=== PATIENT | female | born 1995 | race Caucasian/White ===

== ENCOUNTER 2016-12-28 14:29 | Outpatient (CLI) | payer OTHER | END 2016-12-28 14:30 | disposition home or self-care (01) | DX: Z36 Encounter for antenatal screening of mother (principal) ==

== ENCOUNTER 2017-02-06 03:33 | Outpatient (CLI) | payer OTHER | END 2017-02-06 03:34 | disposition critical access hospital (66) | DX: N85.8 Other specified noninflammatory disorders of uterus (principal) | CPT/HCPCS: A0425; A0427 ==

== ENCOUNTER 2017-02-06 03:55 | Outpatient (CLI) | payer OTHER | END 2017-02-06 05:40 | disposition home or self-care (01) | DX: O99.89 Other specified diseases and conditions complicating pregnancy, childbirth and the puerperium (principal); R10.2 Pelvic and perineal pain; Z3A.35 35 weeks gestation of pregnancy ==

== ENCOUNTER 2017-04-04 09:39 | Inpatient (IN) | payer OTHER ==
[2017-04-04 10:33] LABS: BILIRUBIN,URINE NEGATIVE (NEGATIVE); PH,URINE 6.5 PH (5.0-7.5)
[2017-04-04 10:38] LABS: UA w/ MICROSCOPIC CHARGE YES
[2017-04-04 10:39] LABS: BASOPHILS # (AUTO) 0.1 10^3/uL (0.0-0.1); BASOPHILS % (AUTO) 0.5 %; EOSINOPHILS # (AUTO) 0.8 10^3/uL (0.0-0.7); EOSINOPHILS % (AUTO) 4.5 %; HCT - HEMATOCRIT 36.7 % (37.0-47.0); HGB - HEMOGLOBIN 12.5 g/dL (12.0-16.0); LYMPHOCYTES % (AUTO) 10.5 %; MEAN CORPUSCULAR HEMOGLOBIN 27.1 pg (27.0-31.0); MEAN CORPUSCULAR VOLUME 79.8 fL (81.0-99.0); MEAN PLATELET VOLUME 8.6 fL (7.9-10.8); MONOCYTES % (AUTO) 5.3 %; NEUTROPHILS # (AUTO) 14.7 10^3/uL (1.5-6.6); NEUTROPHILS % (AUTO) 79.2 %; RED CELL DISTRIBUTION WIDTH 12.7 % (12.0-15.0); UNCORRECTED WHITE BLOOD COUNT 18.6 x10^3/uL; WHITE BLOOD COUNT 18.6 x10^3/uL (4.8-10.8)
[2017-04-04 10:46] LABS: UR CULTURE IF IND INDICATED; WBC,URINE 0-3 /HPF (0-5)
[2017-04-04 10:59] LABS: ALBUMIN/GLOBULIN RATIO 0.9 (1.0-2.2); BILIRUBIN,TOTAL 1.4 mg/dL (0.2-1.0); CALCIUM 9.4 mg/dL (8.5-10.3); CREATININE 0.6 mg/dL (0.4-1.0); POTASSIUM 3.9 mmol/L (3.5-5.0); TOTAL PROTEIN 7.5 g/dL (6.7-8.2)
[2017-04-04 11:09] LABS: PLATELET MORPHOLOGY 1+ LARGE PLATELETS (NORMAL)
[2017-04-04 11:10] LABS: PLATELET ESTIMATE, MANUAL NORMAL (130-450,000) (NORMAL)
--- NOTE | 2017-04-04 12:10 | ED Physician Documentation ---
PD HPI ABD PAIN - Stated complaint Stated Complaint: ABD PAIN - Chief complaint Chief Complaint: Abd Pain - History obtained from History obtained from: Patient - History of Present Illness Timing - onset: Today Timing - duration: Hours (5) Timing - details: Gradual onset Pain level max: 9 Pain level now: 0 Quality: Aching, Pain Location: All over / everywhere Radiation: No: Chest, , Lower back, Left flank, Left shoulder, Right flank, Right shoulder, Upper back Improved by: Other (nothing) Worsened by: Other (nothing) Associated symptoms: Nausea. No: Fever, Vomiting, Hematemesis, Diarrhea, Constipation, Melena, Hematochezia, Dysuria, Hematuria, Chest pain, Dizzy, Near syncope / syncope, Loss of appetite, Weight loss, Vaginal bleeding, Vaginal dc Similar symptoms before: No diagnosis Recently seen: Not recently seen - Additional information Additional information: Patient is approximately 1 month . Normal spontaneous vaginal delivery. States has had this abdominal pain 5-6 times in the past month. No fevers. Review of Systems Ten Systems: 10 systems reviewed and negative Constitutional: denies: Fever, Chills Throat: denies: Sore throat Cardiac: denies: Chest pain / pressure Respiratory: denies: Cough GI: denies: Vomiting, Diarrhea, Hematemesis, Bloody / black stool : denies: Dysuria, Frequency, Hesitancy Skin: denies: Rash Musculoskeletal: denies: Neck pain, Back pain Neurologic: denies: Headache PD PAST MEDICAL HISTORY - Past Medical History Past Medical History: Yes Neuro: Seizure disorder - Past Surgical History Past Surgical History: No - Present Medications Home Medications: Ambulatory Orders Medication Instructions Recorded Confirmed Lacosamide [Vimpat] 150 mg PO BID 04/04/17 04/04/17 levETIRAcetam [Keppra] 1,500 mg PO DAILY@0900 04/04/17 04/04/17 levETIRAcetam [Keppra] 2,250 mg PO QPM 04/04/17 04/04/17 - Allergies Allergies/Adverse Reactions: Allergies Allergy/AdvReac Type Severity Reaction Status Date / Time latex Allergy Hives Verified 04/04/17 09:47 acetaminophen AdvReac Anaphylaxis Verified 04/04/17 09:47 diphenhydramine AdvReac Anaphylaxis Verified 04/04/17 09:47 oxycodone AdvReac Anaphylaxis Verified 04/04/17 09:47 tramadol AdvReac Anaphylaxis Verified 04/04/17 09:47 PD ED PE NORMAL - Vitals Vital signs reviewed: Yes - General General: Alert and oriented X 3, No acute distress, Well developed/nourished - HEENT HEENT: Moist mucous membranes - Neck Neck: Supple, no meningeal sign - Cardiac Cardiac: RRR, Strong equal pulses - Respiratory Respiratory: No respiratory distress, Clear bilaterally - Abdomen Abdomen: Soft, Non tender, Non distended - Derm Derm: Warm and dry - Extremities Extremities: No edema - Neuro Neuro: Alert and oriented X 3 - Psych Psych: Normal mood, Normal affect Results - Vitals Vitals: Vital Signs - 24 hr 04/04/17 04/04/17 04/04/17 09:45 11:42 13:50 Temperature 36.4 C L Heart Rate 85 77 89 Respiratory 19 18 12 Rate Blood Pressure 128/74 144/80 H 142/97 H O2 Saturation 98 98 100 04/04/17 16:55 Temperature Heart Rate 90 Respiratory 18 Rate Blood Pressure 134/85 H O2 Saturation 99 Oxygen O2 Source Room air - Labs Labs: Laboratory Tests 04/04/17 04/04/17 04/04/17 10:23 10:23 10:23 WBC 18.6 H RBC 4.60 Hgb 12.5 Hct 36.7 L MCV 79.8 L MCH 27.1 MCHC 34.0 RDW 12.7 Plt Count 302 MPV 8.6 Neut # 14.7 H Lymph # 2.0 [place] # 1.0 Eos # 0.8 H Baso # 0.1 Absolute Nucleated RBC 0.00 Nucleated RBCs 0.0 Manual Slide Review Indicated Platelet Estimate NORMAL (130-450,000) Platelet Morphology 1+ LARGE PLATELETS RBC Morph Micro Appear NORMAL APPEARANCE Sodium 143 Potassium 3.9 Chloride 106 Carbon Dioxide 27 Anion Gap 10.0 BUN 9 Creatinine 0.6 Estimated GFR (MDRD) 126 Glucose 102 H Calcium 9.4 Total Bilirubin 1.4 H Direct Bilirubin AST 295 H ALT 154 H Alkaline Phosphatase 297 H Lactate Dehydrogenase Total Protein 7.5 Albumin 3.6 Globulin 3.9 Albumin/Globulin Ratio 0.9 L Triglycerides Cholesterol LDL Cholesterol, Calc VLDL Cholesterol HDL Cholesterol LDL/HDL Ratio Cholesterol/HDL Ratio Amylase Lipase 910 H Urine Color YELLOW Urine Clarity CLEAR Urine pH 6.5 Ur Specific [place] <=1.005 Urine Protein NEGATIVE Urine Glucose (UA) NEGATIVE Urine Ketones NEGATIVE Urine Occult Blood NEGATIVE Urine Nitrite NEGATIVE Urine Bilirubin NEGATIVE Urine Urobilinogen 0.2 (NORMAL) Ur Leukocyte Esterase TRACE H Urine RBC None Seen Urine WBC 0-3 Ur Squamous Epith Cells NONE SEEN Urine Bacteria None Seen Ur Microscopic Review INDICATED Urine Culture Comments INDICATED 04/04/17 04/04/17 04/04/17 10:23 10:23 10:23 WBC RBC Hgb Hct MCV MCH MCHC RDW Plt Count MPV Neut # Lymph # [place] # Eos # Baso # Absolute Nucleated RBC Nucleated RBCs Manual Slide Review Platelet Estimate Platelet Morphology RBC Morph Micro Appear Sodium Potassium Chloride Carbon Dioxide Anion Gap BUN Creatinine Estimated GFR (MDRD) Glucose Calcium Total Bilirubin Direct Bilirubin 0.6 H AST ALT Alkaline Phosphatase Lactate Dehydrogenase 472 H Total Protein Albumin Globulin Albumin/Globulin Ratio Triglycerides 200 H Cholesterol 165 LDL Cholesterol, Calc 73 VLDL Cholesterol 40 HDL Cholesterol 52 L LDL/HDL Ratio 1.4 Cholesterol/HDL Ratio 3.2 Amylase Lipase Urine Color Urine Clarity Urine pH Ur Specific [place] Urine Protein Urine Glucose (UA) Urine Ketones Urine Occult Blood Urine Nitrite Urine Bilirubin Urine Urobilinogen Ur Leukocyte Esterase Urine RBC Urine WBC Ur Squamous Epith Cells Urine Bacteria Ur Microscopic Review Urine Culture Comments 04/04/17 10:23 WBC RBC Hgb Hct MCV MCH MCHC RDW Plt Count MPV Neut # Lymph # [place] # Eos # Baso # Absolute Nucleated RBC Nucleated RBCs Manual Slide Review Platelet Estimate Platelet Morphology RBC Morph Micro Appear Sodium Potassium Chloride Carbon Dioxide Anion Gap BUN Creatinine Estimated GFR (MDRD) Glucose Calcium Total Bilirubin Direct Bilirubin AST ALT Alkaline Phosphatase Lactate Dehydrogenase Total Protein Albumin Globulin Albumin/Globulin Ratio Triglycerides Cholesterol LDL Cholesterol, Calc VLDL Cholesterol HDL Cholesterol LDL/HDL Ratio Cholesterol/HDL Ratio Amylase 390 H Lipase Urine Color Urine Clarity Urine pH Ur Specific [place] Urine Protein Urine Glucose (UA) Urine Ketones Urine Occult Blood Urine Nitrite Urine Bilirubin Urine Urobilinogen Ur Leukocyte Esterase Urine RBC Urine WBC Ur Squamous Epith Cells Urine Bacteria Ur Microscopic Review Urine Culture Comments - Rads (name of study) RUQ US Radiology: Prelim report reviewed, EMP read contemporaneously, See rad report ( no cholecystitis. Multiple small gallstones.) MRCP Radiology: Prelim report reviewed, EMP read contemporaneously, See rad report ( Cholelithiasis without evidence of cholecystitis. Normal diameter common duct. No choledocholithiasis. . Minimal fatty infiltration of the liver. ) PD MEDICAL DECISION MAKING - ED course Complexity details: reviewed results, re-evaluated patient, considered differential, d/w patient, d/w family, d/w senior environmental consultant ED course: Patient is a 21-year-old female who presents to the emergency department with abdominal pain. This subsided just after arrival to the emergency department. Appears to have pancreatitis and mildly elevated LFTs. Concern for biliary colic, likely recently passed stone. Discussed the case with Dr. Rodas, surgery who recommends an MRCP. This is performed does not show any obstructing stone at this time. She does have significantly elevated white blood cell count. He recommends admission to the hospitalist for observation, IV hydration and to ensure that she improves as expected. Will likely need cholecystectomy as well, unclear if this will happen during this admission or as an outpatient.Discussed with Dr. Belcher, hospitalist who accepts. This document was made in part using voice recognition software. While efforts are made to proofread this document, sound alike and grammatical errors may occur. Departure - Departure Disposition: 66 [facility] DC/Xfer Clinical Impression: Elevated LFTs Pancreatitis Qualifiers: Chronicity: acute Pancreatitis type: biliary Acute pancreatitis complication: unspecified Qualified Code(s): K85.10 - Biliary acute pancreatitis without necrosis or infection Leukocytosis Qualifiers: Leukocytosis type: unspecified Qualified Code(s): D72.829 - Elevated white blood cell count, unspecified Condition: Good Discharge Date/Time: 04/04/17 17:58
--- NOTE | 2017-04-04 13:57 | Ultrasound Report ---
RIGHT UPPER QUADRANT ULTRASOUND: 04/04/2017 CLINICAL INDICATION: Pain, elevated LFTs. TECHNIQUE: Real-time scanning was performed with associate sales representative static images obtained. FINDINGS: The liver measures 18.1 cm. Hepatic echogenicity is increased, suggestive of fatty infiltr ation. No focal parenchymal lesion or intrahepatic biliary dilatation is present. The common bile jessica t measures 4 mm. The gallbladder demonstrates cholelithiasis. No wall thickening or pericholecystic f luid is present. The right kidney measures 12.9 cm, and demonstrates no hydronephrosis. No free fluid is present. IMPRESSION: CHOLELITHIASIS, WITHOUT EVIDENCE OF ACUTE CHOLECYSTITIS OR BILIARY OBSTRUCTION. LIKELY F ATTY INFILTRATION OF THE LIVER. JOB #: [id number] EXT JOB #:
[2017-04-04] MEDS ORDERED: SODIUM CHLORIDE 0.9% 1,000 ML IV ONE ×2 (14:52→16:37)
--- NOTE | 2017-04-04 15:15 | HISTORY & PHYSICAL EXAMINATION ---
Chief Complaint - Chief Complaint Chief Complaint: Abdominal Pain History of Present Illness - Admitted From Admitted From:: home - History Obtained From History obtained from: patient - History of Present Illness Severity: 01/25 to 08/27 Quality: Aching Timing: intermittent Duration: 1month Improved with: nothing Worsened by: nothing Associated Symptoms: episode of vomiting and some nausea HPI Comment/Other: General Surgery Consult: 21 yo female post normal vaginal delivery x 1 month female with hx of seizures presents to ED with 1 month history of right upper quadrant pain and epigastric pain which has been "tolerable" up until yesterday when she began having nausea and vomiting and severe epigastric right upper quadrant pain which resolved by the time she came to the ED. She denies having any previous episodes. She denies any fevers or other associated symptoms other than above. She states that she is currently breast feeding. Denies chills. Ransons criteria for pancreatitis on initial evaluation 3 (LDH 472, AlkP 297, WBC 18.) Review of Systems - Constitutional Constitutional: denies: Fever, Chills, Poor appetite, Diaphoresis, Night sweats - Eyes Eyes: reports: Pain - Ears, Nose & Throat Ears, Nose & Throat: reports: Ear pain - Cardiovascular Cariovascular: denies: Irregular heart rate, Chest pain, Lightheadedness - Respiratory Respiratory: denies: Cough, Wheezing - Gastrointestinal Gastrointestinal: reports: Abdominal pain, Nausea, Vomiting. denies: Constipation, Diarrhea, Coffee grounds emesis - Genitourinary Genitourinary: denies: Dysuria - Musculoskeletal Musculoskeletal: denies: Muscle pain, Muscle aches - Integumentary Integumentary: denies: Rash, Pruritis - Neurological Neurological: reports: General weakness. denies: Headache - Psychiatric Psychiatric: denies: Depression, Anxiety - Endocrine Endocrine: denies: Polyuria, Polydypsia - Hematologic/Lymphatic Hematologic/Lymphatic: denies: Anemia, Bruising - All Other Systems All Other Systems: reports: Reviewed and negative History - Past Medical History Cardiovascular: reports: None Respiratory: reports: None Neuro: reports: Seizure disorder GI: reports: None Meds/Allgy - Home Medications Home Medications: Ambulatory Orders Medication Instructions Recorded Confirmed Lacosamide [Vimpat] 150 mg PO BID 04/04/17 04/04/17 Levetiracetam [Keppra] 750 mg PO BID 04/04/17 04/04/17 - Allergies Allergies/Adverse Reactions: Allergies Allergy/AdvReac Type Severity Reaction Status Date / Time latex Allergy Hives Verified 04/04/17 09:47 acetaminophen AdvReac Anaphylaxis Verified 04/04/17 09:47 diphenhydramine AdvReac Anaphylaxis Verified 04/04/17 09:47 oxycodone AdvReac Anaphylaxis Verified 04/04/17 09:47 tramadol AdvReac Anaphylaxis Verified 04/04/17 09:47 Exam - Vital Signs Vital Signs: Vital Signs x48h Temp Pulse Resp BP Pulse Ox 04/04/17 13:50 89 12 142/97 H 100 04/04/17 11:42 77 18 144/80 H 98 04/04/17 09:45 36.4 C L 85 19 128/74 98 - Physical Exam General Appearance: positive: No acute distress, Alert Eyes Bilateral: positive: PERRL, EOMI, No scleral icterus ENT: positive: Dry mucous membranes Neck: positive: Nml inspection Respiratory: positive: Chest non-tender, Breath sounds nml Cardiovascular: positive: Regular rate & rhythm Peripheral Pulses: positive: 2+ Abdomen: positive: Nml bowel sounds (+BS, soft obese, Non distended, TTP RUQ, Epigastric, supra umbilical. Positive Sahni's no rebound or guarding) Back: negative: CVA tenderness (R), CVA tenderness (L) Skin: positive: Color nml, Warm, Dry Extremities: positive: Full ROM Neurologic/Psychiatric: positive: Oriented x3, CN's nml (2-12) Conclusion/Plan - Lab Results Lab results reviewed: Yes Fish Bones: 04/04/17 10:23 04/04/17 10:23 - Diagnostic Imaging Results Diagnostic Imaging Results: positive: Read contemporaneously (04/04/17US RUQ : Cholelithiasis, without evidence of acute cholecystitis or Biliary obstruction, likely fatty infiltration of Liver 04/04/17 MRCP: IMPRESSION: 1. Cholelithiasis without evidence of cholecystitis. 2. Normal diameter common duct. No choledocholithiasis. 3. Minimal fatty infiltration of the liver.) - Other Other Results/Comments: 21 year old post female with history of seizures, presents with Acute pancreatitis ([place]'s Criteria 3), etiology unknown. Recommend Admit to medicine, High ransons score may need ICU monitoring Aggressive IV hydration Pain control NPO today Urinary output monitoring Am labs If deemed gallstone pancreatitis in nature, then it is recommended that patient has gallbladder removed this admission. Surgery will follow Issues/Core Measures - Anticipated LOS Anticipated Stay Length: 2 or more midnights
--- NOTE | 2017-04-04 16:25 | MRI Preliminary Report ---
Exam: MRI MRCP W/O IMPRESSION: 1. Cholelithiasis without evidence of cholecystitis. 2. Normal diameter common duct. No choledocholithiasis. 3. Minimal fatty infiltration of the liver. [facility] SITE ID: [id number]
--- NOTE | 2017-04-04 16:28 | MRI Report ---
EXAM: MR ABDOMEN WITHOUT CONTRAST (MR CHOLANGIOPANCREATOGRAPHY) EXAM DATE: 04/04/2017 04:07 PM. CLINICAL HISTORY: Abdominal pain, elevated liver function tests and lipase. COMPARISON: None. TECHNIQUE: Multiplanar breath-hold T1 and T2 sequences obtained through the abdomen on an MR scanner. Dedicated 2D and 3D MRCP sequences obtained through the biliary and pancreatic ducts. No intravenous contrast given. FINDINGS: Lung Bases: The lung bases are clear. Liver: Liver is normal in contour with a 7 mm cyst in the right lobe. Minimal fatty infiltration of t he liver. CBD: The extrahepatic ducts appear normal. The CBD is 3 mm in diameter. Gallbladder: Numerous small gallstones without gallbladder wall thickening or adjacent inflammation. Pancreas: The pancreas appears normal with no mass. The pancreatic duct measures 1 mm in diameter and appears normal with no stone or stricture. Spleen: The spleen appears normal. Kidneys and Adrenals: The kidneys appear normal with no mass or hydronephrosis. There are no cysts in the kidneys. The adrenals appear normal. Bowel: The small bowel and colon appear normal with no inflammation or obstruction. Retroperitoneum: The retroperitoneal structures appear normal with no mass or lymphadenopathy. IMPRESSION: 1. Cholelithiasis without evidence of cholecystitis. 2. Normal diameter common duct. No choledocholithiasis. 3. Minimal fatty infiltration of the liver. [facility] Referring Provider Line: [phone] SITE ID: [id number]
[2017-04-04 16:49] LABS: CHOL/HDL RATIO 3.2 (<4.4); CHOLESTEROL 165 mg/dL; HDL CHOLESTEROL 52 mg/dL; LDL/HDL RATIO 1.4 (<4.4); TRIGLYCERIDES 200 mg/dL; VLDL CHOLESTEROL 40 mg/dL
[2017-04-04] MEDS ORDERED: ZOLPIDEM 5 MG TABLET PO PRN (17:08)
[2017-04-04] MEDS ORDERED: PROCHLORPERAZINE 10 MG/2 ML VIAL IVP PRN (17:08)
[2017-04-04] MEDS ORDERED: ONDANSETRON 4 MG/2 ML VIAL IVP PRN (17:08)
[2017-04-04] MEDS ORDERED: PROMETHAZINE 25 MG/1 ML VIAL IM PRN (17:08)
[2017-04-04] MEDS ORDERED: HYDROmorphone 1 MG/ML SYRINGE IVP PRN (17:08)
[2017-04-04] MEDS ORDERED: SODIUM CHLORIDE FLUSH 0.9% 10 ML SYRINGE IVP PRN (17:08)
--- NOTE | 2017-04-04 17:45 | HISTORY & PHYSICAL EXAMINATION ---
Chief Complaint - Chief Complaint Chief Complaint: abdominal pain History of Present Illness - Admitted From Admitted From:: emergency department - History Obtained From Records Reviewed: yes History obtained from: patient Exam Limitations: no - History of Present Illness HPI Comment/Other: Patient is 21-year-old female with a past medical history significant for epilepsy and asthma who presented to the emergency department with a chief complaint of abdominal pain. Patient states the abdominal pain has been ongoing for the last month. The patient is one month and states that she has been having abdominal pain off and on since her delivery. She states that she cannot localize where the pain is she states that when the pain starts as very severe and is over the entire abdomen. She denies any radiation of the pain. She states the pain usually lasts anywhere from a few minutes to half an hour and then resolves. She does associate the pain with eating. She states that most of the episodes have occurred after she ate a meal. She states that the symptoms worsened over the last day she states that she had 6 episodes of abdominal pain today. She also states that since yesterday she started feeling nauseated and has had 2 episodes of vomiting which he never had before. She describes the abdominal pain as a spasming type of pain. She denies any fevers but does admit to chills. She denies any alcohol or tobacco use. She denies any recent illnesses. She denies any coffee-ground emesis, vaginal bleeding, hematochezia or bright red blood per rectum. On presentation to the emergency department the patient was afebrile and vital signs were within normal limits. The patient underwent routine lab work which revealed elevated liver enzymes with total bilirubin of 1.4, AST of 295, ALT of 154, alkaline phosphatase 297, LDH of 472, lipase 910 and amylase 390. This was concerning for gallstone pancreatitis and possible common bile duct stone. The patient underwent imaging study initially with a abdominal ultrasound which revealed cholelithiasis without evidence of acute cholecystitis or biliary obstruction. The patient then underwent an MRCP which revealed cholelithiasis without evidence of cholecystitis and normal diameter common bile duct. Given these findings the patient was thought to likely have had gallstone pancreatitis with a stone that had passed through and she was admitted for treatment of gallstone pancreatitis. The patient also had triglyceride level checked in the ER that was only slightly elevated. Review of Systems - Constitutional Constitutional: reports: Chills. denies: Fatigue, Fever, Malaise, Weakness, Poor appetite, Diaphoresis, Night sweats, Weight gain, Weight loss - Eyes Eyes: denies: Pain, Irritation, Amaurosis, Blurred vision, Spots in vision, Field loss, Vision loss, Dipolpia, Corrective lenses, Other - Ears, Nose & Throat Ears, Nose & Throat: denies: Ear pain, Hearing loss, Hearing aids, Tinnitus, Vertigo, Nasal pain, Nasal discharge, Nosebleeds, Nasal obstruction, Nasal congestion, Postnasal drainage, Dentures, Sore throat, Hoarseness, Mouth lesions , Bleeding gums, Dental decay, Dental pain, Other - Cardiovascular Cariovascular: denies: Irregular heart rate, Palpitations, Chest pain, Edema, Lightheadedness, Syncope, Exertional dyspnea, Decr. exercise tolerance, Orthopnea, Other - Respiratory Respiratory: denies: Cough, Sputum production, Wheezing, Snoring, Hemoptysis, Orthopnea, SOB at rest, SOB with exertion, Apnea, Stridor, Pleuritic pain, Other - Gastrointestinal Gastrointestinal: reports: Abdominal pain, Nausea, Vomiting, Bile emesis. denies: Abdominal distention, Constipation, Diarrhea, Change in bowel habits, Rectal bleeding, Black stools, Bloody stools, Ortiz blood emesis, Coffee grounds emesis, Bloating, Poor appetite - Genitourinary Genitourinary: denies: Dysuria, Frequency, Urgency, Hematuria, Incontinence, Flank pain, Nocturia, Urethral discharge, Sexual dysfunction, Other - Musculoskeletal Musculoskeletal: denies: Muscle pain, Back pain, Muscle aches, Stiffness, Limited range of motion, Muscle weakness, Gout, Joint pain, Joint swelling, Other - Integumentary Integumentary: denies: Rash, Pruritis, Lesions, Dryness, Lumps, Acne, Pigment changes, Nail changes, Hair changes, Other - Neurological Neurological: denies: General weakness, Focal weakness, Headache, Dizziness, Numbness, Memory problems, Pre-existing deficit, Abnormal gait, Seizures, Incoordination, Slurred speech, Other - Psychiatric Psychiatric: denies: Depression, Anxiety, Suicidal, Delusions, Hallucinations, Homicidal, Other - Endocrine Endocrine: denies: Polyuria, Polydypsia, Polyphagia, Intolerance to cold, Intolerance to heat, Other - Hematologic/Lymphatic Hematologic/Lymphatic: denies: Anemia, Bruising, Petechiae, Blood clots, Lymphadenopathy, Bleeding tendencies, Recurrent infections, Other History - Past Medical History Cardiovascular: reports: None Respiratory: reports: Asthma Neuro: reports: Seizure disorder GI: reports: None - Family & Social History Family History: Mother: Cancer (Ovarian), Other family: CAD (Grandfather) Living arrangement: At home Living Situation: With spouse/s.o. Social History Notes: Patient is originally from [place] and moved to [place] with her who is in the [place]. She had a baby girl one month ago. Her is going to be deployed for a month starting on Saturday and the patient needs to get home by then to take care of her daughter. - Substance History Use: Uses substance without health or social issues: NONE Abuse: Recurrent use of substance despite neg consequences: NONE Dependence: Experiences withdrawal or developed tolerances: NONE - POLST Patient has POLST: No POLST Status: Full Code Meds/Allgy - Home Medications Home Medications: Ambulatory Orders Medication Instructions Recorded Confirmed Lacosamide [Vimpat] 150 mg PO BID 04/04/17 04/04/17 Levetiracetam [Keppra] 750 mg PO BID 04/04/17 04/04/17 - Allergies Allergies/Adverse Reactions: Allergies Allergy/AdvReac Type Severity Reaction Status Date / Time latex Allergy Hives Verified 04/04/17 09:47 acetaminophen AdvReac Anaphylaxis Verified 04/04/17 09:47 diphenhydramine AdvReac Anaphylaxis Verified 04/04/17 09:47 oxycodone AdvReac Anaphylaxis Verified 04/04/17 09:47 tramadol AdvReac Anaphylaxis Verified 04/04/17 09:47 Exam - Vital Signs Reviewed Vital Signs: Yes Vital Signs: Vital Signs x48h Temp Pulse Resp BP Pulse Ox 04/04/17 16:55 90 18 134/85 H 99 04/04/17 13:50 89 12 142/97 H 100 04/04/17 11:42 77 18 144/80 H 98 04/04/17 09:45 36.4 C L 85 19 128/74 98 - Physical Exam General Appearance: positive: No acute distress, Alert Eyes Bilateral: positive: Normal inspection, PERRL, EOMI, No lid inflammation, Conjunctivae nml, No scleral icterus ENT: positive: ENT inspection nml, Pharynx nml, Dry mucous membranes. negative : Purulent nasal drainage, Pharyngeal erythema, Oral lesions Neck: positive: Nml inspection, Thyroid nml, No JVD, Trachea midline. negative : Thyromegaly, Lymphadenopathy (R), Lymphadenopathy (L) Respiratory: positive: Chest non-tender, No respiratory distress, Breath sounds nml. negative: Wheezes, Rales, Rhonchi Cardiovascular: positive: Regular rate & rhythm, No murmur, No gallop Peripheral Pulses: positive: 2+ Abdomen: positive: Nml bowel sounds, Tenderness (epigastric and RUQ). negative : Guarding, Rebound, Hepatomegaly, Splenomegaly Back: positive: Nml inspection. negative: CVA tenderness (R), CVA tenderness (L ) Skin: positive: Color nml, No rash, Warm, Dry Extremities: positive: Non-tender, Full ROM, Nml appearance, No pedal edema Neurologic/Psychiatric: positive: Oriented x3, CN's nml (2-12), Motor nml, Sensation nml, Mood/affect nml Conclusion/Plan - Problem List (1) Pancreatitis Conclusion/Plan: Patient presented with abdominal pain for the past 1 month with worsening pain over the last day and increased nausea and vomiting Labs revealed elevated LFTs and elevated Lipase and amylase consistent with pancreatitis Abd ultrasound showed gallstones but no cholecystitis or CBD stone MRCP was also negative for CBD stone or cholecystitis but again showed gallstones Patient does not drink and her triglyceride level was normal Likely gallstone pancreatitis Plan: NPO IVFs Pain control Anti-emetics Surgery consult for cholecystectomy Daily amylase and lipase BiSAP score is 0 Ransons score of 4 which give 15% predicted mortality Qualifiers: Chronicity: acute Pancreatitis type: biliary Acute pancreatitis complication: unspecified Qualified Code(s): K85.10 - Biliary acute pancreatitis without necrosis or infection (2) Cholelithiasis Conclusion/Plan: Gallstones seen on ultrasound and MRCP Likely cause of pancreatitis and biliary colic for last month Currently no CBD stones Patient appears to have passed obstructing stone Surgery consult for cholecystectomy once pancreatitis cools down (3) Epilepsy Conclusion/Plan: Stable No recent seizures Continue home meds (4) Asthma Conclusion/Plan: Stable No wheezing Albuterol prn (5) Fatty liver Conclusion/Plan: Likely secondary to obesity and poor diet Patient counselled about weight loss and lifestyle changes (6) Prophylactic use of low molecular weight heparin for venous thromboembolism Conclusion/Plan: On lovenox - Lab Results Lab results reviewed: Yes Fish Bones: 04/04/17 10:23 04/04/17 10:23 - Diagnostic Imaging Results Diagnostic Imaging Results: positive: Final report reviewed - EKG Results EKG Interpreted Independently: Yes Issues/Core Measures - Anticipated LOS Anticipated Stay Length: 2 or more midnights - DVT/VTE - Prophylaxis VTE/DVT Prophylaxis med ordered at admit?: Yes
[2017-04-04] MEDS ORDERED: ALBUTEROL NEB 2.5 MG/3 ML INH PRN (18:01)
[2017-04-04] MEDS: SODIUM CHLORIDE 0.9% 1,000 ML IV SCH (19:05)
[2017-04-04] MEDS ORDERED: levETIRAcetam 250 MG TABLET PO SCH ×2 (21:00)
[2017-04-04] MEDS: IBUPROFEN 600 MG TABLET PO PRN (21:20)
[2017-04-04] MEDS: SODIUM CHLORIDE FLUSH 0.9% 10 ML SYRINGE IVP SCH (21:21)
[2017-04-04] MEDS: LACOSAMIDE 150 MG PO SCH (21:21)
[2017-04-05] MEDS: SODIUM CHLORIDE 0.9% 1,000 ML IV SCH ×3 (02:41→18:41)
[2017-04-05 06:00] LABS: BASOPHILS % (AUTO) 0.3 %; EOSINOPHILS % (AUTO) 9.1 %; HCT - HEMATOCRIT 35.3 % (37.0-47.0); HGB - HEMOGLOBIN 11.5 g/dL (12.0-16.0); LYMPHOCYTES % (AUTO) 25.3 %; MEAN CORPUSCULAR HEMOGLOBIN 26.6 pg (27.0-31.0); MEAN CORPUSCULAR HGB CONC 32.6 g/dL (32.0-36.0); MEAN CORPUSCULAR VOLUME 81.5 fL (81.0-99.0); MEAN PLATELET VOLUME 8.5 fL (7.9-10.8); MONOCYTES % (AUTO) 5.4 %; NEUTROPHILS % (AUTO) 59.9 %; RED BLOOD COUNT 4.34 10^6/uL (4.20-5.40); UNCORRECTED WHITE BLOOD COUNT 12.6 x10^3/uL; WHITE BLOOD COUNT 12.6 x10^3/uL (4.8-10.8)
[2017-04-05] MEDS: PANTOPRAZOLE 40 MG TABLET PO SCH (06:03)
[2017-04-05] MEDS: SODIUM CHLORIDE FLUSH 0.9% 10 ML SYRINGE IVP SCH ×3 (06:03→20:01)
[2017-04-05 06:16] LABS: ALBUMIN/GLOBULIN RATIO 0.9 (1.0-2.2); AMYLASE 251 U/L (28-100); BILIRUBIN,TOTAL 0.7 mg/dL (0.2-1.0); BUN - BLOOD UREA NITROGEN 8 mg/dL (6-20); CALCIUM 8.6 mg/dL (8.5-10.3); CARBON DIOXIDE - CO2 26 mmol/L (21-32); CHLORIDE 111 mmol/L (101-111); CHOLESTEROL 218 mg/dL; CREATININE 0.6 mg/dL (0.4-1.0); GFR - MDRD 126 (>89); GLUCOSE 80 mg/dL (70-100); HDL CHOLESTEROL 44 mg/dL; LDL/HDL RATIO 3.3 (<4.4); LIPASE 92 U/L (22-51); MAGNESIUM 1.9 mg/dL (1.7-2.8); POTASSIUM 3.8 mmol/L (3.5-5.0); SODIUM 144 mmol/L (135-145); TOTAL PROTEIN 6.5 g/dL (6.7-8.2); TRIGLYCERIDES 153 mg/dL; VLDL CHOLESTEROL 31 mg/dL
[2017-04-05] MEDS: LACOSAMIDE 150 MG PO SCH (06:59)
[2017-04-05 07:02] LABS: BAND NEUTROPHILS % (MANUAL) 4 %; EOSINOPHILS % (MANUAL) 5 %; LYMPHOCYTES % (MANUAL) 34 %; NEUTROPHILS % (MANUAL) 50 %; NP AUTO DIFFERENTIAL? YES; NP MAN DIFFERENTIAL? NO; PLATELET ESTIMATE, MANUAL NORMAL (130-450,000) (NORMAL); TOTAL CELLS COUNTED 100
--- NOTE | 2017-04-05 07:38 | PROVIDER PROGRESS NOTE ---
Assessment/Plan - Problem List (1) Pancreatitis Qualifiers: Chronicity: acute Pancreatitis type: unspecified pancreatitis type Acute pancreatitis complication: unspecified Qualified Code(s): K85.90 - Acute pancreatitis without necrosis or infection, unspecified Assessment/Plan: 21 yo female with hx of epilepsy & asthma, present with acute pancreatitis found to have cholelithiasis & elevated triglycerides Patient condition much improved. LFT's/ Lipase trending down. Patient informed that she should have a cholecystectomy this admission before discharge. 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 The risks of recurrent pancreatitis if caused by gallstones, possible much worse was discussed with the patient and why the current dogma is to remove the gallbladder. The patient stated she understands the risks. Since she is adamant about leaving in the next day or so and not having a cholecystectomy she was instructed to follow up with the surgical clinic and to call the clinic to schedule an appointment for follow up as soon as she is discharged so a planned cholecystectomy can be performed. - Current Meds Current Meds: Current Medications Generic Name Dose Route Start Last Admin Trade Name Freq PRN Reason Stop Dose Admin Sodium Chloride 1,000 mls @ 125 mls/hr 04/04/17 18:00 04/05/17 02:41 Normal Saline 0.9% IV 125 mls/hr .Q8H ANAIS Administration Ibuprofen 600 mg 04/04/17 17:08 04/04/17 21:20 Motrin PO 600 mg Q6HR PRN Administration Pain 1 to 4 Levetiracetam 2,250 mg 04/04/17 21:00 04/04/17 21:21 Keppra PO Not Given QPM ANAIS Levetiracetam 1,500 mg 04/05/17 09:00 04/05/17 07:00 Keppra PO 1,500 mg DAILY@0900 ANAIS Administration Pantoprazole Sodium 40 mg 04/05/17 07:00 04/05/17 06:03 Protonix PO Not Given QDAC ANAIS (Lacosamide [Vimpat] 1 each 04/04/17 21:00 04/05/17 06:59 150 Mg) Tab PO 1 each BID ANAIS Administration Sodium Chloride 10 ml 04/04/17 22:00 04/05/17 06:03 Normal Saline Flush 0.9% IVP Not Given Q8HR ANAIS - Lab Result Fish Bone Diagrams: 04/05/17 05:45 04/05/17 05:45 Subjective - Subjective Patient Reports: Feeling Better, Resting Comfortably, No Complaints Objective Vital Signs: Vital Signs - 24 hr 04/04/17 04/04/17 04/04/17 18:05 20:15 21:26 Temperature 36.9 C 37.6 C H Heart Rate 70 Heart Rate [ 69 71 Brachial] Respiratory 16 16 18 Rate Blood Pressure 128/81 H 132/86 H [Left Brachial artery] O2 Saturation 99 98 04/05/17 00:08 Temperature 36.7 C Heart Rate Heart Rate [ 71 Brachial] Respiratory 16 Rate Blood Pressure 127/76 [Left Brachial artery] O2 Saturation 99 Oxygen O2 Source Room air I&O (Last 24 Hrs): Intake and Output Totals x24h 04/03/17 04/04/17 04/05/17 23:59 23:59 23:59 Intake Total 1300 Balance 1300 General: Alert, Oriented x3 HEENT: PERRLA, EOMI Neck: Supple Neuro: Alert Cardiovascular: Regular rate Respiratory: Breath sounds nml Abdomen: Normal bowel sounds, Soft, No tenderness - Results Results: Laboratory Results WBC 12.6 x10^3/uL (4.8-10.8) H 04/05/17 05:45 RBC 4.34 10^6/uL (4.20-5.40) 04/05/17 05:45 Hgb 11.5 g/dL (12.0-16.0) L 04/05/17 05:45 Hct 35.3 % (37.0-47.0) L 04/05/17 05:45 MCV 81.5 fL (81.0-99.0) 04/05/17 05:45 MCH 26.6 pg (27.0-31.0) L 04/05/17 05:45 MCHC 32.6 g/dL (32.0-36.0) 04/05/17 05:45 RDW 13.0 % (12.0-15.0) 04/05/17 05:45 Plt Count 296 10^3/uL (130-450) 04/05/17 05:45 MPV 8.5 fL (7.9-10.8) 04/05/17 05:45 Neut # Not Reportable 04/05/17 05:45 Lymph # Not Reportable 04/05/17 05:45 [place] # Not Reportable 04/05/17 05:45 Eos # Not Reportable 04/05/17 05:45 Baso # Not Reportable 04/05/17 05:45 Absolute Nucleated RBC Not Reportable 04/05/17 05:45 Total Counted 100 04/05/17 05:45 Band Neuts % (Manual) 4 % (0-10) 04/05/17 05:45 Neutrophils # (Manual) 6.8 10^3/uL (1.5-6.6) H 04/05/17 05:45 Lymphocytes # (Manual) 4.3 10^3/uL (1.5-3.5) H 04/05/17 05:45 Monocytes # (Manual) 0.9 10^3/uL (0.0-1.0) 04/05/17 05:45 Eosinophils # (Manual) 0.6 10^3/uL (0-0.7) 04/05/17 05:45 Nucleated RBCs Not Reportable 04/05/17 05:45 Differential Comment MANUAL DIFFERENTIAL 04/05/17 05:45 Manual Slide Review Indicated 04/04/17 10:23 Platelet Estimate NORMAL (130-450,000) (NORMAL) 04/05/17 05:45 Platelet Morphology 1+ LARGE PLATELETS (NORMAL) 04/04/17 10:23 RBC Morph Micro Appear NORMAL APPEARANCE (NORMAL) 04/05/17 05:45 Sodium 144 mmol/L (135-145) 04/05/17 05:45 Potassium 3.8 mmol/L (3.5-5.0) 04/05/17 05:45 Chloride 111 mmol/L (101-111) 04/05/17 05:45 Carbon Dioxide 26 mmol/L (21-32) 04/05/17 05:45 Anion Gap 7.0 (6-13) 04/05/17 05:45 BUN 8 mg/dL (6-20) 04/05/17 05:45 Creatinine 0.6 mg/dL (0.4-1.0) 04/05/17 05:45 Estimated GFR (MDRD) 126 (>89) 04/05/17 05:45 Glucose 80 mg/dL (70-100) 04/05/17 05:45 Lactic Acid 0.6 mmol/L (0.5-2.2) 04/05/17 05:45 Calcium 8.6 mg/dL (8.5-10.3) 04/05/17 05:45 Phosphorus 4.0 mg/dL (2.5-4.6) 04/05/17 05:45 Magnesium 1.9 mg/dL (1.7-2.8) 04/05/17 05:45 Total Bilirubin 0.7 mg/dL (0.2-1.0) 04/05/17 05:45 Direct Bilirubin 0.6 mg/dL (0.1-0.5) H 04/04/17 10:23 AST 109 IU/L (10-42) H 04/05/17 05:45 ALT 160 IU/L (10-60) H 04/05/17 05:45 Alkaline Phosphatase 261 IU/L (42-121) H 04/05/17 05:45 Lactate Dehydrogenase 472 IU/L (91-225) H 04/04/17 10:23 Total Protein 6.5 g/dL (6.7-8.2) L 04/05/17 05:45 Albumin 3.1 g/dL (3.2-5.5) L 04/05/17 05:45 Globulin 3.4 g/dL (2.1-4.2) 04/05/17 05:45 Albumin/Globulin Ratio 0.9 (1.0-2.2) L 04/05/17 05:45 Triglycerides 153 mg/dL (-149) H 04/05/17 05:45 Cholesterol 218 mg/dL (-199) H 04/05/17 05:45 LDL Cholesterol, Calc 143 mg/dL (-129) H 04/05/17 05:45 VLDL Cholesterol 31 mg/dL 04/05/17 05:45 HDL Cholesterol 44 mg/dL (60-) L 04/05/17 05:45 LDL/HDL Ratio 3.3 (<4.4) 04/05/17 05:45 Cholesterol/HDL Ratio 5.0 (<4.4) 04/05/17 05:45 Amylase 251 U/L (28-100) H 04/05/17 05:45 Lipase 92 U/L (22-51) H 04/05/17 05:45 Urine Color YELLOW 04/04/17 10:23 Urine Clarity CLEAR (CLEAR) 04/04/17 10:23 Urine pH 6.5 PH (5.0-7.5) 04/04/17 10:23 Ur Specific [place] <=1.005 (1.002-1.030) 04/04/17 10:23 Urine Protein NEGATIVE mg/dL (NEGATIVE) 04/04/17 10:23 Urine Glucose (UA) NEGATIVE mg/dL (NEGATIVE) 04/04/17 10:23 Urine Ketones NEGATIVE mg/dL (NEGATIVE) 04/04/17 10:23 Urine Occult Blood NEGATIVE (NEGATIVE) 04/04/17 10:23 Urine Nitrite NEGATIVE (NEGATIVE) 04/04/17 10:23 Urine Bilirubin NEGATIVE (NEGATIVE) 04/04/17 10:23 Urine Urobilinogen 0.2 (NORMAL) E.U./dL (NORMAL) 04/04/17 10:23 Ur Leukocyte Esterase TRACE (NEGATIVE) H 04/04/17 10:23 Urine RBC None Seen /HPF (0-5) 04/04/17 10:23 Urine WBC 0-3 /HPF (0-5) 04/04/17 10:23 Ur Squamous Epith Cells NONE SEEN (<= Few) 04/04/17 10:23 Urine Bacteria None Seen /HPF (None Seen) 04/04/17 10:23 Ur Microscopic Review INDICATED 04/04/17 10:23 Urine Culture Comments INDICATED 04/04/17 10:23
[2017-04-05] MEDS ORDERED: LEVETIRACETAM 750 MG PO SCH (08:52)
[2017-04-05] MEDS ORDERED: levETIRAcetam 250 MG TABLET PO SCH (09:00)
[2017-04-05] MEDS: POLYETHYLENE GLYCOL 3350 17 GM PACKET PO SCH (10:18)
[2017-04-05] MEDS: ENOXAPARIN 40 MG/0.4 ML SYRINGE SUBQ SCH (10:18)
[2017-04-05] MEDS: LEVETIRACETAM 750 MG PO SCH (10:23)
[2017-04-05] MEDS ORDERED: LACOSAMIDE 150 MG PO SCH (10:37)
--- NOTE | 2017-04-05 17:03 | PROVIDER PROGRESS NOTE ---
Assessment/Plan - Problem List (1) Pancreatitis Qualifiers: Chronicity: acute Pancreatitis type: unspecified pancreatitis type Acute pancreatitis complication: unspecified Qualified Code(s): K85.90 - Acute pancreatitis without necrosis or infection, unspecified Assessment/Plan: Patient presented with abdominal pain for the past 1 month with worsening pain over the last day and increased nausea and vomiting Labs revealed elevated LFTs and elevated Lipase and amylase consistent with pancreatitis Abd ultrasound showed gallstones but no cholecystitis or CBD stone MRCP was also negative for CBD stone or cholecystitis but again showed gallstones Patient does not drink alcohol and her triglyceride level was normal Likely gallstone pancreatitis Patient is NPO and getting IVFs She only required motrin for headache overnight and has not been nauseated Her Lipase is down to 92 from 910 and her amylase is down to 251 from 390 Her LFTs are also improving slowly Surgery is on board Will take her to OR tomorrow for lap keo if enzymes continue to improve 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 Qualifiers: Chronicity: acute Pancreatitis type: biliary Acute pancreatitis complication: unspecified Qualified Code(s): K85.10 - Biliary acute pancreatitis without necrosis or infection (2) Cholelithiasis Conclusion/Plan: Gallstones seen on ultrasound and MRCP Likely cause of pancreatitis and biliary colic for last month Currently no CBD stones Patient appears to have passed obstructing stone Surgery will take patient to OR for lap keo tomorrow if enzymes continue to improve (3) Epilepsy Conclusion/Plan: Stable No recent seizures Continue home meds (4) Asthma Conclusion/Plan: Stable No wheezing Albuterol prn (5) Fatty liver Conclusion/Plan: Likely secondary to obesity and poor diet Patient counselled about weight loss and lifestyle changes (6) Prophylactic use of low molecular weight heparin for venous thromboembolism Conclusion/Plan: On lovenox - Current Meds Current Meds: Current Medications Generic Name Dose Route Start Last Admin Trade Name Freq PRN Reason Stop Dose Admin Enoxaparin Sodium 40 mg 04/05/17 09:00 04/05/17 10:18 Lovenox SUBQ Not Given DAILY ANAIS Sodium Chloride 1,000 mls @ 125 mls/hr 04/04/17 18:00 04/05/17 10:58 Normal Saline 0.9% IV 125 mls/hr .Q8H ANAIS Administration Ibuprofen 600 mg 04/04/17 17:08 04/04/17 21:20 Motrin PO 600 mg Q6HR PRN Administration Pain 1 to 4 Pantoprazole Sodium 40 mg 04/05/17 07:00 04/05/17 06:03 Protonix PO Not Given QDAC ANAIS Patient Own Medication 2 each 04/05/17 09:00 04/05/17 10:23 Patient Own Medication PO Not Given QDAC ANAIS Polyethylene Glycol 17 gm 04/05/17 09:00 04/05/17 10:18 Miralax PO Not Given DAILY ANAIS Sodium Chloride 10 ml 04/04/17 22:00 04/05/17 16:04 Normal Saline Flush 0.9% IVP Not Given Q8HR ANAIS - Lab Result Lab results reviewed: Yes Fish Bone Diagrams: 04/05/17 05:45 04/05/17 05:45 - EKG Results EKG Interpreted Independently: Yes - Diagnostic Imaging Results Diagnostic Imaging Results: positive: Final report reviewed - Additional Planning Condition/Complexity: Improved My Orders: My Active Orders 04/04/17 18:01 Albuterol 2.5 mg INH RTQ4H PRN 04/04/17 21:13 RT [Nebulizer/MDI Tx.] [RC] .Q4PRN 04/05/17 08:52 Patient Own Med [Patient Own Medication] 3 each PO DAILY@1900 04/05/17 09:00 Patient Own Med [Patient Own Medication] 2 each PO QDAC 04/05/17 10:37 Patient Own Med [Patient Own Medication] 1 each PO 0700,1900 Consult/Specialty: Surgery Plan Discussed with:: Patient Time Spent: 31-60 minutes Subjective - Subjective Patient Reports: Feeling Better (Patient states her pain is better controlled, she denies any abdominal pain or nausea. She does state she has a headache and is starving. She denies any fevers or chills.) Nursing Reports: No Complaints Objective Vital Signs: Vital Signs - 24 hr 04/04/17 04/04/17 04/04/17 18:05 20:15 21:26 Temperature 36.9 C 37.6 C H Heart Rate 70 Heart Rate [ 69 71 Brachial] Respiratory 16 16 18 Rate Blood Pressure 128/81 H 132/86 H [Left Brachial artery] O2 Saturation 99 98 05/19/17 05/19/17 05/19/17 00:08 07:58 10:00 Temperature 36.7 C 37.3 C Heart Rate 67 Heart Rate [ 71 84 Brachial] Respiratory 16 16 16 Rate Blood Pressure 127/76 126/84 H [Left Brachial artery] O2 Saturation 99 98 Oxygen O2 Source Room air I&O (Last 24 Hrs): Intake and Output Totals x24h 04/03/17 04/04/17 04/05/17 23:59 23:59 23:59 Intake Total 2240 Balance 2240 General: Alert, Oriented x3, Cooperative, No acute distress HEENT: Atraumatic, PERRLA, EOMI, Mucous membr. moist/pink Neck: Supple, No JVD, No thyromegaly, +2 carotid pulse wo bruit, No LAD Lymphatic: no adenopathy Neuro: Alert, Non Focal, CN 2-12 Grossly Intact, Oriented Times 3 Cardiovascular: Regular rate, Normal S1, Normal S2, No murmurs Respiratory: Chest non-tender, No respiratory distress, Breath sounds nml Abdomen: Normal bowel sounds, Soft, Other (epigastric tenderness mild, no guarding) Extremities: No clubbing, No cyanosis, No edema, Normal pulses Skin: No rashes, No breakdown, No significant lesion - Results Results: Laboratory Results WBC 12.6 x10^3/uL (4.8-10.8) H 04/05/17 05:45 RBC 4.34 10^6/uL (4.20-5.40) 04/05/17 05:45 Hgb 11.5 g/dL (12.0-16.0) L 04/05/17 05:45 Hct 35.3 % (37.0-47.0) L 04/05/17 05:45 MCV 81.5 fL (81.0-99.0) 04/05/17 05:45 MCH 26.6 pg (27.0-31.0) L 04/05/17 05:45 MCHC 32.6 g/dL (32.0-36.0) 04/05/17 05:45 RDW 13.0 % (12.0-15.0) 04/05/17 05:45 Plt Count 296 10^3/uL (130-450) 04/05/17 05:45 MPV 8.5 fL (7.9-10.8) 04/05/17 05:45 Neut # Not Reportable 04/05/17 05:45 Lymph # Not Reportable 04/05/17 05:45 Tyrrell # Not Reportable 04/05/17 05:45 Eos # Not Reportable 04/05/17 05:45 Baso # Not Reportable 04/05/17 05:45 Absolute Nucleated RBC Not Reportable 04/05/17 05:45 Total Counted 100 04/05/17 05:45 Band Neuts % (Manual) 4 % (0-10) 04/05/17 05:45 Neutrophils # (Manual) 6.8 10^3/uL (1.5-6.6) H 04/05/17 05:45 Lymphocytes # (Manual) 4.3 10^3/uL (1.5-3.5) H 04/05/17 05:45 Monocytes # (Manual) 0.9 10^3/uL (0.0-1.0) 04/05/17 05:45 Eosinophils # (Manual) 0.6 10^3/uL (0-0.7) 04/05/17 05:45 Nucleated RBCs Not Reportable 04/05/17 05:45 Differential Comment MANUAL DIFFERENTIAL 04/05/17 05:45 Manual Slide Review Indicated 04/04/17 10:23 Platelet Estimate NORMAL (130-450,000) (NORMAL) 04/05/17 05:45 Platelet Morphology 1+ LARGE PLATELETS (NORMAL) 04/04/17 10:23 RBC Morph Micro Appear NORMAL APPEARANCE (NORMAL) 04/05/17 05:45 Sodium 144 mmol/L (135-145) 04/05/17 05:45 Potassium 3.8 mmol/L (3.5-5.0) 04/05/17 05:45 Chloride 111 mmol/L (101-111) 04/05/17 05:45 Carbon Dioxide 26 mmol/L (21-32) 04/05/17 05:45 Anion Gap 7.0 (6-13) 04/05/17 05:45 BUN 8 mg/dL (6-20) 04/05/17 05:45 Creatinine 0.6 mg/dL (0.4-1.0) 04/05/17 05:45 Estimated GFR (MDRD) 126 (>89) 04/05/17 05:45 Glucose 80 mg/dL (70-100) 04/05/17 05:45 Lactic Acid 0.6 mmol/L (0.5-2.2) 04/05/17 05:45 Calcium 8.6 mg/dL (8.5-10.3) 04/05/17 05:45 Phosphorus 4.0 mg/dL (2.5-4.6) 04/05/17 05:45 Magnesium 1.9 mg/dL (1.7-2.8) 04/05/17 05:45 Total Bilirubin 0.7 mg/dL (0.2-1.0) 04/05/17 05:45 Direct Bilirubin 0.6 mg/dL (0.1-0.5) H 04/04/17 10:23 AST 109 IU/L (10-42) H 04/05/17 05:45 ALT 160 IU/L (10-60) H 04/05/17 05:45 Alkaline Phosphatase 261 IU/L (42-121) H 04/05/17 05:45 Lactate Dehydrogenase 472 IU/L (91-225) H 04/04/17 10:23 Total Protein 6.5 g/dL (6.7-8.2) L 04/05/17 05:45 Albumin 3.1 g/dL (3.2-5.5) L 04/05/17 05:45 Globulin 3.4 g/dL (2.1-4.2) 04/05/17 05:45 Albumin/Globulin Ratio 0.9 (1.0-2.2) L 04/05/17 05:45 Triglycerides 153 mg/dL (-149) H 04/05/17 05:45 Cholesterol 218 mg/dL (-199) H 04/05/17 05:45 LDL Cholesterol, Calc 143 mg/dL (-129) H 04/05/17 05:45 VLDL Cholesterol 31 mg/dL 04/05/17 05:45 HDL Cholesterol 44 mg/dL (60-) L 04/05/17 05:45 LDL/HDL Ratio 3.3 (<4.4) 04/05/17 05:45 Cholesterol/HDL Ratio 5.0 (<4.4) 04/05/17 05:45 Amylase 251 U/L (28-100) H 04/05/17 05:45 Lipase 92 U/L (22-51) H 04/05/17 05:45 Urine Color YELLOW 04/04/17 10:23 Urine Clarity CLEAR (CLEAR) 04/04/17 10:23 Urine pH 6.5 PH (5.0-7.5) 04/04/17 10:23 Ur Specific [place] <=1.005 (1.002-1.030) 04/04/17 10:23 Urine Protein NEGATIVE mg/dL (NEGATIVE) 04/04/17 10:23 Urine Glucose (UA) NEGATIVE mg/dL (NEGATIVE) 04/04/17 10:23 Urine Ketones NEGATIVE mg/dL (NEGATIVE) 04/04/17 10:23 Urine Occult Blood NEGATIVE (NEGATIVE) 04/04/17 10:23 Urine Nitrite NEGATIVE (NEGATIVE) 04/04/17 10:23 Urine Bilirubin NEGATIVE (NEGATIVE) 04/04/17 10:23 Urine Urobilinogen 0.2 (NORMAL) E.U./dL (NORMAL) 04/04/17 10:23 Ur Leukocyte Esterase TRACE (NEGATIVE) H 04/04/17 10:23 Urine RBC None Seen /HPF (0-5) 04/04/17 10:23 Urine WBC 0-3 /HPF (0-5) 04/04/17 10:23 Ur Squamous Epith Cells NONE SEEN (<= Few) 04/04/17 10:23 Urine Bacteria None Seen /HPF (None Seen) 04/04/17 10:23 Ur Microscopic Review INDICATED 04/04/17 10:23 Urine Culture Comments INDICATED 04/04/17 10:23
[2017-04-05] MEDS: IBUPROFEN 600 MG TABLET PO PRN (17:10)
[2017-04-05 18:52] LABS: HCG UR QUAL NEGATIVE
[2017-04-05] MEDS: LACOSAMIDE 50 MG PO SCH (20:00)
[2017-04-06] MEDS: SODIUM CHLORIDE 0.9% 1,000 ML IV SCH (02:22)
[2017-04-06] MEDS: SODIUM CHLORIDE FLUSH 0.9% 10 ML SYRINGE IVP SCH ×2 (05:32→12:20)
[2017-04-06] MEDS: PANTOPRAZOLE 40 MG TABLET PO SCH (06:23)
[2017-04-06] MEDS: LEVETIRACETAM 750 MG PO SCH (06:23)
[2017-04-06 06:27] LABS: BASOPHILS % (AUTO) 0.2 %; EOSINOPHILS # (AUTO) 0.9 10^3/uL (0.0-0.7); EOSINOPHILS % (AUTO) 8.1 %; LYMPHOCYTES # (AUTO) 3.2 10^3/uL (1.5-3.5); LYMPHOCYTES % (AUTO) 27.6 %; MEAN CORPUSCULAR HEMOGLOBIN 26.4 pg (27.0-31.0); MEAN CORPUSCULAR HGB CONC 32.5 g/dL (32.0-36.0); MEAN CORPUSCULAR VOLUME 81.2 fL (81.0-99.0); MEAN PLATELET VOLUME 8.6 fL (7.9-10.8); MONOCYTES # (AUTO) 0.6 10^3/uL (0.0-1.0); MONOCYTES % (AUTO) 5.2 %; NEUTROPHILS # (AUTO) 6.7 10^3/uL (1.5-6.6); NEUTROPHILS % (AUTO) 58.9 %; RED BLOOD COUNT 4.55 10^6/uL (4.20-5.40); RED CELL DISTRIBUTION WIDTH 12.9 % (12.0-15.0); UNCORRECTED WHITE BLOOD COUNT 11.4 x10^3/uL; WHITE BLOOD COUNT 11.4 x10^3/uL (4.8-10.8)
[2017-04-06 06:39] LABS: ALBUMIN/GLOBULIN RATIO 0.8 (1.0-2.2); BILIRUBIN,TOTAL 0.9 mg/dL (0.2-1.0); CREATININE 0.6 mg/dL (0.4-1.0); MAGNESIUM 1.8 mg/dL (1.7-2.8); PHOSPHORUS 3.8 mg/dL (2.5-4.6); POTASSIUM 3.9 mmol/L (3.5-5.0); TOTAL PROTEIN 7.1 g/dL (6.7-8.2)
[2017-04-06] MEDS: LACOSAMIDE 50 MG PO SCH (07:21)
[2017-04-06] MEDS: ENOXAPARIN 40 MG/0.4 ML SYRINGE SUBQ SCH (08:00)
[2017-04-06] MEDS: POLYETHYLENE GLYCOL 3350 17 GM PACKET PO SCH (08:01)
[2017-04-06] MEDS ORDERED: LACTATED RINGERS 1,000 ML IV ONE ×3 (09:33→11:00)
[2017-04-06] MEDS ORDERED: PROPOFOL 200 MG/20 ML VIAL IVP ONE (09:40)
[2017-04-06] MEDS ORDERED: LIDOCAINE-MPF 2% 5 ML VIAL IM ONE (09:40)
[2017-04-06] MEDS ORDERED: MIDAZOLAM 2 MG/2 ML VIAL IVP ONE (09:40)
[2017-04-06] MEDS ORDERED: ROCURONIUM 50 MG/5 ML VIAL IVP ONE (09:40)
[2017-04-06] MEDS ORDERED: fentaNYL 100 MCG/2 ML VIAL IVP ONE (09:40)
[2017-04-06] MEDS ORDERED: NEOSTIGMINE 1 MG/1 ML 10 ML MDV IVP ONE (09:40)
[2017-04-06] MEDS ORDERED: ONDANSETRON 4 MG/2 ML VIAL IVP ONE (09:40)
[2017-04-06] MEDS ORDERED: ACETAMINOPHEN 1,000 MG/100 ML VIAL IV ONE (09:40)
[2017-04-06] MEDS ORDERED: GLYCOPYRROLATE 1 MG/5 ML VIAL IVP ONE (09:40)
[2017-04-06] MEDS ORDERED: SUCCINYLCHOLINE 200 MG/10 ML VIAL IVP ONE (09:40)
[2017-04-06] MEDS ORDERED: BUPIVACAINE 0.5%-EPI 1:200000 PF 30 ML VIAL SUBQ ONE ×2 (09:45→10:22)
--- NOTE | 2017-04-06 09:50 | PROVIDER PROGRESS NOTE ---
Hospitalist Cross-cover Note - Cross-Cover Note Cross-Cover Note: Patient feeling well this morning. Headache but no abdominal pain, no nausea or vomiting. Lipase and amylase now normal. LFTs improving. She is going for surgery at 9am this morning. Planned Lap Caryn. If no complication she will go home this evening. Patient NPO will be able to eat after surgery.
[2017-04-06] MEDS: fentaNYL 100 MCG/2 ML VIAL ONE ×2 (10:43→11:15)
[2017-04-06] MEDS ORDERED: MEPERIDINE 50 MG/ML SYRINGE ONE (10:43)
[2017-04-06] MEDS ORDERED: ACETAMINOPHEN/CODEINE 300 MG/30 MG TABLET PO PRN (10:54)
[2017-04-06] MEDS: IBUPROFEN 600 MG TABLET PO PRN (12:17)
--- NOTE | 2017-04-06 12:42 | Discharge Plan ---
Discharge Plan Disposition: 01 Home, Self Care Condition: Fair Prescriptions: Hydromorphone HCl [Dilaudid] 4 mg PO Q6H PRN #15 tablet PRN Reason: Pain Ibuprofen [Motrin] 600 mg PO Q6H #30 tablet Ondansetron [Zofran Odt] 8 mg PO Q8H PRN #20 tab.rapdis PRN Reason: Nausea / Vomiting Diet: Regular Activity Restrictions: Activity as Tolerated Shower Restrictions: No Driving Restrictions: No Weight Bearing: Full Weight Additional Instructions or Follow Up instructions: You presented with gallstone pancreatitis. You improved and had your gallbladder removed laproscopically. You may have pain after the surgery for which I have prescribed you medication. You may also have nausea for which I have also prescribed you medication. You want to take it easy for the next week. No heavy lifting over 20 lbs for the next week. No Smoking: If you smoke, Please STOP! Call for help.
[2017-04-06 13:21] VITALS: BP 142/81
[2017-04-06] MEDS ORDERED: IBUPROFEN 600 MG TABLET PO SCH (16:00)
[2017-04-06] MEDS ORDERED: LACOSAMIDE 50 MG PO SCH (19:00)
--- NOTE | 2017-04-07 02:02 | OPERATIVE REPORT ---
DATE OF SURGERY: 04/06/2017 00:00:00 PREOPERATIVE DIAGNOSIS: Gallstone pancreatitis. POSTOPERATIVE DIAGNOSIS: Gallstone pancreatitis. NAME OF PROCEDURE: Laparoscopic cholecystectomy. SURGEON: Rhina Kidd MD ANESTHESIOLOGIST: Rai Mckay CRNA INDICATIONS FOR PROCEDURE: This is a 21-year-old female who was admitted for gallstone pancreatitis and subsequently had resolution of her pancreatitis with normalization of her LFTs with a normal MRCP. She is now being taken to the operating room for laparoscopic cholecystectomy. FINDINGS: After obtaining informed consent from the patient, she was brought into the operating room and positioned on the operating table in the supine position, taking note of pressure points. She was intubated. SCD boots were applied. She was prepped and draped in the usual sterile fashion, and a time out was taken according to protocol. An infraumbilical 1 cm incision was created and deepened down toward the fascia. This was grasped and elevated, a Veress needle inserted, and the abdominal cavity insufflated. A 5 mm incision was created in the patient's epigastric region just to the right of the midline, and using the Optiview trocar, the site was entered. The Veress needle was removed and a 12 mm port placed at the umbilicus. Two additional 5 mm ports were placed along the right lateral abdominal wall. The gallbladder was grasped and retracted over the dome of the liver. It was noted to be somewhat distended. Filmy adhesions of the omentum to the liver were brought down with Bovie cautery. The base of the gallbladder was grasped and retracted medially, exposing the lateral attachments , and these were opened up, exposing the cystic duct. The cystic duct was circumferentially dissected from surrounding fatty tissue. The artery was similarly dissected out circumferentially and the critical view was obtained. The cystic duct was clipped with 2 clips placed proximally, 1 distally, and divided. The cystic artery was similarly clipped with 2 clips proximally, 1 clip distally and divided. The gallbladder was then transected off of the gallbladder fossa with electrocautery. There was some bleeding to the liver bed during this process. The liver was noted to be quite soft, as the patient is 1 month , and bled easily. The gallbladder was placed in a specimen bag and removed through the umbilical port after extending it slightly. The suction packer insulation was then utilized to inspect the liver bed and the gallbladder fossa. There were some areas of bleeding in the liver bed. This was controlled with electrocautery; however, there continued to be a very minimal amount of oozing, and Surgicel was placed in the gallbladder fossa. After adequate hemostasis was achieved and irrigation fluid removed, the umbilical port site was closed with a Chago-Nicola device using a figure-of- eight Vicryl suture. The liver bed was again inspected, and hemostasis again was noted to be achieved. The abdominal cavity was desufflated. The skin incisions were closed with 4-0 Monocryl. Then, 30 mL of local anesthetic was administered. Dermabond was applied. The patient was extubated and taken to recovery in stable condition. ESTIMATED BLOOD LOSS: 20 mL. FLUIDS RECEIVED: 900 mL of crystalloid. COMPLICATIONS: None. SPECIMENS: Gallbladder. JOB #: [id number] EXT JOB #:[id number] MTDNeeta
--- NOTE | 2017-04-07 08:12 | DISCHARGE SUMMARY ---
DATE OF ADMISSION: 04/04/2017 DATE OF DISCHARGE: 04/06/2017 PRIMARY CARE PHYSICIAN: None. DISCHARGING PHYSICIAN: Jamari Belcher MD DISCHARGE DIAGNOSES 1. Gallstone pancreatitis. 2. Cholelithiasis status post laparoscopic cholecystectomy. 3. Epilepsy. 4. Asthma. 5. Fatty liver. 6. Venous thromboembolism prophylaxis. DISCHARGE MEDICATIONS 1. Keppra 1500 mg p.o. q.a.m. and 2250 mg p.o. q.p.m. 2. Vimpat 150 mg p.o. b.i.d. 3. Zofran ODT 8 mg p.o. q.8h. p.r.n. for nausea or vomiting. 4. Motrin 600 mg p.o. q.6h. p.r.n. for pain. 5. Dilaudid 4 mg p.o. q.6h. p.r.n. for pain. HOSPITAL COURSE: The patient is a 21-year-old female with a past medical history significant for epil epsy and asthma, who presents to the emergency department with a chief complaint of abdominal pain. T he patient stated the pain had been ongoing for the past month. The patient was 1 month an d states that after her delivery she has been having off and on abdominal pain, which she described a s spasmy and stated that it would last for a few minutes to half an hour and then resolve. She stated that it would come on after she ate certain foods. She stated, however, the pain worsened over the l ast 2 days and she had more frequent episodes and then became nauseated and began vomiting. It was at the point that she decided to come in to the emergency department. On presentation to the emergency department, the patient had normal vital signs. Her pain had resolve d, but her lab work revealed an elevated bilirubin of 1.4 with elevated AST 295 and ALT of 154, alkal ine phosphatase 297, LDH 472, lipase 910 and amylase of 390. There was obvious concern for gallstone pancreatitis and possible common bile duct stone. Therefore, the patient underwent imaging study, thompson de oliveira with abdominal ultrasound, which revealed cholelithiasis without evidence of acute cholecystit is or biliary obstruction. The patient then underwent an MRCP, which revealed cholelithiasis without evidence of cholecystitis and normal diameter common bile duct. Given these findings, the patient was thought to likely have gallstone pancreatitis with a stone that had passed through, and she was admi tted to the hospital for gallstone pancreatitis. The patient's triglyceride level was within normal l imits. She stated that she is not a drinker. The patient was treated with IV fluids. She was kept n.p .o. and given as needed pain and nausea medication. The patient's enzymes improved over the next 48 h ours. As her lipase and amylase returned to normal range, her AST also returned to the normal range. ALT had improved and alkaline phosphatase had improved. Her total bilirubin also returned to normal r rod. The patient had a leukocytosis on presentation of 18.6, which improved to 11.4. As it appeared that her pancreas and liver had cooled off, she was taken to the OR for laparoscopic cholecystectomy. The patient had a successful laparoscopic cholecystectomy. Her gallbladder was edematous and did hav e stones, but was removed successfully. Postop, the patient did well. She was able to eat her lunch a nd she was slightly nauseated but able to tolerate the lunch. The patient was discharged home in stab le condition. She will need to follow up with her primary care physician. She was prescribed an antie metic and pain medication with a small prescription for Dilaudid as she was ALLERGIC TO OXYCODONE, an d she was also given Motrin. The patient is currently ; therefore, we will try to stay a way from the opioids. PHYSICAL EXAMINATION AT DISCHARGE VITAL SIGNS: Temperature 36.6, heart rate 60, blood pressure of 133/84, respiratory rate 18, O2 satur ation 98% on room air. GENERAL: The patient is alert and able to answer all my questions appropriately. She does not appear to be in any acute distress. HEENT: Pupils are equal and reactive to light. Extraocular muscles are intact. Mucous membranes are m oist. There is no conjunctival pallor or scleral icterus noted. NECK: Supple. No thyromegaly. No JVD. Trachea is midline. LYMPH NODES: There is no cervical or axillary lymphadenopathy noted. CARDIOVASCULAR: S1, S2 regular rate and rhythm. No murmurs, rubs, or gallops. LUNGS: Clear to auscultation bilaterally. No wheezes, rhonchi, or crackles. ABDOMEN:: Obese, soft and mildly tender in the area of the surgical incision. Otherwise, no guarding, no rebound, no peritoneal signs. Bowel sounds are present. EXTREMITIES: No lower extremity edema. Peripheral pulses are palpable. There is no cyanosis or clubbi ng. MUSCULOSKELETAL: The patient has good range of motion. No joint tenderness, no joint effusion. SKIN: No skin rash, lesions, cellulitis, or abscesses. NEUROLOGIC: The patient is alert and oriented x3. Cranial nerves 2-12 are grossly intact. Strength is grossly normal. Sensations are intact. LABORATORY: WBC is 11.4, hemoglobin 12.0, hematocrit 37.0, platelet count 324, sodium 139, potassium 3.9, chloride 104, carbon dioxide 22, BUN 10, creatinine 0.6, glucose 62, calcium 9.0, phosphorus 3.8 , magnesium 1.8, total bilirubin 0.9, AST 36, ALT 112, alkaline phosphatase 237, total protein 7.1, a lbumin 3.2, triglycerides 153, lipase 19, amylase 67. UA negative. IMAGING 1. Ultrasound of abdomen, impression: Cholelithiasis without evidence of acute cholecystitis or bilia ry obstruction, likely fatty infiltration of the liver. 2. MRCP, impression: Cholelithiasis without evidence of cholecystitis. Normal diameter common duct, n o (please verify states no cholelithiasis), minimal fatty infiltration of the liver. FOLLOWUP/RECOMMENDATIONS: The patient is being discharged to home with her and 1-month-old da ferozhter. She presented with pancreatitis thought to be secondary to gallstone pancreatitis. The patien t's pancreas and liver enzymes cooled off; therefore, she underwent a laparoscopic cholecystectomy. S he was discharged later on the day of the surgery as she was doing well, she was able to tolerate her lunch and needed to get home to take care of her daughter as her was being deployed the foll owing morning. The patient was discharged with an antiemetic as well as pain medication. The patient will follow up with her primary care physician as needed. She was also told to try to take it easy fo r the next week. She was told not to lift anything greater than 20 pounds and to drink plenty of flui d and get plenty of rest. Greater than 30 minutes were spent on discharge. JOB #: [id number] EXT JOB #:[id number]
== END 2017-04-06 13:45 | disposition home or self-care (01) | DRG 769 ==
LOC: ED 09:39 → MS 17:08
PROVIDERS: ADMIT Internal Medicine; ATTEND Internal Medicine
PROC: 0FT44ZZ Resection of Gallbladder, Percutaneous Endoscopic Approach (ICD-10-PCS; principal; 2017-04-06 08:00)
DX: O99.63 Diseases of the digestive system complicating the puerperium (principal); K85.10 Biliary acute pancreatitis without necrosis or infection; K80.20 Calculus of gallbladder without cholecystitis without obstruction; G40.909 Epilepsy, unspecified, not intractable, without status epilepticus; J45.909 Unspecified asthma, uncomplicated; K76.0 Fatty (change of) liver, not elsewhere classified
CPT/HCPCS: 36415; 74181; 76705; 80053; 80061; 81001; 81003; 81025; 82150; 82248; 83605; 83615; 83690; 83735; 84100; 85025; 87086; 88304; 96360; 99283; 99285

== ENCOUNTER 2018-01-08 17:32 | Emergency (ER) | payer OTHER ==
--- NOTE | 2018-01-08 18:50 | ED Physician Documentation ---
PD HPI LOWER EXT INJURY - Stated complaint Stated Complaint: R LEG INJ - Chief complaint Chief Complaint: Ext Problem - History obtained from History obtained from: Patient, Family - History of Present Illness PD HPI LOW EXT INJURY LOCATION: Right, Lower leg Type of injury: Fall (Down stairs) Where injury occurred: Home Timing - onset: How many days ago (4) Timing - duration: Days (4) Timing - details: Abrupt onset Pain level max: 6 Pain level now: 3 Improved by: Rest, Ice Worsened by: Palpating, Other (walking) Associated symptoms: Swelling, Discolored (ecchymosis). No: Weakness, Numbness , Tingling Contributing factors: No: Anticoagulated, Prior ortho surgery Similar symptoms before: Has not had sx before Recently seen: Not recently seen Review of Systems : denies: Now EGA Skin: denies: Rash Musculoskeletal: denies: Neck pain, Back pain PD PAST MEDICAL HISTORY - Past Medical History Cardiovascular: None Respiratory: Asthma Neuro: Seizure disorder GI: None - Past Surgical History Past Surgical History: No HEENT: Tonsil/Adenoidectomy - Present Medications Home Medications: Ambulatory Orders Medication Instructions Recorded Confirmed Lacosamide [Vimpat] 150 mg PO BID 04/04/17 04/04/17 levETIRAcetam [Keppra] 1,500 mg PO DAILY@0900 04/04/17 04/04/17 levETIRAcetam [Keppra] 2,250 mg PO QPM 04/04/17 04/04/17 Meloxicam [Mobic] 7.5 mg PO BID PRN #20 tablet 01/08/18 - Allergies Allergies/Adverse Reactions: Allergies Allergy/AdvReac Type Severity Reaction Status Date / Time latex Allergy Hives Verified 01/08/18 17:44 acetaminophen AdvReac Anaphylaxis Verified 01/08/18 17:44 diphenhydramine AdvReac Anaphylaxis Verified 01/08/18 17:44 oxycodone AdvReac Anaphylaxis Verified 01/08/18 17:44 tramadol AdvReac Anaphylaxis Verified 01/08/18 17:44 - Social History Does the pt smoke?: No Smoking Status: Never smoker Does the pt drink ETOH?: No - Immunizations Immunizations are current?: Yes - POLST Patient has POLST: No POLST Status: Full Code PD ED PE NORMAL - Vitals Vital signs reviewed: Yes - General General: Alert and oriented X 3, No acute distress - Derm Derm: Warm and dry - Extremities Extremities: No calf tenderness / cord, Other (R LE - mild ecchymosis and tenderness along the tibia. no calf tenderness. FROM of the knee, ankle and foot without pain. NVI) - Neuro Neuro: Alert and oriented X 3 Results - Vitals Vitals: Vital Signs - 24 hr 01/08/18 01/08/18 17:42 20:42 Temperature 37.3 C 36.4 C L Heart Rate 87 82 Respiratory 16 18 Rate Blood Pressure 146/82 H 142/75 H O2 Saturation 100 99 Oxygen O2 Source Room air - Rads (name of study) R tib/fib Radiology: Prelim report reviewed, EMP read contemporaneously, See rad report ( normal) PD MEDICAL DECISION MAKING - ED course Complexity details: reviewed results, re-evaluated patient, considered differential, d/w patient, d/w family ED course: Patient is a 22-year-old female who presents to the emergency department with a contusion of the right lower extremity, no acute findings on x-ray. Will place on crutches to help take some weight off of the area until the bruising heals. Compartments are soft. No evidence of DVT or infection. Patient counseled regarding signs and symptoms for which I believe and urgent re-evaluation would be necessary. Patient with good understanding of and agreement to plan and is comfortable going home at this time This document was made in part using voice recognition software. While efforts are made to proofread this document, sound alike and grammatical errors may occur. Departure - Departure Disposition: 01 Home, Self Care Clinical Impression: Contusion of tibia Condition: Good Instructions: ED Contusion Lower Ext Follow-Up: your,doctor in 1 week [Other] Prescriptions: Meloxicam [Mobic] 7.5 mg PO BID PRN #20 tablet PRN Reason: Pain Comments: Return if you worsen. Use the crutches as needed. Discharge Date/Time: 01/08/18 20:43
--- NOTE | 2018-01-08 19:56 | XRAY Report ---
EXAM: RIGHT TIBIA/FIBULA RADIOGRAPHY EXAM DATE: 01/08/2018 07:26 PM. CLINICAL HISTORY: Anterior pain since fall down stairs 5 days ago. COMPARISON: None. TECHNIQUE: 2 views. FINDINGS: Bones: Normal. No fracture or bone lesion. Joints: The visualized knee and ankle joints are normal. No effusions. Soft Tissues: Normal. No soft tissue swelling. IMPRESSION: Normal tibia/fibula radiography. [facility] Referring Provider Line: [phone] SITE ID: [id number]
[2018-01-08] MEDS ORDERED: MELOXICAM 7.5 MG TABLET PO STA (20:28)
[2018-01-08 20:43] VITALS: BP 142/75
== END 2018-01-08 20:43 | disposition home or self-care (01) ==
LOC: ED 17:32
DX: S80.11XA Contusion of right lower leg, initial encounter (principal); W10.9XXA Fall (on) (from) unspecified stairs and steps, initial encounter; Y92.009 Unspecified place in unspecified non-institutional (private) residence as the place of occurrence of the external cause; G40.909 Epilepsy, unspecified, not intractable, without status epilepticus; J45.909 Unspecified asthma, uncomplicated
CPT/HCPCS: 99283

== ENCOUNTER 2019-02-24 10:44 | Inpatient (IN) | payer OTHER ==
[2019-02-24 11:06] LABS: BILIRUBIN,URINE NEGATIVE (NEGATIVE); GLUCOSE, URINE (UA) NEGATIVE (NEGATIVE); KETONES,URINE (UA) NEGATIVE (NEGATIVE); LEUKOCYTE ESTERASE, URINE TRACE (NEGATIVE); NITRITE,URINE NEGATIVE (NEGATIVE); OCCULT BLOOD,URINE NEGATIVE (NEGATIVE); PH,URINE 7.5 PH (5.0-7.5); PROTEIN,URINE NEGATIVE (NEGATIVE); UROBILINOGEN,URINE 0.2 (NORMAL) E.U./dL (NORMAL)
[2019-02-24 11:10] LABS: CLARITY,URINE CLEAR (CLEAR); HCG UR QUAL NEGATIVE
[2019-02-24 11:21] LABS: BACTERIA,URINE Rare /HPF (None Seen); RBC,URINE 0-5 /HPF (0-5); SQUAMOUS EPITHELIAL CELL,UR FEW Squamous (<= Few)
[2019-02-24 11:22] LABS: BASOPHILS # (AUTO) 0.1 10^3/uL (0.0-0.1); BASOPHILS % (AUTO) 0.6 %; EOSINOPHILS # (AUTO) 0.5 10^3/uL (0.0-0.7); HGB - HEMOGLOBIN 14.4 g/dL (12.0-16.0); LYMPHOCYTES # (AUTO) 3.2 10^3/uL (1.5-3.5); LYMPHOCYTES % (AUTO) 24.3 %; MEAN CORPUSCULAR VOLUME 81.8 fL (81.0-99.0); MONOCYTES # (AUTO) 0.6 10^3/uL (0.0-1.0); MONOCYTES % (AUTO) 4.9 %; NEUTROPHILS # (AUTO) 8.6 10^3/uL (1.5-6.6); NEUTROPHILS % (AUTO) 66.2 %; PLT - PLATELET COUNT 282 10^3/uL (130-450); RED BLOOD COUNT 5.32 10^6/uL (4.20-5.40); RED CELL DISTRIBUTION WIDTH 12.4 % (12.0-15.0)
[2019-02-24 11:39] LABS: ALBUMIN/GLOBULIN RATIO 1.1 (1.0-2.2); BILIRUBIN,TOTAL 0.9 mg/dL (0.2-1.0); CALCIUM 9.9 mg/dL (8.5-10.3); CREATININE 0.6 mg/dL (0.4-1.0); TOTAL PROTEIN 7.8 g/dL (6.7-8.2)
--- NOTE | 2019-02-24 11:42 | ED Physician Documentation ---
PD HPI ABD PAIN - Stated complaint Stated Complaint: LOW ABD PX - Chief complaint Chief Complaint: Abd Pain - History obtained from History obtained from: Patient - History of Present Illness Timing - onset: How many days ago (2-3) Timing - duration: Days (2-3) Timing - details: Gradual onset, Still present Quality: Cramping, Aching, Pain Location: Periumbilical, RLQ Radiation: No: Right flank Improved by: No: Eating Worsened by: No: Eating Associated symptoms: Nausea. No: Fever, Diarrhea (but had loose stool initial day), Dysuria, Hematuria, Near syncope / syncope, Vaginal dc Similar symptoms before: Has not had sx before Review of Systems Constitutional: reports: Chills, Myalgias. denies: Fever Nose: reports: Congestion. denies: Rhinorrhea / runny nose Throat: denies: Sore throat Respiratory: denies: Cough GI: reports: Abdominal Pain, Nausea. denies: Abdominal Swelling, Vomiting, Constipation : reports: Irregular menses (on OCPs, with last period though about 2 months ago. Had been regular prior.). denies: Dysuria, Frequency, Discharge Musculoskeletal: denies: Neck pain, Back pain Neurologic: denies: Generalized weakness, Focal weakness, Numbness PD PAST MEDICAL HISTORY - Past Medical History Cardiovascular: None Respiratory: Asthma GI: None - Past Surgical History Past Surgical History: No HEENT: Tonsil/Adenoidectomy - Present Medications Home Medications: Ambulatory Orders Medication Instructions Recorded Confirmed Lacosamide [Vimpat] 150 mg PO BID 04/04/17 04/04/17 levETIRAcetam [Keppra] 1,500 mg PO DAILY@0900 04/04/17 04/04/17 levETIRAcetam [Keppra] 2,250 mg PO QPM 04/04/17 04/04/17 Meloxicam [Mobic] 7.5 mg PO BID PRN #20 tablet 01/08/18 - Allergies Allergies/Adverse Reactions: Allergies Allergy/AdvReac Type Severity Reaction Status Date / Time latex Allergy Hives Verified 02/24/19 10:47 acetaminophen AdvReac Anaphylaxis Verified 02/24/19 10:47 azithromycin AdvReac Unknown Verified 02/24/19 14:20 diphenhydramine AdvReac Anaphylaxis Verified 02/24/19 10:47 oxycodone AdvReac Anaphylaxis Verified 02/24/19 10:47 tramadol AdvReac Anaphylaxis Verified 02/24/19 10:47 - Social History Does the pt smoke?: No Smoking Status: Never smoker Does the pt drink ETOH?: No - Immunizations Immunizations are current?: Yes - POLST Patient has POLST: No POLST Status: Full Code PD ED PE NORMAL - Vitals Vital signs reviewed: Yes - General General: Alert and oriented X 3, No acute distress, Well developed/nourished - HEENT HEENT: Pharynx benign - Neck Neck: Supple, no meningeal sign, No adenopathy - Cardiac Cardiac: RRR, No murmur - Respiratory Respiratory: Clear bilaterally - Abdomen Abdomen: Soft, Non distended, No organomegaly, Other (She is tender slightly in the periumbilical area and predominantly in the right lower quadrant with some localized guarding. The rest of the abdomen is nontender. There is no percussion tenderness.) - Female Female : Sponge Hooker present, Other (There is moderate thin mucousy to white discharge with some redness and inflammation of the cervix and some endocervical discharge. She is tender on pelvic exam to the right.) - Back Back: No CVA TTP - Derm Derm: Normal color, Warm and dry - Extremities Extremities: No tenderness to palpate, Normal ROM s pain, No edema, No calf tenderness / cord Results - Vitals Vitals: Vital Signs - 24 hr 02/24/19 02/24/19 10:47 12:14 Temperature 36.6 C 37 C Heart Rate 101 H 78 Respiratory 18 16 Rate Blood Pressure 161/93 H 127/86 H O2 Saturation 99 100 Oxygen O2 Source Room air - Labs Labs: Microbiology 02/24/19 13:12 Wet Prep - Final Vaginal Laboratory Tests 02/24/19 02/24/19 02/24/19 10:58 11:16 11:16 WBC 13.0 H RBC 5.32 Hgb 14.4 Hct 43.5 MCV 81.8 MCH 27.0 MCHC 33.0 RDW 12.4 Plt Count 282 MPV 8.0 Neut # (Auto) 8.6 H Lymph # (Auto) 3.2 Dane # (Auto) 0.6 Eos # (Auto) 0.5 Baso # (Auto) 0.1 Absolute Nucleated RBC 0.00 Nucleated RBC % 0.0 Sodium 141 Potassium 4.2 Chloride 103 Carbon Dioxide 27 Anion Gap 11.0 BUN 9 Creatinine 0.6 Estimated GFR (MDRD) 124 Glucose 95 Calcium 9.9 Total Bilirubin 0.9 AST 27 ALT 37 Alkaline Phosphatase 107 Total Protein 7.8 Albumin 4.0 Globulin 3.8 Albumin/Globulin Ratio 1.1 Lipase 23 Urine Color YELLOW Urine Clarity CLEAR Urine pH 7.5 Ur Specific [place] 1.010 Urine Protein NEGATIVE Urine Glucose (UA) NEGATIVE Urine Ketones NEGATIVE Urine Occult Blood NEGATIVE Urine Nitrite NEGATIVE Urine Bilirubin NEGATIVE Urine Urobilinogen 0.2 (NORMAL) Ur Leukocyte Esterase TRACE H Urine RBC 0-5 Urine WBC 0-3 Ur Squamous Epith Cells FEW Squamous Urine Bacteria Rare Ur Microscopic Review INDICATED Urine Culture Comments INDICATED Urine HCG, Qual NEGATIVE - Rads (name of study) abd CT Radiology: Prelim report reviewed, Discussed with rads (Ovarian cystic structure measuring 2-3 cm. No free fluid is seen. The appendix is well-seen and normal. No other acute process.) PD MEDICAL DECISION MAKING - ED course Complexity details: considered differential (Concerning for urinary tract such as bladder infection or reproductive such as cyst. She is on oral contraceptives and has a normal test. Exam is most concerning for appendicitis given the location and increasing character of it with elevated white count. Opted for CT scan which showed a normal appendix but an ovarian cystic structure. Pelvic exam showed some evidence for pelvic infection concerning for chlamydia on exam. This would raise the concern for tubo-ovarian abscess rather than simple cyst. I will consult gynecology and see their recommendations.), d/w patient, d/w jewelry consultant (Discussed with Dr. Lyons who said it was suspicious for abscess rather than cyst and will put the patient in the hospital for antibiotics and further evaluation.) Departure - Departure Disposition: [facility] DC/Xfer Clinical Impression: Right lower quadrant abdominal pain, Right ovarian cyst, Pelvic infection in female, Tubo-ovarian abscess Condition: Stable Record reviewed to determine appropriate education?: Yes
[2019-02-24] MEDS ORDERED: ONDANSETRON 4 MG/2 ML VIAL IVP STA ×2 (12:12→14:13)
[2019-02-24] MEDS ORDERED: SODIUM CHLORIDE 0.9% 1,000 ML IV ONE (12:12)
[2019-02-24] MEDS ORDERED: MORPHINE 10 MG/ML VIAL IVP STA (12:12)
[2019-02-24] MEDS ORDERED: IOVERSOL 320 100 ML VIAL IVP ONE ×2 (12:23→13:42)
--- NOTE | 2019-02-24 12:56 | CT Report ---
Reason: RLQ pain for 1-2 days, increasing Procedure Date: 02/24/2019 Accession Number: [id number] / [id number] Procedure: CT - Abdomen/Pelvis W CPT Code: FULL RESULT: EXAM: CT ABDOMEN AND PELVIS EXAM DATE: 02/24/2019 12:39 PM. CLINICAL HISTORY: Right lower quadrant pain for 1-2 days, increasing. COMPARISONS: ABDOMEN LIMITED 04/04/2017 12:13 PM. TECHNIQUE: Routine helical CT imaging was performed through the abdomen and pelvis. IV contrast: Optiray 320 100 mL. Enteric contrast: No. Reconstructions: Coronal and sagittal. In accordance with CT protocol optimization, one or more of the following dose reduction techniques were utilized for this exam: automated exposure control, adjustment of mA and/or KV based on patient size, or use of iterative reconstructive technique. FINDINGS: Lung Bases: Unremarkable. Liver: Normal. No masses. Gallbladder/Bile Ducts: Status post cholecystectomy. Spleen: Normal. Pancreas: Normal. Adrenal Glands: Normal. Kidneys: Normal. No masses or hydronephrosis. Peritoneal Cavity/Bowel: Diverticulosis without diverticulitis. A few prominent mesenteric lymph nodes are seen predominantly in the right lower quadrant, none of which meet size criteria. No free fluid, free air or bowel obstruction. No masses or acute inflammatory process. The appendix is well visualized and normal. Pelvic Organs: The right ovary is located adjacent to the cecum and mildly prominent in size with a 2.4 x 1.3 x 1.4 cm central hypodensity which is not characterized (image 26 series 5, image 46 series 6, image 74 series 3). Vasculature: No aneurysms or other significant abnormality. Bones: No significant abnormality. Other: None. IMPRESSION: Normal appendix. Prominent lymph nodes in the right lower quadrant. Prominent right ovary in pericecal location as described. If clinically warranted, this can be characterized by pelvic ultrasound with transabdominal and transvaginal examination. [facility]
[2019-02-24] MEDS ORDERED: cefTRIAXone 1 GM VIAL IVP STA (13:16)
[2019-02-24] MEDS ORDERED: AZITHROMYCIN INJ 500 MG in SODIUM CHLORIDE 0.9% 250 ML IV STA (13:17)
[2019-02-24] MEDS ORDERED: metroNIDAZOLE 250 MG TABLET PO STA (13:58)
[2019-02-24] MEDS ORDERED: AZITHROMYCIN 250 MG TABLET PO STA (14:13)
[2019-02-24] MEDS ORDERED: metroNIDAZOLE 500 MG/100 ML 500 MG/100 ML BAG IV ONE (14:13)
[2019-02-24] MEDS: AMPICILLIN/SULBACTAM 3 GM in SODIUM CHLORIDE 0.9% MINIBAG 100 ML IV SCH (18:21)
[2019-02-24] MEDS ORDERED: SODIUM CHLORIDE FLUSH 0.9% 10 ML SYRINGE ONE (18:21)
[2019-02-24] MEDS: LACTATED RINGERS 1,000 ML IV SCH (18:21)
[2019-02-24] MEDS: KETOROLAC 30 MG/ML VIAL IVP SCH (18:28)
[2019-02-24] MEDS ORDERED: LACOSAMIDE 150 MG PO SCH (21:00)
[2019-02-24] MEDS ORDERED: levETIRAcetam 250 MG TABLET PO SCH (21:00)
[2019-02-24] MEDS: DOCUSATE SODIUM 100 MG CAPSULE PO SCH (21:08)
[2019-02-24] MEDS: DOXYCYCLINE 100 MG TABLET PO SCH (21:08)
[2019-02-24] MEDS: ONDANSETRON ODT 4 MG TABLET TL PRN (22:08)
[2019-02-24] MEDS: HYDROmorphone 0.5 MG/0.5 ML SYRINGE IVP PRN (22:08)
[2019-02-25] MEDS: KETOROLAC 30 MG/ML VIAL IVP SCH ×5 (00:09→23:55)
[2019-02-25] MEDS: AMPICILLIN/SULBACTAM 3 GM in SODIUM CHLORIDE 0.9% MINIBAG 100 ML IV SCH ×4 (00:16→17:49)
[2019-02-25 05:59] LABS: BASOPHILS # (AUTO) 0.1 10^3/uL (0.0-0.1); BASOPHILS % (AUTO) 0.6 %; EOSINOPHILS # (AUTO) 0.5 10^3/uL (0.0-0.7); EOSINOPHILS % (AUTO) 4.1 %; HGB - HEMOGLOBIN 12.3 g/dL (12.0-16.0); LYMPHOCYTES # (AUTO) 3.4 10^3/uL (1.5-3.5); LYMPHOCYTES % (AUTO) 29.1 %; MEAN CORPUSCULAR HEMOGLOBIN 27.3 pg (27.0-31.0); MEAN CORPUSCULAR HGB CONC 32.7 g/dL (32.0-36.0); MEAN CORPUSCULAR VOLUME 83.3 fL (81.0-99.0); MEAN PLATELET VOLUME 8.3 fL (7.9-10.8); MONOCYTES # (AUTO) 0.9 10^3/uL (0.0-1.0); MONOCYTES % (AUTO) 7.4 %; NEUTROPHILS # (AUTO) 6.9 10^3/uL (1.5-6.6); NEUTROPHILS % (AUTO) 58.8 %; PLT - PLATELET COUNT 255 10^3/uL (130-450); RED BLOOD COUNT 4.52 10^6/uL (4.20-5.40); RED CELL DISTRIBUTION WIDTH 12.6 % (12.0-15.0); WHITE BLOOD COUNT 11.7 x10^3/uL (4.8-10.8)
[2019-02-25] MEDS: ONDANSETRON ODT 4 MG TABLET TL PRN (06:09)
[2019-02-25] MEDS: levETIRAcetam 250 MG TABLET PO SCH ×2 (06:47→19:00)
[2019-02-25] MEDS: LACOSAMIDE 150 MG PO SCH ×2 (06:49→19:01)
[2019-02-25] MEDS: DOCUSATE SODIUM 100 MG CAPSULE PO SCH ×2 (08:09→20:36)
[2019-02-25] MEDS: DOXYCYCLINE 100 MG TABLET PO SCH ×2 (08:09→20:42)
--- NOTE | 2019-02-25 08:42 | PREOP HISTORY & PHYSICAL ---
DATE OF SERVICE: 02/24/2019 Physician: Zaki Galan MD IDENTIFICATION: A 23-year-old G1, P1, female whose last menstrual period was 12/19/2018. She states she spotted in January. She is currently using control pills for contraception. CHIEF COMPLAINT: Right lower quadrant pain. HISTORY OF PRESENT ILLNESS: Patient states roughly 36 hours ago she developed onset of right lower quadrant pain, which started at belly button and worsened with time. It is progressively gone down to the right lower quadrant. She has developed nausea without vomiting or diarrhea. She states that she has never had a prior episode like this in the past. She is currently sexually active at this time. She denies any history of STIs. PAST MEDICAL HISTORY: Positive for seizures, last seizure was roughly 1 year ago. PAST SURGICAL HISTORY: Tonsils and adenoidectomy, as well as laparoscopic cholecystectomy. CURRENT MEDICATIONS 1. Keppra 1500 mg in the morning and 2400 mg in the evening. 2. She is currently taking Vimpat 150 mg p.o. b.i.d. 3. Mobic 7.5 mg p.o. b.i.d. p.r.n. pain. ALLERGIES: LATEX, ACETAMINOPHEN, AZITHROMYCIN, DIPHENHYDRAMINE, CODEINE, TRAMADOL. HABITS: The patient denies use of alcohol, tobacco, street or addictive drugs. Does use topical THC for back pain. SOCIAL HISTORY: The patient is and lives with spouse and a [id number] mom. FAMILY HISTORY: Positive for mother with ovarian cancer, breast cancer, melanoma, migraine headaches and hypertension. REVIEW OF SYSTEMS: Negative with the exception of decreased smell, as well as glasses. PHYSICAL EXAMINATION GENERAL: Well-developed, well-nourished female. She is obese in nature. VITAL SIGNS: Showed a temperature of 37. Heart rate is 78, respirations 16, blood pressure 127/68, O2 saturation 100% on room air. HEENT: Pupils are equal, round. Extraocular muscles intact. Thyroid is not palpably enlarged. HEART: Regular rate and rhythm without murmurs. LUNGS: Lung mckeon are clear without rales or wheezes. BACK: Shows some right-sided tenderness. ABDOMEN: Shows good bowel sounds. The scars are those of a previous laparoscopic cholecystectomy. The patient's pain is more right side to the umbilicus. There does not appear to be any rebound at this time. PELVIC: pruelent discharge. right adnexa tender, duplicates pain. (done by Dr Blair in ED) CT shows a normal appendix; however, the right tube is edematous, as well as evidence of a 3.3 cm fluid collection around the right ovary. This is directly connected to the ovary and this is up out of the pelvis. LABORATORIES: White count is 13.0, hemoglobin 14.4, hematocrit 43.5, platelets 282. Her electrolytes all appear to be within normal limits. Wet mount showed evidence of clue cells. IMPRESSION: A 23-year-old G1, P1 female with recent onset right lower quadrant pain. CT would appear to rule out an appendicitis. There appears to be a tubo- ovarian abscess. PLAN: At this point, we will start her on IV antibiotics, which includes those of Unasyn 3 grams every 6 hours, as well as Doxycycline 100 mg every 12 hours. We will reevaluate the patient in the morning with CBC. TD: 02/24/2019 17:45 PHILIP
[2019-02-25] MEDS: LACTATED RINGERS 1,000 ML IV SCH ×2 (09:01→20:42)
--- NOTE | 2019-02-25 09:43 | PROVIDER PROGRESS NOTE ---
Subjective - Prog Note Date Prog Note Date: 02/25/19 Prog Note Time: 09:41 - Subjective Pt reports feeling: Improved (Pt appeasr improved. normal BM this AM. ate 60% breakfast. sitting in chair. moves easly) Objective - Vital Signs/Intake & Output Reviewed Vital Signs: Yes Vital Signs: Vital Signs x48h Temp Pulse Resp BP Pulse Ox 02/25/19 07:50 37.0 C 87 16 119/67 99 02/25/19 06:00 36.7 C 83 17 113/67 97 Intake & Output: Intake & Output 02/22/19 02/23/19 02/24/19 02/25/19 23:59 23:59 23:59 23:59 Intake Total 1914 Balance 1914 - Objective General Appearance: positive: No acute distress, Alert Respiratory: positive: Chest non-tender, No respiratory distress, Breath sounds nml Cardiovascular: positive: Regular rate & rhythm, No murmur, No gallop Abdomen: positive: Tenderness (right mid abdomin. no rebound. pain more localized 1/3) Back: negative: CVA tenderness (R), CVA tenderness (L) Skin: positive: Color nml, No rash, Warm Extremities: negative: Calf tenderness, Kuldip's sign/cords - Lab Results Fish Bones: 02/25/19 05:30 02/24/19 11:16 Other Labs: Lab Results x24hrs 02/25/19 02/24/19 02/24/19 Range/Units 05:30 11:16 11:16 WBC 11.7 H 13.0 H (4.8-10.8) x10^3/uL RBC 4.52 5.32 (4.20-5.40) 10^6/uL Hgb 12.3 14.4 (12.0-16.0) g/dL Hct 37.6 43.5 (37.0-47.0) % MCV 83.3 81.8 (81.0-99.0) fL MCH 27.3 27.0 (27.0-31.0) pg MCHC 32.7 33.0 (32.0-36.0) g/dL RDW 12.6 12.4 (12.0-15.0) % Plt Count 255 282 (130-450) 10^3/uL MPV 8.3 8.0 (7.9-10.8) fL Neut # (Auto) 6.9 H 8.6 H (1.5-6.6) 10^3/uL Lymph # (Auto) 3.4 3.2 (1.5-3.5) 10^3/uL Mcpherson # (Auto) 0.9 0.6 (0.0-1.0) 10^3/uL Eos # (Auto) 0.5 0.5 (0.0-0.7) 10^3/uL Baso # (Auto) 0.1 0.1 (0.0-0.1) 10^3/uL Absolute Nucleated RBC 0.01 0.00 x10^3/uL Nucleated RBC % 0.0 0.0 /100WBC Sodium 141 (135-145) mmol/L Potassium 4.2 (3.5-5.0) mmol/L Chloride 103 (101-111) mmol/L Carbon Dioxide 27 (21-32) mmol/L Anion Gap 11.0 (6-13) BUN 9 (6-20) mg/dL Creatinine 0.6 (0.4-1.0) mg/dL Estimated GFR (MDRD) 124 (>89) Glucose 95 (70-100) mg/dL Calcium 9.9 (8.5-10.3) mg/dL Total Bilirubin 0.9 (0.2-1.0) mg/dL AST 27 (10-42) IU/L ALT 37 (10-60) IU/L Alkaline Phosphatase 107 (42-121) IU/L Total Protein 7.8 (6.7-8.2) g/dL Albumin 4.0 (3.2-5.5) g/dL Globulin 3.8 (2.1-4.2) g/dL Albumin/Globulin Ratio 1.1 (1.0-2.2) Lipase 23 (22-51) U/L Urine Color Urine Clarity (CLEAR) Urine pH (5.0-7.5) PH Ur Specific [place] (1.002-1.030) Urine Protein (NEGATIVE) mg/dL Urine Glucose (UA) (NEGATIVE) mg/dL Urine Ketones (NEGATIVE) mg/dL Urine Occult Blood (NEGATIVE) Urine Nitrite (NEGATIVE) Urine Bilirubin (NEGATIVE) Urine Urobilinogen (NORMAL) E.U./dL Ur Leukocyte Esterase (NEGATIVE) Urine RBC (0-5) /HPF Urine WBC (0-5) /HPF Ur Squamous Epith Cells (<= Few) Urine Bacteria (None Seen) /HPF Ur Microscopic Review Urine Culture Comments Urine HCG, Qual 02/24/19 Range/Units 10:58 WBC (4.8-10.8) x10^3/uL RBC (4.20-5.40) 10^6/uL Hgb (12.0-16.0) g/dL Hct (37.0-47.0) % MCV (81.0-99.0) fL MCH (27.0-31.0) pg MCHC (32.0-36.0) g/dL RDW (12.0-15.0) % Plt Count (130-450) 10^3/uL MPV (7.9-10.8) fL Neut # (Auto) (1.5-6.6) 10^3/uL Lymph # (Auto) (1.5-3.5) 10^3/uL Mcpherson # (Auto) (0.0-1.0) 10^3/uL Eos # (Auto) (0.0-0.7) 10^3/uL Baso # (Auto) (0.0-0.1) 10^3/uL Absolute Nucleated RBC x10^3/uL Nucleated RBC % /100WBC Sodium (135-145) mmol/L Potassium (3.5-5.0) mmol/L Chloride (101-111) mmol/L Carbon Dioxide (21-32) mmol/L Anion Gap (6-13) BUN (6-20) mg/dL Creatinine (0.4-1.0) mg/dL Estimated GFR (MDRD) (>89) Glucose (70-100) mg/dL Calcium (8.5-10.3) mg/dL Total Bilirubin (0.2-1.0) mg/dL AST (10-42) IU/L ALT (10-60) IU/L Alkaline Phosphatase (42-121) IU/L Total Protein (6.7-8.2) g/dL Albumin (3.2-5.5) g/dL Globulin (2.1-4.2) g/dL Albumin/Globulin Ratio (1.0-2.2) Lipase (22-51) U/L Urine Color YELLOW Urine Clarity CLEAR (CLEAR) Urine pH 7.5 (5.0-7.5) PH Ur Specific [place] 1.010 (1.002-1.030) Urine Protein NEGATIVE (NEGATIVE) mg/dL Urine Glucose (UA) NEGATIVE (NEGATIVE) mg/dL Urine Ketones NEGATIVE (NEGATIVE) mg/dL Urine Occult Blood NEGATIVE (NEGATIVE) Urine Nitrite NEGATIVE (NEGATIVE) Urine Bilirubin NEGATIVE (NEGATIVE) Urine Urobilinogen 0.2 (NORMAL) (NORMAL) E.U./dL Ur Leukocyte Esterase TRACE H (NEGATIVE) Urine RBC 0-5 (0-5) /HPF Urine WBC 0-3 (0-5) /HPF Ur Squamous Epith Cells FEW Squamous (<= Few) Urine Bacteria Rare (None Seen) /HPF Ur Microscopic Review INDICATED Urine Culture Comments INDICATED Urine HCG, Qual NEGATIVE - Diagnostic Imaging Diagnostic Imaging Results: positive: Final report reviewed Assessment/Plan - Problem List (1) Tubo-ovarian abscess Impression: Pt showing slow progress. order TVUS continue antibiotics. (2) Seizure disorder Impression: No current activity consult with IM.
--- NOTE | 2019-02-25 11:45 | Ultrasound Report ---
Reason: right tuboovarian abcess Procedure Date: 02/25/2019 Accession Number: [id number] / [id number] Procedure: US - Pelvic Complete CPT Code: FULL RESULT: EXAM: PELVIC ULTRASOUND EXAM DATE: 02/25/2019 10:55 AM. CLINICAL HISTORY: Right tuboovarian abscess. COMPARISON: ABDOMEN/PELVIS W/ 02/24/2019 12:29 PM. TECHNIQUE: Realtime transabdominal pelvic scan performed to identify the uterus and adnexa and as an overview of other pelvic structures, with static image documentation. FINDINGS: Uterus: 8.9 x 3.1 x 5.1 cm, volume 74 cc. Anteverted position. Normal overall size and echotexture. Masses: None. Endometrium: 4 mm. Normal. Cervix: Unremarkable. Right Ovary: 2.3 x 2.2 x 2.8 cm, volume 11.1 cc. Limited transabdominal evaluation demonstrates a 2.2 x 1.7 x 1.5 cm hypoechoic/cystic structure which is not further characterized. No tubular fluid-filled structure is seen. Left Ovary: 1.9 x 2.0 x 2.3 cm, volume 4.6 cc. Normal echotexture and blood flow. Free Fluid: None. Other: None. IMPRESSION: Cystic structure within the right adnexa, compatible with previously noted CT appearance. No tubular dilated structure is identified transabdominally and no free pelvic fluid is seen transabdominally. Further characterization by transvaginal ultrasound is possible if clinically warranted. [facility]
[2019-02-25] MEDS ORDERED: EPINEPHrine 1 MG/ML AMP IM STA (12:11)
[2019-02-25] MEDS ORDERED: EPINEPHrine 1 MG/ML AMP IM PRN (12:48)
[2019-02-25] MEDS: HYDROmorphone 0.5 MG/0.5 ML SYRINGE IVP PRN ×3 (16:20→23:47)
[2019-02-25] MEDS ORDERED: SODIUM CHLORIDE FLUSH 0.9% 10 ML SYRINGE ONE ×2 (16:24→21:48)
--- NOTE | 2019-02-25 19:16 | CONSULTATION NOTE ---
Referring Provider Name of Referring Provider:: Dr. Galan Consult Date: 02/25/19 Chief Complaint - Chief Complaint Chief Complaint: RLQ abdominal pain History of Present Illness - Admitted From Admitted From:: ED - History Obtained From Records Reviewed: yes History obtained from: chart review, patient Exam Limitations: none - History of Present Illness HPI Comment/Other: Ramona Garcia is an obese 23-year old female with a past medical history of epilepsy, seizures, 1, para 1, fatty liver, history of pancreatitis, status post cholecystectomy, asthma, suspected obstructive sleep apnea with daytime sleepiness, and witnessed apnea per patient by her . She arrived in our ED with a primary complaint of RLQ abdominal pain that had started 2-3 days prior. She denies dysuria, fever, chills, but stated that her appetite had been poor with also having trouble sleeping. She is on oral contraceptives and has a negative urine HCG test. An abdominal/pelvis CT scan showed a normal appendix, but a right ovarian cystic structure with inflammation to surrounding lymph nodes. WATCH REPAIR TECHNICIAN, Dr. Galan was consulted and accepted patient for concerns about a tubo-ovarian abscess/cyst. On day 2 of her stay, a Hospitalist consult was made given her history of epilepsy and multiple allergies and thank you for that. On my exam the patient states that her pain has not improved since arriving in the ED and it is described as in her RLQ, worse with deep palpation, sharp, throbbing, burning and constant. She has been intermittently nauseated and ear lier today had a mild anaphylaxis reaction (throat swelling, physical uni- lateral neck swelling, hoarse voice and mild shortness of breath) when attempting to eat her lunch. Epi IM 0.3 was given, which nearly resolved this. It is thought that with her apple and grape allergy, her food may have been the culprit (cross contamination). She also expressed that she is not against having surgery to just "get this over with". She will be medically managed by the Hospitalist team. History - Past Medical History Cardiovascular: reports: Hypertension, Murmur Respiratory: reports: Asthma, Sleep apnea (suspected, undiagnosed) Neuro: reports: Headaches, Seizure disorder, Other (Epilepsy) Endocrine/Autoimmune: reports: None GI: reports: GERD, Cholelithiasis RECYCLING OPERATOR: reports: Ovarian cysts : reports: None Psych: reports: Anxiety Musculoskeletal: reports: None Derm: reports: None MRSA Hx?: No - Past Surgical History General: reports: Cholecystectomy HEENT: reports: Tonsil/Adenoidectomy - Family & Social History Family History: Mother: Alive and Well, Cancer, Obesity Family History Comment/Other: Mother with a history of ovarian cancer at a young age of ~25 years Living arrangement: At home Living Situation: With spouse/s.o. Social History Notes: Patient is originally from [place] and moved to [place] with her who is in the [place]. She had a baby girl one month ago. Her is going to be deployed for a month starting on Saturday and the patient needs to get home by then to take care of her daughter. - Substance History Use: Uses substance without health or social issues: NONE Abuse: Recurrent use of substance despite neg consequences: NONE Dependence: Experiences withdrawal or developed tolerances: NONE - POLST Patient has POLST: No POLST Status: Full Code Meds/Allgy - Home Medications Home Medications: Ambulatory Orders Medication Instructions Recorded Confirmed Lacosamide [Vimpat] 150 mg PO DAILY 04/04/17 02/24/19 levETIRAcetam [Keppra] 1,500 mg PO DAILY 04/04/17 02/24/19 levETIRAcetam [Keppra] 2,250 mg PO QPM 04/04/17 02/24/19 Lacosamide [Vimpat] 300 mg PO QPM 02/24/19 02/24/19 Norgestimate-Ethinyl Estradiol 1 tab PO DAILY 02/24/19 02/24/19 [Ortho Tri-Cyclen 28 Tablet] - Allergies Allergies/Adverse Reactions: Allergies Allergy/AdvReac Type Severity Reaction Status Date / Time apple Allergy Severe Anaphylaxis Verified 02/26/19 07:18 melon Allergy Severe Anaphylaxis Verified 02/26/19 07:18 latex Allergy Hives Verified 02/24/19 10:47 grape AdvReac Severe Anaphylaxis Verified 02/24/19 18:49 acetaminophen AdvReac Anaphylaxis Verified 02/24/19 14:57 azithromycin AdvReac See Note Verified 02/24/19 14:57 diphenhydramine AdvReac Anaphylaxis Verified 02/24/19 10:47 oxycodone AdvReac Anaphylaxis Verified 02/24/19 10:47 tramadol AdvReac Anaphylaxis Verified 02/24/19 10:47 Review of Systems - Constitutional Constitutional: reports: Weakness, Poor appetite - Eyes Eyes: reports: Corrective lenses - Ears, Nose & Throat Ears, Nose & Throat: reports: Nasal congestion, Postnasal drainage - Cardiovascular Cariovascular: reports: Edema (chronic BLE), Orthopnea - Respiratory Respiratory: reports: Orthopnea - Gastrointestinal Gastrointestinal: reports: Nausea, Reflux/heartburn - Integumentary Integumentary: reports: Dryness - Neurological Neurological: reports: General weakness, Headache, Pre-existing deficit, Seizures - Endocrine Endocrine: reports: Intolerance to cold - All Other Systems All Other Systems: reports: Reviewed and negative Exam - Vital Signs Reviewed Vital Signs: Yes Vital Signs: Vital Signs x48h Temp Pulse Resp BP Pulse Ox 02/25/19 15:56 37 C 95 16 128/66 100 02/25/19 12:41 80 18 133/74 H 100 02/25/19 12:32 36.6 C 111 H 20 136/82 H 99 02/25/19 11:51 36.9 C 85 16 119/70 99 - Physical Exam General Appearance: positive: Alert, Moderate distress Eyes Bilateral: positive: PERRL ENT: positive: Pharyngeal erythema, Dry mucous membranes Neck: positive: Thyroid nml, No JVD, Other (large neck) Respiratory: positive: Chest non-tender, No respiratory distress, Breath sounds nml Cardiovascular: positive: Regular rate & rhythm, No gallop Peripheral Pulses: positive: 2+ Abdomen: positive: Nml bowel sounds, Tenderness, Guarding, Other (obese, soft, tenderness to RLQ) Back: positive: Nml inspection Skin: positive: Color nml, No rash, Warm, Dry Extremities: positive: Non-tender, Full ROM, Nml appearance, No pedal edema Neurologic/Psychiatric: positive: Oriented x3, CN's nml (2-12), Motor nml, Sensation nml, Mood/affect nml, Weakness Reflexes: Bicep (R): 3+, Bicep (L): 3+ Conclusion/Plan - Diagnosis Diagnosis: Epilepsy. Right ovarian cyst. Leukocytosis. Abdominal pain. Dysmenoreha. Pre-op Exam - Plan Plan: - Manage symptoms - Check TSH - Monitor labs - Adjust pain meds/anti-emetics - Update primary team as needed * A revised cardiac risk index for pre-operative risk is calculated at very low risk, class I. - Lab Results Lab results reviewed: Yes Fish Bones: 02/26/19 06:06 02/26/19 06:06 - Diagnostic Imaging Results Diagnostic Imaging Results: positive: Prelim report reviewed
[2019-02-25] MEDS ORDERED: SODIUM CHLORIDE 0.65% NASAL SPRAY NAS PRN (19:38)
[2019-02-25] MEDS: OXYMETAZOLINE NASAL SPRAY NAS SCH (21:34)
[2019-02-26] MEDS: AMPICILLIN/SULBACTAM 3 GM in SODIUM CHLORIDE 0.9% MINIBAG 100 ML IV SCH ×4 (00:02→19:59)
[2019-02-26] MEDS: HYDROmorphone 0.5 MG/0.5 ML SYRINGE IVP PRN ×3 (01:46→08:39)
[2019-02-26] MEDS: ONDANSETRON ODT 4 MG TABLET TL PRN (01:51)
[2019-02-26] MEDS: KETOROLAC 30 MG/ML VIAL IVP SCH ×2 (05:37→12:23)
[2019-02-26 06:12] LABS: BASOPHILS % (AUTO) 0.2 %; EOSINOPHILS # (AUTO) 0.5 10^3/uL (0.0-0.7); EOSINOPHILS % (AUTO) 3.1 %; HGB - HEMOGLOBIN 12.4 g/dL (12.0-16.0); LYMPHOCYTES # (AUTO) 3.4 10^3/uL (1.5-3.5); MEAN CORPUSCULAR HEMOGLOBIN 27.3 pg (27.0-31.0); MEAN CORPUSCULAR HGB CONC 32.3 g/dL (32.0-36.0); MEAN CORPUSCULAR VOLUME 84.3 fL (81.0-99.0); MEAN PLATELET VOLUME 8.5 fL (7.9-10.8); MONOCYTES # (AUTO) 0.8 10^3/uL (0.0-1.0); MONOCYTES % (AUTO) 5.5 %; NEUTROPHILS % (AUTO) 68.2 %; PLT - PLATELET COUNT 272 10^3/uL (130-450); RED BLOOD COUNT 4.53 10^6/uL (4.20-5.40); RED CELL DISTRIBUTION WIDTH 12.4 % (12.0-15.0); WHITE BLOOD COUNT 14.7 x10^3/uL (4.8-10.8)
[2019-02-26 06:26] LABS: ALBUMIN 3.4 g/dL (3.2-5.5); BILIRUBIN,TOTAL 0.6 mg/dL (0.2-1.0); CREATININE 0.5 mg/dL (0.4-1.0); TOTAL PROTEIN 6.8 g/dL (6.7-8.2)
[2019-02-26] MEDS: LACOSAMIDE 150 MG PO SCH ×2 (06:40→19:02)
[2019-02-26] MEDS: levETIRAcetam 250 MG TABLET PO SCH ×2 (06:40→19:02)
[2019-02-26] MEDS ORDERED: ONDANSETRON 4 MG/2 ML VIAL IVP PRN (07:09)
[2019-02-26] MEDS ORDERED: levETIRAcetam INJ 1,500 MG in SODIUM CHLORIDE 0.9% 100ML 100 ML IV SCH (08:00)
[2019-02-26] MEDS: DOXYCYCLINE 100 MG TABLET PO SCH ×2 (08:39→20:00)
--- NOTE | 2019-02-26 09:14 | PROVIDER PROGRESS NOTE ---
Subjective - Prog Note Date Prog Note Date: 02/26/19 Prog Note Time: 09:11 - Subjective Pt reports feeling: Worse (Pt develpoed N with V last PM. feeling worse. Thru up her Kepra. Wants surgery.) Objective - Vital Signs/Intake & Output Reviewed Vital Signs: Yes Vital Signs: Vital Signs x48h Temp Pulse Resp BP Pulse Ox 02/26/19 07:50 36.8 C 104 H 16 133/73 H 99 02/26/19 05:58 36.6 C 94 18 132/75 H 100 Intake & Output: Intake & Output 02/23/19 02/24/19 02/25/19 02/26/19 23:59 23:59 23:59 23:59 Intake Total 1914 5926.25 851.25 Output Total 300 Balance 1914 5926.25 551.25 - Objective General Appearance: positive: Mild distress (Pain 8/10 with out meds, 2/10 now) Respiratory: positive: Chest non-tender, No respiratory distress, Breath sounds nml Cardiovascular: positive: Regular rate & rhythm, No murmur, No gallop Abdomen: positive: Nml bowel sounds, Tenderness (right side of the abdomin.) Skin: positive: Color nml, No rash, Warm, Dry Extremities: negative: Calf tenderness - Lab Results Fish Bones: 02/26/19 06:06 02/26/19 06:06 Other Labs: Lab Results x24hrs 02/26/19 02/26/19 02/26/19 Range/Units 06:06 06:06 06:06 WBC 14.7 H (4.8-10.8) x10^3/uL RBC 4.53 (4.20-5.40) 10^6/uL Hgb 12.4 (12.0-16.0) g/dL Hct 38.2 (37.0-47.0) % MCV 84.3 (81.0-99.0) fL MCH 27.3 (27.0-31.0) pg MCHC 32.3 (32.0-36.0) g/dL RDW 12.4 (12.0-15.0) % Plt Count 272 (130-450) 10^3/uL MPV 8.5 (7.9-10.8) fL Neut # (Auto) 10.0 H (1.5-6.6) 10^3/uL Lymph # (Auto) 3.4 (1.5-3.5) 10^3/uL [place] # (Auto) 0.8 (0.0-1.0) 10^3/uL Eos # (Auto) 0.5 (0.0-0.7) 10^3/uL Baso # (Auto) 0.0 (0.0-0.1) 10^3/uL Absolute Nucleated RBC 0.00 x10^3/uL Nucleated RBC % 0.0 /100WBC Sodium 139 (135-145) mmol/L Potassium 4.0 (3.5-5.0) mmol/L Chloride 102 (101-111) mmol/L Carbon Dioxide 28 (21-32) mmol/L Anion Gap 9.0 (6-13) BUN 10 (6-20) mg/dL Creatinine 0.5 (0.4-1.0) mg/dL Estimated GFR (MDRD) 153 (>89) Glucose 109 H (70-100) mg/dL Calcium 9.0 (8.5-10.3) mg/dL Total Bilirubin 0.6 (0.2-1.0) mg/dL AST 27 (10-42) IU/L ALT 36 (10-60) IU/L Alkaline Phosphatase 81 (42-121) IU/L Total Protein 6.8 (6.7-8.2) g/dL Albumin 3.4 (3.2-5.5) g/dL Globulin 3.4 (2.1-4.2) g/dL Albumin/Globulin Ratio 1.0 (1.0-2.2) TSH 18.98 H (0.34-5.60) uIU/mL Free T4 (0.58-1.64) ng/dL Free T3 pg/mL (2.5-3.9) pg/mL C.trachomatis RNA (TMA) (NOT DETECTED) Chlamydia/GC Comment N.gonorrhoeae RNA (TMA) (NOT DETECTED) 02/26/19 02/26/19 02/24/19 Range/Units 05:00 05:00 13:12 WBC (4.8-10.8) x10^3/uL RBC (4.20-5.40) 10^6/uL Hgb (12.0-16.0) g/dL Hct (37.0-47.0) % MCV (81.0-99.0) fL MCH (27.0-31.0) pg MCHC (32.0-36.0) g/dL RDW (12.0-15.0) % Plt Count (130-450) 10^3/uL MPV (7.9-10.8) fL Neut # (Auto) (1.5-6.6) 10^3/uL Lymph # (Auto) (1.5-3.5) 10^3/uL [place] # (Auto) (0.0-1.0) 10^3/uL Eos # (Auto) (0.0-0.7) 10^3/uL Baso # (Auto) (0.0-0.1) 10^3/uL Absolute Nucleated RBC x10^3/uL Nucleated RBC % /100WBC Sodium (135-145) mmol/L Potassium (3.5-5.0) mmol/L Chloride (101-111) mmol/L Carbon Dioxide (21-32) mmol/L Anion Gap (6-13) BUN (6-20) mg/dL Creatinine (0.4-1.0) mg/dL Estimated GFR (MDRD) (>89) Glucose (70-100) mg/dL Calcium (8.5-10.3) mg/dL Total Bilirubin (0.2-1.0) mg/dL AST (10-42) IU/L ALT (10-60) IU/L Alkaline Phosphatase (42-121) IU/L Total Protein (6.7-8.2) g/dL Albumin (3.2-5.5) g/dL Globulin (2.1-4.2) g/dL Albumin/Globulin Ratio (1.0-2.2) TSH (0.34-5.60) uIU/mL Free T4 0.85 (0.58-1.64) ng/dL Free T3 pg/mL 4.27 H (2.5-3.9) pg/mL C.trachomatis RNA (TMA) NOT DETECTED (NOT DETECTED) Chlamydia/GC Comment SEE NOTE N.gonorrhoeae RNA (TMA) NOT DETECTED (NOT DETECTED) Assessment/Plan - Problem List (1) Tubo-ovarian abscess Impression: White count increasing. pain increasing. not responding to antibiotics. Discussed options. pt aware of possible affect of surgery. Exlaproscopy. Probable RSO, possible appy, remote Hyst. Risks explained Bleeding infection injury to abdominal contents, DVT with PE. Adhesions infertility
[2019-02-26] MEDS: OXYMETAZOLINE NASAL SPRAY NAS SCH ×2 (09:15→20:00)
[2019-02-26] MEDS: DOCUSATE SODIUM 100 MG CAPSULE PO SCH ×2 (09:15→20:00)
[2019-02-26] MEDS: FLUTICASONE NASAL SPRAY NAS SCH (09:15)
[2019-02-26] MEDS: metroNIDAZOLE 500 MG/100 ML 500 MG/100 ML BAG IV SCH ×2 (09:19→18:49)
--- NOTE | 2019-02-26 10:37 | ANESTHESIA ---
Pre-Anesthesia VS, & Labs - Diagnosis Diagnosis Epilepsy Right ovarian cyst Leukocytosis Abdominal pain Dysmenoreha Pre-op Exam - Procedure Diagnostic laparoscopy Vital Signs: Temp Pulse Resp BP Pulse Ox 36.8 C 104 H 16 133/73 H 99 02/26/19 07:50 02/26/19 07:50 02/26/19 07:50 02/26/19 07:50 02/26/19 07:50 Height 5 ft 5 in Weight (kg) 112.5 kg Body Mass Index 41.3 - NPO >8 hours - Is Patient ?: No - Lab Results Current Lab Results: Laboratory Tests 02/26/19 06:06: TSH 18.98 H 02/26/19 06:06: Sodium 139, Potassium 4.0, Chloride 102, Carbon Dioxide 28, Anion Gap 9.0, BUN 10, Creatinine 0.5, Estimated GFR (MDRD) 153, Glucose 109 H, Calcium 9.0, Total Bilirubin 0.6, AST 27, ALT 36, Alkaline Phosphatase 81, Total Protein 6.8, Albumin 3.4, Globulin 3.4, Albumin/Globulin Ratio 1.0 02/26/19 06:06: WBC 14.7 H, RBC 4.53, Hgb 12.4, Hct 38.2, MCV 84.3, MCH 27.3, MCHC 32.3, RDW 12.4, Plt Count 272, MPV 8.5, Neut # (Auto) 10.0 H, Lymph # (Auto) 3.4, [place] # (Auto) 0.8, Eos # (Auto) 0.5, Baso # (Auto) 0.0, Absolute Nucleated RBC 0.00, Nucleated RBC % 0.0 02/26/19 05:00: Free T3 pg/mL 4.27 H 02/26/19 05:00: Free T4 0.85 02/25/19 05:30: WBC 11.7 H, RBC 4.52, Hgb 12.3, Hct 37.6, MCV 83.3, MCH 27.3, MCHC 32.7, RDW 12.6, Plt Count 255, MPV 8.3, Neut # (Auto) 6.9 H, Lymph # (Auto) 3.4, [place] # (Auto) 0.9, Eos # (Auto) 0.5, Baso # (Auto) 0.1, Absolute Nucleated RBC 0.01, Nucleated RBC % 0.0 02/24/19 11:16: Sodium 141, Potassium 4.2, Chloride 103, Carbon Dioxide 27, Anion Gap 11.0, BUN 9, Creatinine 0.6, Estimated GFR (MDRD) 124, Glucose 95, Calcium 9.9, Total Bilirubin 0.9, AST 27, ALT 37, Alkaline Phosphatase 107, Total Protein 7.8, Albumin 4.0, Globulin 3.8, Albumin/Globulin Ratio 1.1, Lipase 23 02/24/19 11:16: WBC 13.0 H, RBC 5.32, Hgb 14.4, Hct 43.5, MCV 81.8, MCH 27.0, MCHC 33.0, RDW 12.4, Plt Count 282, MPV 8.0, Neut # (Auto) 8.6 H, Lymph # (Auto) 3.2, [place] # (Auto) 0.6, Eos # (Auto) 0.5, Baso # (Auto) 0.1, Absolute Nucleated RBC 0.00, Nucleated RBC % 0.0 Lab results reviewed: Yes Fish Bones: 02/26/19 06:06 02/26/19 06:06 Home Medications and Allergies Home Medications: Ambulatory Orders Lacosamide [Vimpat] 300 mg PO QPM 02/24/19 Norgestimate-Ethinyl Estradiol [Ortho Tri-Cyclen 28 Tablet] 1 tab PO DAILY 02/24/19 Active Medications Docusate Sodium (Colace 100mg Capsule) 100 mg PO BID [facility] Last Admin: 02/26/19 09:15 Dose: Not Given Doxycycline Hyclate (Vibramycin) 100 mg PO BID [facility] Last Admin: 02/26/19 08:39 Dose: 100 mg Epinephrine HCl () 0.3 mg IM Q4H PRN PRN Reason: Swelling Fluticasone Propionate (Flonase) 1 sprays ALISA DAILY [facility] Last Admin: 02/26/19 09:15 Dose: Not Given Hydromorphone HCl (Dilaudid Inj Syringe) 1 mg IVP Q2H PRN PRN Reason: PAIN Last Admin: 02/26/19 08:39 Dose: 1 mg Ampicillin Sodium/Sulbactam (Sodium 3 gm/ Sodium Chloride) 100 mls @ 200 mls/hr IV Q6HR [facility] Last Infusion: 02/26/19 06:43 Dose: Infused Lactated Ringer's (Lr) 1,000 mls @ 75 mls/hr IV .[id number] [facility] Last Infusion: 02/26/19 06:42 Dose: 75 mls/hr Levetiracetam 1,500 mg/ Sodium (Chloride) 115 mls @ 400 mls/hr IV ONCE ANAIS Stop: 02/26/19 17:00 Last Infusion: 02/26/19 08:50 Dose: Infused Metronidazole (Flagyl 500 Mg/100 Ml) 500 mg in 100 mls @ 100 mls/hr IV Q8H [facility] Last Infusion: 02/26/19 10:19 Dose: Infused Ketorolac Tromethamine (Toradol Inj (30mg)) 30 mg IVP Q6H [facility] Stop: 03/01/19 17:59 Last Admin: 02/26/19 05:37 Dose: 30 mg Levetiracetam (Keppra) 1,500 mg PO 0700 [facility] Last Admin: 02/26/19 06:40 Dose: 1,500 mg Levetiracetam (Keppra) 2,250 mg PO 1900 [facility] Last Admin: 02/25/19 19:00 Dose: 2,250 mg Ondansetron HCl (Zofran Odt) 4 mg TL Q6H PRN PRN Reason: Nausea / Vomiting Last Admin: 02/26/19 01:51 Dose: 4 mg Ondansetron HCl (Zofran Inj) 4 mg IVP Q4HR PRN PRN Reason: Nausea / Vomiting Oxymetazoline HCl (Afrin) 1 sprays ALISA BID [facility] Stop: 02/28/19 20:59 Last Admin: 02/26/19 09:15 Dose: Not Given Patient Own Med ( Lacosamide 150mg Tab ) 1 each PO 0700 [facility] Last Admin: 02/26/19 06:40 Dose: 1 each Patient Own Med ( Lacosamide 150mg Tab ) 2 each PO 1900 [facility] Last Admin: 02/25/19 19:01 Dose: 2 each Sodium Chloride ([place]) 2 sprays ALISA Q4HR PRN PRN Reason: Nasal Congestion Lacosamide [Vimpat] 150 mg PO DAILY 04/04/17 levETIRAcetam [Keppra] 1,500 mg PO DAILY 04/04/17 levETIRAcetam [Keppra] 2,250 mg PO QPM 04/04/17 Lacosamide [Vimpat] 300 mg PO QPM 02/24/19 Norgestimate-Ethinyl Estradiol [Ortho Tri-Cyclen 28 Tablet] 1 tab PO DAILY 02/24/19 Allergies/Adverse Reactions: Allergies Allergy/AdvReac Type Severity Reaction Status Date / Time apple Allergy Severe Anaphylaxis Verified 02/26/19 07:18 melon Allergy Severe Anaphylaxis Verified 02/26/19 07:18 latex Allergy Hives Verified 02/24/19 10:47 grape AdvReac Severe Anaphylaxis Verified 02/24/19 18:49 acetaminophen AdvReac Anaphylaxis Verified 02/24/19 14:57 azithromycin AdvReac See Note Verified 02/24/19 14:57 diphenhydramine AdvReac Anaphylaxis Verified 02/24/19 10:47 oxycodone AdvReac Anaphylaxis Verified 02/24/19 10:47 tramadol AdvReac Anaphylaxis Verified 02/24/19 10:47 Anes History & Medical History - Anesthetic History Anesthesia Complications: reports: No previous complications Family history of Anesthesia Complications: Denies Family history of Malignant Hyperthermia: Denies - Medical History Cardiovascular: reports: Hypertension, Murmur Pulmonary: reports: Asthma, Sleep apnea (suspected, undiagnosed) Gastrointestinal: reports: GERD, Cholelithiasis Urinary: reports: None Neuro: reports: Headaches, Seizure disorder, Other (Epilepsy) Musculoskeletal: reports: None Endocrine/Autoimmune: reports: None Blood Disorders: reports: None Skin: reports: None Smoking Status: Never smoker Psychosocial: reports: No issues indicated - Surgical History General: Cholecystectomy Eyes Ears Nose Throat (EENT): Tonsil/Adenoidectomy, Other (wisdom teeth) Exam General: Alert, Oriented x3 Dental: WNL Mouth Opening: Greater than 4 Fingerbreadths Neck Mobility: Normal Mallampati classification: II Thyromental Distance: 4-6 cm Respiratory: Lungs clear Cardiovascular: Regular rate Neurological: Normal speech Mental/Cognitive Status: Alert/Oriented X3 Cognitive Status: Within normal limits Plan Anesthesia Type: General Consent for Procedure(s) Verified and Reviewed: Yes Code Status: Attempt Resuscitation ASA classification: 2-Mild systemic disease Is this case an emergency?: Yes
[2019-02-26] MEDS ORDERED: LACTATED RINGERS 1,000 ML IV ONE (11:11)
[2019-02-26] MEDS ORDERED: GLYCOPYRROLATE 1 MG/5 ML VIAL IVP ONE (11:30)
[2019-02-26] MEDS ORDERED: fentaNYL 100 MCG/2 ML VIAL IVP ONE (11:30)
[2019-02-26] MEDS ORDERED: ONDANSETRON 4 MG/2 ML VIAL IVP ONE (11:30)
[2019-02-26] MEDS ORDERED: DEXAMETHASONE 4 MG/ML VIAL IVP ONE (11:30)
[2019-02-26] MEDS ORDERED: NEOSTIGMINE 1 MG/1 ML 10 ML MDV IVP ONE (11:30)
[2019-02-26] MEDS ORDERED: MIDAZOLAM 2 MG/2 ML VIAL IVP ONE (11:30)
[2019-02-26] MEDS ORDERED: PROPOFOL 200 MG/20 ML VIAL IVP ONE (11:30)
[2019-02-26] MEDS ORDERED: ROCURONIUM 50 MG/5 ML VIAL IVP ONE (11:30)
[2019-02-26] MEDS ORDERED: BUPIVACAINE 0.25%-EPI 1:200000 PF 30 ML VIAL ONE (11:39)
[2019-02-26] MEDS ORDERED: BUPIVACAINE 0.25%-EPI 1:200000 PF 30 ML VIAL SUBQ ONE (11:53)
--- NOTE | 2019-02-26 13:26 | OPERATIVE REPORT ---
Operative Report - General Admit Date: 02/24/19 Procedure Date: 02/26/19 Procedure Performed: Laparoscopic appendectomy - Procedure Note Primary Surgeon: Adama/Humberto co-surgeons Anesthesia Provider: Cipriano Moreno CRNA Anesthesia Technique: General ET tube, Local Findings: Thickened mesentery of appendix with normal appearing appendix. Complications: None. - Other Other Information/Narrative: Dr. Zaki Galan called me for an intraoperative consultation after laparoscopic examination of this patient's abdomen failed to reveal a gynecologic cause of her pain. The initial timeout was already completed as were all the preoperative checks. Three 5 mm ports had already been placed. The patient was already in Trendelenburg position. Upon my arrival a brief timeout was performed to ensure that we were all aware of the patient's identity and the operative plan. Examination of the right lower quadrant showed a very small adhesion of the colon to the right lateral wall. Additionally the mesentery of the appendix was quite thickened but the appendix itself appeared normal and the mesentery itself did not appear inflamed. Dr. Galan explained that the patient had been consented for a possible laparoscopic appendectomy. The appendiceal mesoappendix was taken using serial application of the LigaSure. A photograph was taken of the appendix with the mesial appendix completely controlled. After switching the umbilical 5 mm port for a 10 mm port, a 45 mm laparoscopic stapler with a blue load was then used to transect the base the appendix. Unfortunately, it did not transect the entire base the appendix so another application of the stapler with this time with a white load was used to ensure complete transection. The staple line was noted to be secure and a small bleeder was controlled using LigaSure. The right lower quadrant was then copiously irrigated using warm sterile saline. There is no leak of blood or bowel contents. The transected appendix was then placed into an Endopouch that have been placed through the 10 mm port. The fascia and peritoneum were then injected using half percent Marcaine at all port sites under direct vision. The insufflation was stopped and the bag containing the appendix as well as the air within the abdomen was removed. The fascia at the umbilicus was closed using an 0 Vicryl suture in a [id number] fashion. Digital examination revealed the fascia to be closed. The skin at all 3 port sites was closed using a 4-0 Monocryl in a subcuticular fashion. Dermabond was applied. A dressing was applied. At this point a time out was performed that confirmed that all the counts were correct, the procedure that was performed, the blood loss, the urine output, the IV fluids administered, and the patients condition. Having tolerated the procedure well, the patient was subsequently extubated and taken to recovery room in good and stable condition. Please my note that my dictation here is incomplete, I joined the operation intermediate through and for other details of the operation one should refer to Dr. Galan's operative note Dragon disclaimer: This document was created in part using voice recognition technology. Because of the inherent limitations of the system ([employer]'s Dragon Dictate user manual states that the licensee understands that speech recognition is a statistical process and that recognition errors are inherent in the process), occasional same sounding word substitutions and grammatical errors do occur and persist despite proofreading. Please read this document for context.
--- NOTE | 2019-02-26 13:35 | OPERATIVE REPORT ---
Operative Report - General Admit Date: 02/24/19 Procedure Date: 02/26/19 Planned Procedure: DIAGNOSTIC LAPROSCOPY POSSIBLE RIGHT SALPINGOOPHERECTOMY, APPENDECOMY,LAPROTOMY Pre-Op Diagnosis: RIGHT SIDED ABDOMINAL PAIN PROBABLE TUBOOOVARIAN ABCESS Procedure Performed: DIAGNOSTIC LAPROSCOPY WITH DRAINAGE OF 7 ML RIGHT AVARIAN CYST, APPENDECTOMY Post Op Diagnosis: SIMPLE RIGHT OVARIAN CYST - Procedure Note Primary Surgeon: RAFA AGUILAR MD Secondary Surgeon: COURTNEY PATTON MD Anesthesia Provider: MAGALYS ARSHAD CRNA Anesthesia Technique: General ET tube Pathology: APPENDEX, RIGHT CYST FLUID. PELVIC CULTURES IV Fluids (mL): 800 Estimated Blood Loss (mL): 5 - Other Other Information/Narrative: [id number]
[2019-02-26] MEDS ORDERED: SODIUM CHLORIDE FLUSH 0.9% 10 ML SYRINGE IVP PRN (13:53)
[2019-02-26] MEDS: LACTATED RINGERS 1,000 ML IV SCH (14:30)
--- NOTE | 2019-02-26 14:32 | OPERATIVE REPORT ---
DATE OF SERVICE: 02/26/2019 Physician: Zaki Galan MD PREOPERATIVE DIAGNOSIS: Right-sided abdominal pain, probable tubo-ovarian abscess. POSTOPERATIVE DIAGNOSES 1. Right-sided abdominal pain. 2. Simple right ovarian cyst. 3. Possible appendicitis. 4. Normal tubes and ovaries bilaterally. 5. No evidence of any adhesions in the pelvis. PROCEDURES PERFORMED: Diagnostic laparoscopy with drainage of right ovarian cyst of 7 mL of fluid, p elvic washings, appendectomy. SURGEON: Zaki Galan MD [employer] SUPERINTENDENT: Spike Paul MD TYPE OF ANESTHESIA: General via endotracheal tube with Cipriano Moreno CRNA. PATHOLOGY: Appendix, fluid from the right ovarian cyst, cultures of the pelvis and ovarian cyst. IV FLUIDS: 800 mL. ESTIMATED BLOOD LOSS: 5 mL. FINDINGS: Upon entering the abdominal cavity, the pelvis did not show evidence of any purulent disch arge. It was clear, scant abdominal fluid. The ovary had a small ovarian cyst, which was drained la paroscopically. The tubes appeared to be normal bilaterally. The appendix also appeared to be somew hat normal. There was an adhesion way up by the liver, which was not in the area of her pain. The s mall bowel was inspected, no evidence of any Meckel's diverticulum. There were some periappendiceal adhesions. DESCRIPTION OF PROCEDURE: Following adequate endotracheal anesthesia, patient was placed in dorsal l ithotomy [facility] She was then prepped and draped in the usual fashion. A timeou t was performed, at which time, issues were addressed. At this point, a speculum was placed in the vagina, cervix visualized, grasped with a single-tooth te naculum, and dilated to 8 mm without any difficulty. A HUMI catheter was then placed. The operative gloves were changed, and following local anesthesia with 0.25% Marcaine with epinephrine, an incisio n was made in subumbilical region with an 11 blade. A 5 mm port was placed under direct visualizatio n on the third pass. There was some difficulty secondary to abdominal wall thickness. The bowel was inspected. There was no evidence of any injury, at this point. Two additional trocars were placed, both in the left and right lower quadrants following transillumination, which was difficult secondar y to abdominal wall thickness, local anesthetic with 0.25% Marcaine with epinephrine, as well as a sk in incision. The pelvis was then carefully inspected. The left tube and ovary appeared to be free of any adhesion s or disease. The uterus did not show evidence of any adhesions. The cul-de-sac was inspected and n oted to be free of any endometriosis or loculation. The right tube and ovary inspected. The tube ap peared to be normal. The right ovary, however, had a cyst, which was drained laparoscopically of 7 m L of clear, straw-colored fluid. The appendix was carefully inspected. The right side of the abdome n was inspected, and way up by the liver, there was an adhesion, probably from her previous laparosco pically. At this point, a consultation was obtained with General Surgery, who came and inspected the pelvis. At this point, because there was right-sided abdominal pain and no other gynecologic reason could be found, the decision was made to take the appendix out. This was done. Dr. Paul's dictation will appear separately. Following conclusion of his procedure, the pelvis was reinspected. There was no evidence of any active bleeding. The trocars were removed following allowing as much of the CO2 to escape. Because Dr. Paul had placed a 10 mm trocar subumbilically, the fascia was closed utilizing interr upted 0 Vicryl on a UR-6 needle. The incisions themselves were closed using 4-0 Monocryl subcuticula r, and then Mastisol was used to close these further. The uterine manipulator was taken out of the [facility]. The patient tolerated the procedure well and was taken to recovery in stable condition. TD: 02/26/2019 14:03
[2019-02-26] MEDS: SIMETHICONE CHEW 80 MG TABLET PO SCH ×2 (14:40→20:00)
[2019-02-26] MEDS: HYDROmorphone 1 MG/ML CARPUJECT IVP PRN ×2 (14:44→16:36)
[2019-02-26] MEDS ORDERED: KETOROLAC 30 MG/ML VIAL IVP SCH (15:00)
[2019-02-26] MEDS: SODIUM CHLORIDE FLUSH 0.9% 10 ML SYRINGE IVP SCH (15:36)
[2019-02-26] MEDS ORDERED: MORPHINE PCA 50 MG IV PRN (16:47)
[2019-02-26] MEDS ORDERED: KETOROLAC 30 MG/ML VIAL IVP PRN (16:49)
--- NOTE | 2019-02-26 17:09 | PROVIDER PROGRESS NOTE ---
Subjective - Prog Note Date Prog Note Date: 02/26/19 Prog Note Time: 17:07 - Subjective Pt reports feeling: No change Subjective: Ramona is having uncontrolled pain since surgery and notes it to be a 5 out of 10 after getting her increased dilaudid dose. She was agreeable to trying a morphine DIVISION MERCHANDISE MANAGER. She denies chest pain, a worsening headache, cough, vomiting, diarrhea, unusual bleeding, or a rash. Current Medications - Current Medications Current Medications: Active Medications: Docusate Sodium (Colace 100mg Capsule) 100 mg PO BID [facility] Doxycycline Hyclate (Vibramycin) 100 mg PO BID [facility] Epinephrine HCl () 0.3 mg IM Q4H PRN Fluticasone Propionate (Flonase) 1 sprays ALISA DAILY [facility] Ampicillin Sodium/Sulbactam (Sodium 3 gm/ Sodium Chloride) 100 mls @ 200 mls/hr IV Q6HR [facility] Metronidazole (Flagyl 500 Mg/100 Ml) 500 mg in 100 mls @ 100 mls/hr IV Q8H [facility] Lactated Ringer's (Lr) 1,000 mls @ 100 mls/hr IV .Q10H [facility] Ketorolac Tromethamine (Toradol Inj (30mg)) 30 mg IVP Q6H PRN Levetiracetam (Keppra) 1,500 mg PO 0700 [facility] Levetiracetam (Keppra) 2,250 mg PO 1900 [facility] Morphine Sulfate/Sodium Chloride (Morphine Ecg Technician (Use Ecg Technician Order Set)) 0 mg IV [employer]ISE MANAGER PRN; Protocol Ondansetron HCl (Zofran Odt) 4 mg TL Q6H PRN Ondansetron HCl (Zofran Inj) 4 mg IVP Q4HR PRN Oxymetazoline HCl (Afrin) 1 sprays ALISA BID [facility] Patient Own Med ( Lacosamide 150mg Tab ) 1 each PO 0700 [facility] Patient Own Med ( Lacosamide 150mg Tab ) 2 each PO 1900 [facility] Patient Own Med ( Norgestimate-Ethinyl Estradiol [Ortho Tri-Cyclen 28 Tablet ] 1 Tab) 1 each PO DAILY [facility] Simethicone (Mylicon) 80 mg PO TID [facility] Lacosamide [Vimpat] 150 mg PO DAILY 04/04/17 levETIRAcetam [Keppra] 1,500 mg PO DAILY 04/04/17 levETIRAcetam [Keppra] 2,250 mg PO QPM 04/04/17 Lacosamide [Vimpat] 300 mg PO QPM 02/24/19 Norgestimate-Ethinyl Estradiol [Ortho Tri-Cyclen 28 Tablet] 1 tab PO DAILY 02/24/19 Objective - Vital Signs/Intake & Output Reviewed Vital Signs: Yes Vital Signs: Vital Signs x48h Temp Pulse Pulse Resp BP BP Pulse Ox 02/26/19 16:40 36.9 C 103 H 22 140/66 H 92 02/26/19 15:30 36.9 C 102 H 18 131/62 H 94 02/26/19 15:29 36.9 C 100 18 131/62 H 96 02/26/19 15:00 37.4 C 95 20 129/66 92 02/26/19 14:30 36.8 C 100 22 123/63 95 02/26/19 14:15 36.9 C 93 20 130/68 95 02/26/19 14:12 36.9 C 100 20 128/72 100 02/26/19 13:59 37 C 97 22 133/74 H 100 02/26/19 13:40 37.1 C 101 H 23 123/67 100 02/26/19 13:30 77 16 113/62 100 02/26/19 13:25 72 13 115/67 100 02/26/19 13:20 76 14 131/72 H 100 02/26/19 13:17 37 C 72 14 122/71 100 Intake & Output: Intake & Output 02/23/19 02/24/19 02/25/19 02/26/19 23:59 23:59 23:59 23:59 Intake Total 1914 5926.25 1561.250 Output Total 340 Balance 1914 5926.25 1221.250 - Objective General Appearance: positive: Alert, Moderate distress, Anxious Eyes Bilateral: positive: PERRL ENT: positive: Pharynx nml, No signs of dehydration Neck: positive: Nml inspection, Thyroid nml, No JVD, Trachea midline Respiratory: positive: Chest non-tender, No respiratory distress, Breath sounds nml Cardiovascular: positive: Regular rate & rhythm, No gallop, Tachycardia Peripheral Pulses: 1+ Radial (R), 1+ Radial (L) Abdomen: positive: Tenderness, Guarding, Hepatomegaly, Abnml bowel sounds Back: positive: Nml inspection Skin: positive: No rash, Warm, Dry Extremities: positive: Non-tender, Full ROM, Pedal edema Neurologic/Psychiatric: positive: Oriented x3, CN's nml (2-12), Motor nml, Sensation nml, Depressed mood/affect Reflexes: Bicep (R): 3+, Bicep (L): 3+ - Lab Results Fish Bones: 02/27/19 05:05 02/26/19 06:06 Other Labs: Lab Results x24hrs 02/26/19 02/26/19 02/26/19 Range/Units 06:06 06:06 06:06 WBC 14.7 H (4.8-10.8) x10^3/uL RBC 4.53 (4.20-5.40) 10^6/uL Hgb 12.4 (12.0-16.0) g/dL Hct 38.2 (37.0-47.0) % MCV 84.3 (81.0-99.0) fL MCH 27.3 (27.0-31.0) pg MCHC 32.3 (32.0-36.0) g/dL RDW 12.4 (12.0-15.0) % Plt Count 272 (130-450) 10^3/uL MPV 8.5 (7.9-10.8) fL Neut # (Auto) 10.0 H (1.5-6.6) 10^3/uL Lymph # (Auto) 3.4 (1.5-3.5) 10^3/uL Gregg # (Auto) 0.8 (0.0-1.0) 10^3/uL Eos # (Auto) 0.5 (0.0-0.7) 10^3/uL Baso # (Auto) 0.0 (0.0-0.1) 10^3/uL Absolute Nucleated RBC 0.00 x10^3/uL Nucleated RBC % 0.0 /100WBC Sodium 139 (135-145) mmol/L Potassium 4.0 (3.5-5.0) mmol/L Chloride 102 (101-111) mmol/L Carbon Dioxide 28 (21-32) mmol/L Anion Gap 9.0 (6-13) BUN 10 (6-20) mg/dL Creatinine 0.5 (0.4-1.0) mg/dL Estimated GFR (MDRD) 153 (>89) Glucose 109 H (70-100) mg/dL Calcium 9.0 (8.5-10.3) mg/dL Total Bilirubin 0.6 (0.2-1.0) mg/dL AST 27 (10-42) IU/L ALT 36 (10-60) IU/L Alkaline Phosphatase 81 (42-121) IU/L Total Protein 6.8 (6.7-8.2) g/dL Albumin 3.4 (3.2-5.5) g/dL Globulin 3.4 (2.1-4.2) g/dL Albumin/Globulin Ratio 1.0 (1.0-2.2) TSH 18.98 H (0.34-5.60) uIU/mL Free T4 (0.58-1.64) ng/dL Free T3 pg/mL (2.5-3.9) pg/mL C.trachomatis RNA (TMA) (NOT DETECTED) Chlamydia/GC Comment N.gonorrhoeae RNA (TMA) (NOT DETECTED) 02/26/19 02/26/19 02/24/19 Range/Units 05:00 05:00 13:12 WBC (4.8-10.8) x10^3/uL RBC (4.20-5.40) 10^6/uL Hgb (12.0-16.0) g/dL Hct (37.0-47.0) % MCV (81.0-99.0) fL MCH (27.0-31.0) pg MCHC (32.0-36.0) g/dL RDW (12.0-15.0) % Plt Count (130-450) 10^3/uL MPV (7.9-10.8) fL Neut # (Auto) (1.5-6.6) 10^3/uL Lymph # (Auto) (1.5-3.5) 10^3/uL Gregg # (Auto) (0.0-1.0) 10^3/uL Eos # (Auto) (0.0-0.7) 10^3/uL Baso # (Auto) (0.0-0.1) 10^3/uL Absolute Nucleated RBC x10^3/uL Nucleated RBC % /100WBC Sodium (135-145) mmol/L Potassium (3.5-5.0) mmol/L Chloride (101-111) mmol/L Carbon Dioxide (21-32) mmol/L Anion Gap (6-13) BUN (6-20) mg/dL Creatinine (0.4-1.0) mg/dL Estimated GFR (MDRD) (>89) Glucose (70-100) mg/dL Calcium (8.5-10.3) mg/dL Total Bilirubin (0.2-1.0) mg/dL AST (10-42) IU/L ALT (10-60) IU/L Alkaline Phosphatase (42-121) IU/L Total Protein (6.7-8.2) g/dL Albumin (3.2-5.5) g/dL Globulin (2.1-4.2) g/dL Albumin/Globulin Ratio (1.0-2.2) TSH (0.34-5.60) uIU/mL Free T4 0.85 (0.58-1.64) ng/dL Free T3 pg/mL 4.27 H (2.5-3.9) pg/mL C.trachomatis RNA (TMA) NOT DETECTED (NOT DETECTED) Chlamydia/GC Comment SEE NOTE N.gonorrhoeae RNA (TMA) NOT DETECTED (NOT DETECTED) ABX Reporting Has patient been on IV antibiotics over the past 48 hours?: Yes Sepsis Event Note (H) - Evaluation Current Stage of Sepsis: Ruled out Assessment/Plan - Problem List (1) Status post appendectomy Impression: -Increased WBC count, now up to 14.7, increased abdominal pain, and intractable nausea and vomiting this morning - Dr. Galan and Dr. Aparicio performed a tandem surgery with removal of her appendix and an ovarian cyst drainage Plan: Continue pain control, monitor vital signs (2) Uncontrolled pain Impression: - Increased pain overnight - Now post-op of right ovarian cyst drainage and status post appendectomy - Post op pain was unbearable, so a morphine DIVISION MERCHANDISE MANAGER was initiated Plan: continue to monitor on morphine DIVISION MERCHANDISE MANAGER with basal rate of 0.5mg per hour (3) Right lower quadrant abdominal pain Impression: - One of her presenting symptoms - Likely due to right ovarian cyst/appendicitis Plan: Continue Morphine DIVISION MERCHANDISE MANAGER (4) Right ovarian cyst Impression: - Imaging upon admission confirmed this suspicion - Dr. Galan is managing - Now Post-op Plan: Continue with pain control, monitor vital signs, labs (5) Seizure disorder Impression: - Takes 2 agents, Keppra and Lacosamide - No reported seizures on this admission Plan: Continue meds, and monitor (6) Asthma Impression: - Undiagnosed NIKOLAI - No home inhalers listed - No shortness of breath on exam Plan: Monitor closely post op, and especially now on morphine DIVISION MERCHANDISE MANAGER Qualifiers: Asthma severity: moderate (7) Euthyroid sick syndrome Impression: - TSH was 18 - Free T3 was elevated, T4 normal - Likely will lead to full hypothyroidism Plan: Continue low dose synthroid daily, recheck TSH in ~ 4-6 weeks with PCP
[2019-02-26] MEDS ORDERED: MORPHINE 2 MG/ML SYRINGE IVP ONE (18:23)
[2019-02-26] MEDS ORDERED: SODIUM CHLORIDE 0.9% 500 ML IV ONE (18:35)
[2019-02-26] MEDS ORDERED: levETIRAcetam 250 MG TABLET PO SCH (21:00)
[2019-02-26] MEDS ORDERED: LACOSAMIDE 300 MG PO SCH (21:00)
[2019-02-27] MEDS: LACTATED RINGERS 1,000 ML IV SCH (00:09)
[2019-02-27] MEDS: SODIUM CHLORIDE FLUSH 0.9% 10 ML SYRINGE IVP SCH ×2 (00:16→12:03)
[2019-02-27] MEDS ORDERED: BENZOCAINE/MENTHOL LOZENGE MM PRN (01:59)
[2019-02-27] MEDS: AMPICILLIN/SULBACTAM 3 GM in SODIUM CHLORIDE 0.9% MINIBAG 100 ML IV SCH (02:07)
[2019-02-27] MEDS: metroNIDAZOLE 500 MG/100 ML 500 MG/100 ML BAG IV SCH (02:42)
[2019-02-27] MEDS: levETIRAcetam 250 MG TABLET PO SCH (06:03)
[2019-02-27] MEDS: SIMETHICONE CHEW 80 MG TABLET PO SCH ×2 (06:04→11:52)
[2019-02-27] MEDS: LACOSAMIDE 150 MG PO SCH (06:04)
[2019-02-27] MEDS ORDERED: NAPROXEN 250 MG TABLET PO PRN (07:24)
[2019-02-27] MEDS ORDERED: HYDROmorphone 2 MG TABLET PO PRN ×2 (07:26→12:10)
--- NOTE | 2019-02-27 07:33 | PROVIDER PROGRESS NOTE ---
Subjective - Subjective Subjective: S: tolerating clear liquids, no emeisis. Comfortable in bed. Not OOB yet. O: AVSS Alert, seems suspicious, affect irritable, good eye contact, normal speech pattern Abd soft, appropriately tender, non-distended Incisions without erythema or induration. Covered by dermabond. LE with trace edema bilateral ankle A/P: 23yo POD #1 s/p diagnostic laparoscopy with appendectomy and drainage of ov cyst. Was brought to the OR in suspicion of tuboovarian abscess but her pelvis looked great. Cyst c/w normal ovulatory activity but was drained. Now she is afebrile and pain is improved. It is possible that the pt had PID that is now well-treated with 3d of antibiotics. --Advance surgical milestones: eat, ambulate, remove faustin, saline lock --Stop all antibiotics IV. Change to po doxy and metronidazole only --Change to po narcotics--dilaudid --Anticipate discharge today. Pt anticipates being able to go home this evening. Objective - Vital Signs/Intake & Output Vital Signs: Vital Signs x48h Temp Pulse Resp BP Pulse Ox 02/27/19 06:35 18 02/27/19 05:00 98.6 F 84 18 112/59 L 100 02/27/19 04:50 16 02/27/19 02:50 16 02/27/19 00:40 16 Intake & Output: Intake & Output 02/24/19 02/25/19 02/26/19 02/27/19 23:59 23:59 23:59 23:59 Intake Total 1914 5926.25 2711.250 1555 Output Total 1790 750 Balance 1914 5926.25 921.250 805 - Lab Results Fish Bones: 02/27/19 05:05 02/26/19 06:06 Other Labs: Lab Results x24hrs 02/27/19 02/26/19 02/26/19 Range/Units 05:05 05:00 05:00 Hgb 11.1 L (12.0-16.0) g/dL Free T4 0.85 (0.58-1.64) ng/dL Free T3 pg/mL 4.27 H (2.5-3.9) pg/mL Sepsis Event Note (H) - Evaluation Current Stage of Sepsis: Ruled out
[2019-02-27] MEDS: ONDANSETRON ODT 4 MG TABLET TL PRN (08:39)
[2019-02-27] MEDS ORDERED: LACOSAMIDE 150 MG PO SCH (09:00)
[2019-02-27] MEDS ORDERED: POLYETHYLENE GLYCOL 3350 17 GM PACKET PO SCH (09:00)
[2019-02-27] MEDS ORDERED: metroNIDAZOLE 250 MG TABLET PO SCH (09:00)
[2019-02-27] MEDS ORDERED: levETIRAcetam 250 MG TABLET PO SCH (09:00)
[2019-02-27] MEDS ORDERED: NORGESTIMATE ETHINYL ESTRADIOL PO SCH (09:00)
[2019-02-27] MEDS: DOXYCYCLINE 100 MG TABLET PO SCH (10:00)
[2019-02-27] MEDS: FLUTICASONE NASAL SPRAY NAS SCH (11:17)
[2019-02-27] MEDS: OXYMETAZOLINE NASAL SPRAY NAS SCH (11:17)
[2019-02-27] MEDS: DOCUSATE SODIUM 100 MG CAPSULE PO SCH (11:52)
[2019-02-27 11:53] VITALS: BP 124/64
--- NOTE | 2019-02-27 12:13 | Discharge Plan ---
Discharge Plan Disposition: 01 Home, Self Care Condition: Good Diet: Regular Activity Restrictions: Activity as Tolerated Shower Restrictions: No Driving Restrictions: Yes (not while on dilaudid) Additional Instructions or Follow Up instructions: See Leighann's written instructions No Smoking: If you smoke, Please STOP! Call for help. Follow-up with: Zaki Galan MD [Provider Admit Priv/Credential] - 1 Week
--- NOTE | 2019-03-02 08:30 | DISCHARGE SUMMARY ---
Physician: Deena Lawton MD DATE OF ADMISSION: 02/24/2019 DATE OF DISCHARGE: 02/27/2019 ADMISSION DIAGNOSES 1. Pelvic inflammatory disease. 2. Epilepsy. DISCHARGE DIAGNOSES 1. Pelvic inflammatory disease. 2. Epilepsy. OPERATIONS AND PROCEDURES: On 02/26/2019, laparoscopic appendectomy. HOSPITAL COURSE: Patient was admitted for treatment of pelvic inflammatory disease. She had an elev ated white count. She had an acute onset of right lower quadrant pain. She appeared to have a possi ble tubo-ovarian abscess by ultrasound. A CT was normal, as far as her appendix went. She was start ed on Unasyn and doxycycline. The following day, she was feeling a little bit better, but not much. Her white count was still elevated, and her IV antibiotics were continued. On the , her pain kebede d increased and her white count increased to 14.7 while on the antibiotics. Due to this, she was janay en to the OR for a diagnostic laparoscopy with probable treatment of tubo-ovarian abscess and possibl e appendectomy. The surgical findings were completely normal. Her pelvis appeared normal. Her fall opian tubes and ovaries appeared normal. There was no endometriosis, no adhesive disease. Her appen izabel appeared normal. General Surgery was consulted, and they agreed to remove the appendix, as she w as having right lower quadrant pain and because we were already in her abdomen. The surgery was unco mplicated. By postoperative day 1, she was eating, ambulating, and urinating without difficulties. Her pain was controlled on oral pills alone. She was not experiencing any abnormal vaginal bleeding. She felt r paul to go home. PHYSICAL EXAMINATION VITAL SIGNS: She was afebrile with normal vital signs. GENERAL: She was alert and in no apparent distress. ABDOMEN: Soft and appropriately tender for a postoperative abdomen. Incisions were clean, dry, and intact, without erythema or induration. They were covered with Dermabond. EXTREMITIES: There was no lower extremity erythema. Calves were nontender. No cord. There was tra ce edema bilaterally. DISCHARGE CONDITION: Good. DISPOSITION: Home. FOLLOWUP: In [address] Galan. INSTRUCTIONS: Routine laparoscopy instructions were given. MEDICATIONS 1. Continue home medications. 2. Metronidazole 500 mg p.o. b.i.d. to complete a 14-day course. 3. Doxycycline 100 mg p.o. b.i.d. to complete a 14-day course. TD: 02/27/2019 16:46
== END 2019-02-27 14:00 | disposition home or self-care (01) | DRG 769 ==
LOC: ED 10:44 → MS2 17:17 → OBSVTOIN 02-27 07:16
PROVIDERS: ADMIT Obstetrics & Gynecology; ATTEND Obstetrics & Gynecology
PROC: 0DTJ4ZZ Resection of Appendix, Percutaneous Endoscopic Approach (ICD-10-PCS; 2019-02-26)
PROC: 0U914ZZ Drainage of Left Ovary, Percutaneous Endoscopic Approach (ICD-10-PCS; principal; 2019-02-26 10:30)
DX: O86.19 Other infection of genital tract following delivery (principal); O90.89 Other complications of the puerperium, not elsewhere classified; N83.291 Other ovarian cyst, right side; K37 Unspecified appendicitis; E07.81 Sick-euthyroid syndrome; G40.909 Epilepsy, unspecified, not intractable, without status epilepticus; E66.9 Obesity, unspecified; J45.909 Unspecified asthma, uncomplicated; G47.33 Obstructive sleep apnea (adult) (pediatric); I10 Essential (primary) hypertension; K21.9 Gastro-esophageal reflux disease without esophagitis; F41.9 Anxiety disorder, unspecified; R51 Headache; D72.829 Elevated white blood cell count, unspecified; N94.6 Dysmenorrhea, unspecified; Z79.3 Long term (current) use of hormonal contraceptives; Z87.19 Personal history of other diseases of the digestive system; Z90.49 Acquired absence of other specified parts of digestive tract; Z80.41 Family history of malignant neoplasm of ovary; Z80.3 Family history of malignant neoplasm of breast; Z80.8 Family history of malignant neoplasm of other organs or systems
CPT/HCPCS: 25605; 36415; 44970; 49322; 74177; 76856; 80053; 81001; 81025; 83690; 84439; 84443; 84481; 85018; 85025; 87070; 87086; 87205; 87210; 87491; 87591; 96361; 96365; 96366; 96367; 96372; 96375; 96376; 99284; A9270; G0378; J1170; J2270; J7120; Q0162; Q9967; 81003

== ENCOUNTER 2019-07-29 18:33 | Outpatient (CLI) | payer OTHER ==
--- NOTE | 2019-07-30 17:42 | CT Report ---
Reason: INJURY OF LEFT ANKLE Procedure Date: 07/29/2019 Accession Number: [id number] / [id number] Procedure: CT - LOWER EXTREMITY WO - LT CPT Code: FULL RESULT: EXAM: LEFT KNEE CT WITHOUT CONTRAST. EXAM DATE: 07/29/2019 06:41 PM. CLINICAL HISTORY: Injury of left ankle. "Left ankle pain after inversion injury 4 days ago". COMPARISON: None. TECHNIQUE: Thin-section axial images were acquired of the knee without contrast. Post-processing: Coronal and sagittal reformats. Other: None. In accordance with CT protocol optimization, one or more of the following dose reduction techniques were utilized for this exam: automated exposure control, adjustment of mA and/or KV based on patient size, or use of iterative reconstructive technique. FINDINGS: Bones: No fracture or bone lesion. Bone island 9 mm anterior lateral distal tibia epiphysis. Joints: Negative for increased ankle joint fluid. Musculature: Normal. No fatty atrophy. Other: Grade 2 partial tear anterior talofibular ligament. The calcaneofibular ligament is intact. Superficial and deep deltoid ligament are intact. Negative for tendon tear. Intact distal anterior tibiofibular ligament. Preservation of the tarsal sinus fat signal. IMPRESSION: 1. Negative for fracture. 2. Grade II partial tear anterior talofibular ligament. RADIA
== END 2019-07-29 18:34 | disposition home or self-care (01) ==
LOC: DI 18:33
PROVIDERS: ATTEND Physician Assistant
DX: S93.492A Sprain of other ligament of left ankle, initial encounter (principal)

== ENCOUNTER 2020-06-22 15:17 | Outpatient (CLI) | payer OTHER ==
[2020-06-22 15:48] VITALS: BP 125/69
[2020-06-22 16:26] LABS: MUDS CUTOFF CONCENTRATIONS CUTOFF CONC BELOW:
[2020-06-22 16:34] LABS: BILIRUBIN,URINE NEGATIVE (NEGATIVE); GLUCOSE, URINE (UA) NEGATIVE (NEGATIVE); KETONES,URINE (UA) NEGATIVE (NEGATIVE); LEUKOCYTE ESTERASE, URINE LARGE (NEGATIVE); NITRITE,URINE NEGATIVE (NEGATIVE); OCCULT BLOOD,URINE NEGATIVE (NEGATIVE); PROTEIN,URINE NEGATIVE (NEGATIVE); UROBILINOGEN,URINE 0.2 (NORMAL) E.U./dL (NORMAL)
[2020-06-22 16:42] LABS: CLARITY,URINE HAZY (CLEAR)
[2020-06-22 16:45] LABS: BACTERIA,URINE Many /HPF (None Seen); RBC,URINE 0-5 /HPF (0-5); SQUAMOUS EPITHELIAL CELL,UR MANY Squamous (<= Few)
[2020-06-22 16:47] LABS: AMPHETAMINE SCREEN,URINE NEGATIVE (NEGATIVE); BENZODIAZEPINES SCREEN, URINE NEGATIVE (NEGATIVE); COCAINE SCREEN URINE NEGATIVE (NEGATIVE); METHADONE SCREEN, URINE NEGATIVE (NEGATIVE); METHAMPHETAMINES SCREEN, URINE NEGATIVE (NEGATIVE); OPIATE SCREEN, URINE NEGATIVE (NEGATIVE); OXYCODONE SCREEN, URINE NEGATIVE (NEGATIVE); PROPOXYPHENE SCREEN, URINE NEGATIVE (NEGATIVE); TRICYCLIC ANTIDEPRESSANT,URINE NEGATIVE (NEGATIVE)
--- NOTE | 2020-06-22 17:46 | PROVIDER PROGRESS NOTE ---
- HPI Chief Complaint: Other (Patient reginaldo 24 yo at 33+3 wga here with contractions. complicated by seizure disorder and BMI> [address] Mcwilliams at [facility] No recent IC. No falls or blows to abdomen. +FM. No LOF or VB. Intermittent abd pain worsens with activity and has been present since 06/21) Current : Current EDU 08/07/20 Gestation 33 Weeks and 3 Days 2 Para 1 Vital Signs Temperature 98.2 F 06/22/20 15:40 Heart Rate 104 H 06/22/20 15:40 Respiratory Rate 18 06/22/20 15:40 Blood Pressure 125/69 06/22/20 15:40 O2 Saturation 99 06/22/20 15:40 Temperature 98.2 F 06/22/20 15:40 Heart Rate 104 H 06/22/20 15:40 Respiratory Rate 18 06/22/20 15:40 Blood Pressure 125/69 06/22/20 15:40 O2 Saturation 99 06/22/20 15:40 - Exam GEN: NAD ABD: S&NT SVE FT/long high, unchanged in serial exam per RN SSE: small amount of dark blood in vault, no active bleeding - Procedures OB Procedure Performed: NST Diagnosis/Indication for NST: labor NST Procedure: EFM 145 mod jamal 15x15 accels no decels TOCO: quiet. Patient asked to verbally nelia ctx; <Q15-20 min Service Date of procedure: 06/22/20 Findings: Stable cervical exam at FT/long/high FFN positive but likely confounded by small amount of VB(no active bleeding) UA with large LE and bacteria TOCO quiet Cat I tracing vaginitis panel and GCCT pending Suspect UTI Rx for cephalexin 500 mgpo TID x 7 days provided Low concern for labor Cat I tracing Warning signs reviewed DC to home with routine OB fu
[2020-06-22 19:53] LABS: TRICHOMONAS VAGINALIS DNA NEGATIVE (NEGATIVE)
== END 2020-06-22 18:10 | disposition home or self-care (01) ==
LOC: WFO 15:17 → FBP 15:20 → WFO 18:10
PROVIDERS: ATTEND Obstetrics & Gynecology
DX: O99.89 Other specified diseases and conditions complicating pregnancy, childbirth and the puerperium (principal); R82.71 Bacteriuria; Z3A.33 33 weeks gestation of pregnancy; R10.9 Unspecified abdominal pain
CPT/HCPCS: 80306; 81001; 82731; 87086; 87491; 87591; 87661; 87797; 87801; 99215

== ENCOUNTER 2021-02-16 09:12 | Emergency (ER) | payer OTHER ==
[2021-02-16 09:25] VITALS: BP 130/85
--- NOTE | 2021-02-16 10:03 | XRAY Report ---
PROCEDURE: Elbow 3 View RT INDICATIONS: fall pain over radial head TECHNIQUE: 3 views of the elbow were acquired. COMPARISON: None. FINDINGS: Bones: No acute fractures or dislocations. No suspicious bony lesions. Soft tissues: No substantial elbow joint effusion. No suspicious soft tissue calcifications. IMPRESSION: Right elbow without acute fracture or dislocation. No substantial joint effusion visualized. If there is persistent clinical concern for a radiographically occult fracture, recommend immobilizat ion and repeat imaging in 10 to 14 days. Reviewed by: Gregg Castellanos MD on 02/16/2021 10:02 AM PDT Approved by: Gregg Castellanos MD on 02/16/2021 10:02 AM PDT Station ID: [id number]
--- NOTE | 2021-02-16 10:14 | ED Physician Documentation ---
PD HPI UPPER EXT INJURY - Stated complaint Stated Complaint: FELL - ELBOW PX - Chief complaint Chief Complaint: Ext Problem - History obtained from History obtained from: Patient - History of Present Illness Location: Right, Elbow Type of injury: Fall, Blunt / blow Where injury occurred: Home Timing - onset: Enter time (0800), Today Timing - duration: Minutes Timing - details: Abrupt onset, Still present Improved by: Rest, Immobilization Worsened by: Moving, Palpating Associated symptoms: No: Weakness, Numbness, Tingling, Swelling, Discolored Contributing factors: No: Anticoagulated Similar symptoms before: Has not had sx before Recently seen: Not recently seen - Additonal information Additional information: 25-year-old female was carrying her 6-month-old child walking up steps when she fell she twisted on her body to protect her child and landed on her right elbow. She has immediate pain to the right elbow she has pain with supination pronation of the forearm she is able to flex and extend. 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 Psych: Anxiety Musculoskeletal: None Derm: None - Past Surgical History Past Surgical History: No General: Cholecystectomy HEENT: Tonsil/Adenoidectomy, Other - Present Medications Home Medications: Ambulatory Orders Medication Instructions Recorded Confirmed levETIRAcetam [Keppra] 1,875 mg PO DAILY 04/04/17 02/16/21 levETIRAcetam [Keppra] 2,250 mg PO QPM 04/04/17 02/16/21 Citalopram [CeleXA] 1 tab DAILY 02/16/21 02/16/21 - Allergies Allergies/Adverse Reactions: Allergies Allergy/AdvReac Type Severity Reaction Status Date / Time apple Allergy Severe Anaphylaxis Verified 02/26/19 07:18 melon Allergy Severe Anaphylaxis Verified 02/26/19 07:18 latex Allergy Hives Verified 02/24/19 10:47 Raisin [Raisins] Allergy Anaphylaxis Verified 02/27/19 14:45 grape AdvReac Severe Anaphylaxis Verified 02/24/19 18:49 acetaminophen AdvReac Anaphylaxis Verified 02/24/19 14:57 azithromycin AdvReac See Note Verified 02/24/19 14:57 diphenhydramine AdvReac Anaphylaxis Verified 02/24/19 10:47 oxycodone AdvReac Anaphylaxis Verified 02/24/19 10:47 tramadol AdvReac Anaphylaxis Verified 02/24/19 10:47 - Social History Does the pt smoke?: No Smoking Status: Never smoker Does the pt drink ETOH?: No - Immunizations Immunizations are current?: Yes - POLST Patient has POLST: No POLST Status: Full Code PD ED PE NORMAL - General General: Alert and oriented X 3, No acute distress, Well developed/nourished - HEENT HEENT: Atraumatic, PERRL, EOMI - Respiratory Respiratory: No respiratory distress - Derm Derm: Normal color, Warm and dry, No rash - Extremities Extremities: No deformity, No edema, Other (There is a bruise to the lateral epicondyle of the right elbow. There is tenderness to this area as well as over the radial head. The patient has pain to supination and pronation of the forearm. She is able to flex and extend without much discomfort. Distal neurovascular intact. No obvious effu) - Neuro Neuro: Alert and oriented X 3, No motor deficit, No sensory deficit, Normal speech Eye Opening: Spontaneous Motor: Obeys Commands Verbal: Oriented GCS Score: 15 - Psych Psych: Normal mood, Normal affect Results - Vitals Vitals: Vital Signs - 24 hr 02/16/21 09:14 Temperature 37 C Heart Rate 81 Respiratory 16 Rate Blood Pressure 130/85 H O2 Saturation 95 Oxygen O2 Source Room air - Rads (name of study) elbow Radiology: Prelim report reviewed (Impression: Right elbow without acute fracture or dislocation. No substantial joint effusion visualized.), EMP read indepedently, See rad report Procedures - Splint (location) right elbow Splint applied by: Tech Type of splint: Fiberglass, Posterior Other: Patient tolerated well, No complications, Neurovascular intact, Good alignment, Sling provided PD MEDICAL DECISION MAKING - ED course Complexity details: reviewed results, re-evaluated patient, considered differential, d/w patient ED course: 25-year-old female with a fall onto her right elbow has a bruise and pain with supination pronation of the forearm she does not have the appearance of fracture on her x-ray. She is placed into a sling and a posterior splint and instructed to wear it up to 2 weeks. She is instructed that she may only need this 1 to 2 days. She will follow up with her primary if she has pain that persists. Departure - Departure Disposition: 01 Home, Self Care Clinical Impression: Contusion of elbow, right Qualifiers: Encounter type: initial encounter Qualified Code(s): S50.01XA - Contusion of right elbow, initial encounter Condition: Stable Instructions: ED Contusion Elbow Follow-Up: PENELOPE MEIER DO [Primary Care Provider] -
--- OUTSIDE RECORDS SUMMARY | 2021-02-22 00:42 | EXTERNAL MEDICAL SUMMARY RPT | Continuity of Care Document ---
:1995 Demographics Phone Unavailable Preferred Language Unknown Marital Status Unknown Scientologist Affiliation Unknown Race Unknown Ethnic Group Unknown Author Organization [facility] Address [address] [id number] Phone Social History date description facility [phone]
== END 2021-02-16 10:43 | disposition home or self-care (01) ==
LOC: ED 09:12
DX: S50.01XA Contusion of right elbow, initial encounter (principal); W10.9XXA Fall (on) (from) unspecified stairs and steps, initial encounter; Y93.01 Activity, walking, marching and hiking; Y92.009 Unspecified place in unspecified non-institutional (private) residence as the place of occurrence of the external cause; I10 Essential (primary) hypertension
CPT/HCPCS: 29105; 99282

== ENCOUNTER 2021-06-25 19:09 | Emergency (ER) | payer OTHER ==
--- NOTE | 2021-06-25 20:07 | XRAY Report ---
PROCEDURE: Chest 2 View X-Ray INDICATIONS: resp symptoms TECHNIQUE: 2 view(s) of the chest. COMPARISON: None. FINDINGS: Surgical changes and devices: None. Lungs and pleura: Small alveolar opacity in the right middle lobe, questionably in the left suprahila r region. Mild peribronchial thickening in the left suprahilar region. No pleural effusion or pneumot horax. Mediastinum: Mediastinal contours are normal. Heart size is normal. Bones and chest wall: No suspicious bony abnormalities. Soft tissues appear unremarkable. IMPRESSION: 1. Small bilateral alveolar opacities without pleural effusion. There may be underlying bronchitis. Reviewed by: Kennedi Harman MD on 06/25/2021 8:06 PM PDT Approved by: Kennedi Harman MD on 06/25/2021 8:06 PM PDT Station ID: [id number]
--- NOTE | 2021-06-25 21:02 | ED Physician Documentation ---
PD HPI DYSPNEA - Stated complaint Stated Complaint: SOA - Chief complaint Chief Complaint: Resp - History obtained from History obtained from: Patient - History of Present Illness Timing - onset: How many weeks ago (1) Worsened by: Coughing Associated symptoms: Cough. No: Wheezing, Bilateral edema, Unilateral edema Similar symptoms before: Has not had sx before Recently seen: Not recently seen - Additional information Additional information: c/o one week of gradual onset, steadily worsening dyspnea, generalized myalgias, She developed cough earlier today productive of yellow sputum. She recently returned from a trip to [place]. She is not COVID vaccinated Review of Systems Constitutional: reports: Myalgias. denies: Fever, Chills, Sweats Cardiac: reports: Reviewed and negative Respiratory: reports: Dyspnea, Cough. 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 Psych: Anxiety Musculoskeletal: None Derm: None - Past Surgical History Past Surgical History: No General: Cholecystectomy HEENT: Tonsil/Adenoidectomy, Other - Present Medications Home Medications: Ambulatory Orders Medication Instructions Recorded Confirmed Citalopram [CeleXA] 1 tab QPM 02/16/21 02/16/21 Amoxicillin 500 mg PO BID #19 06/25/21 Levetiracetam [Keppra] 2.5 tab PO QDBREAKFAST 06/25/21 06/25/21 Levetiracetam [Keppra] 3 tab PO QPM 06/25/21 06/25/21 - Allergies Allergies/Adverse Reactions: Allergies Allergy/AdvReac Type Severity Reaction Status Date / Time apple Allergy Severe Anaphylaxis Verified 02/26/19 07:18 melon Allergy Severe Anaphylaxis Verified 02/26/19 07:18 latex Allergy Hives Verified 02/24/19 10:47 Raisin [Raisins] Allergy Anaphylaxis Verified 02/27/19 14:45 grape AdvReac Severe Anaphylaxis Verified 02/24/19 18:49 acetaminophen AdvReac Anaphylaxis Verified 02/24/19 14:57 azithromycin AdvReac See Note Verified 02/24/19 14:57 diphenhydramine AdvReac Anaphylaxis Verified 02/24/19 10:47 oxycodone AdvReac Anaphylaxis Verified 02/24/19 10:47 tramadol AdvReac Anaphylaxis Verified 02/24/19 10:47 - Social History Does the pt smoke?: No Smoking Status: Never smoker Does the pt drink ETOH?: No - Immunizations Immunizations are current?: Yes - POLST Patient has POLST: No POLST Status: Full Code PD ED PE NORMAL - Vitals Vital signs reviewed: Yes - General General: Alert and oriented X 3, No acute distress, Well developed/nourished - Cardiac Cardiac: RRR, No murmur - Respiratory Respiratory: No respiratory distress, Clear bilaterally Results - Vitals Vitals: Vital Signs - 24 hr 06/25/21 06/25/21 06/25/21 19:14 19:18 21:33 Temperature 37.3 C 37.1 C Heart Rate 98 96 90 Respiratory 20 22 16 Rate Blood Pressure 134/78 H 121/80 123/81 H O2 Saturation 99 97 100 Oxygen O2 Source Room air - Rads (name of study) chest xray Radiology: Prelim report reviewed, See rad report PD MEDICAL DECISION MAKING - ED course Complexity details: reviewed results, re-evaluated patient, considered differential, d/w patient ED course: dyspnea x 1 week, developed productive cough earlier today. lungs are clear bilaterally to auscultation although CXR shows small bilateral alveolar opacities. she is in NAD on this H+P. Given amoxil for possible early pneumonia, but COVID also a concern and thus she is swabbed, results should be available within 2-3 days. Departure - Departure Disposition: 01 Home, Self Care Clinical Impression: Pneumonia Qualifiers: Pneumonia type: due to unspecified organism Laterality: bilateral Lung location: unspecified part of lung Qualified Code(s): J18.9 - Pneumonia, unspecified organism Condition: Good Instructions: ED Pneumonia Adult Follow-Up: ALISA Cano [Provider Group] Prescriptions: Amoxicillin 500 mg PO BID #19 Discharge Date/Time: 06/25/21 21:33
[2021-06-25] MEDS ORDERED: AMOXICILLIN 250 MG CAPSULE PO STA (21:21)
[2021-06-25 21:34] VITALS: BP 123/81
== END 2021-06-25 21:33 | disposition home or self-care (01) ==
LOC: ED 19:09
DX: U07.1 COVID-19 (principal); J12.82 Pneumonia due to coronavirus disease 2019
CPT/HCPCS: 71046; 87635; 99283; 99284; A9270

== ENCOUNTER 2021-10-03 13:34 | Emergency (ER) | payer OTHER ==
[2021-10-03 14:21] LABS: BILIRUBIN,URINE NEGATIVE (NEGATIVE); GLUCOSE, URINE (UA) NEGATIVE (NEGATIVE); KETONES,URINE (UA) NEGATIVE (NEGATIVE); LEUKOCYTE ESTERASE, URINE NEGATIVE (NEGATIVE); NITRITE,URINE NEGATIVE (NEGATIVE); OCCULT BLOOD,URINE NEGATIVE (NEGATIVE); PH,URINE 7.5 PH (5.0-7.5); PROTEIN,URINE NEGATIVE (NEGATIVE); UROBILINOGEN,URINE 0.2 (NORMAL) E.U./dL (NORMAL)
[2021-10-03 14:23] LABS: CLARITY,URINE CLEAR (CLEAR); HCG UR QUAL NEGATIVE
[2021-10-03 14:26] LABS: BASOPHILS % (AUTO) 0.2 %; EOSINOPHILS # (AUTO) 0.4 10^3/uL (0.0-0.7); HCT - HEMATOCRIT 41.5 % (37.0-47.0); HGB - HEMOGLOBIN 13.3 g/dL (12.0-16.0); LYMPHOCYTES # (AUTO) 3.9 10^3/uL (1.5-3.5); LYMPHOCYTES % (AUTO) 32.9 %; MEAN CORPUSCULAR HEMOGLOBIN 28.1 pg (27.0-31.0); MEAN CORPUSCULAR VOLUME 87.7 fL (81.0-99.0); MONOCYTES # (AUTO) 0.8 10^3/uL (0.0-1.0); MONOCYTES % (AUTO) 6.3 %; NEUTROPHILS # (AUTO) 6.9 10^3/uL (1.5-6.6); NEUTROPHILS % (AUTO) 57.4 %; PLT - PLATELET COUNT 281 10^3/uL (130-450); RED BLOOD COUNT 4.73 10^6/uL (4.20-5.40); RED CELL DISTRIBUTION WIDTH 12.3 % (12.0-15.0); WHITE BLOOD COUNT 11.9 x10^3/uL (4.8-10.8)
[2021-10-03] MEDS ORDERED: MAG HYDROX/AL HYDROX/SIMETH 30 ML UDC PO STA (14:39)
[2021-10-03] MEDS ORDERED: LIDOCAINE VISCOUS 2% 15 ML UDC MM STA (14:39)
--- NOTE | 2021-10-03 14:40 | ED Physician Documentation ---
PD HPI ABD PAIN - Stated complaint Stated Complaint: ABD PX - Chief complaint Chief Complaint: Abd Pain - History obtained from History obtained from: Patient - Additional information Additional information: 26-year-old woman with history of gallstone pancreatitis status post cholecystectomy 4 years ago, well-controlled epilepsy, and history of appendectomy presents with 2 weeks of increasing left-sided abdominal pain which gets worse immediately after eating or drinking anything including plain water. It radiates to the back. She has been nauseous but denies vomiting. No vaginal bleeding or discharge. No urinary complaints or hematuria. No changes in bowel movements or blood in the bowels. 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 Psych: Anxiety Musculoskeletal: None Derm: None - Past Surgical History Past Surgical History: No General: Cholecystectomy HEENT: Tonsil/Adenoidectomy, Other - Present Medications Home Medications: Ambulatory Orders Medication Instructions Recorded Confirmed Citalopram [CeleXA] 1 tab QPM 02/16/21 02/16/21 Amoxicillin 500 mg PO BID #19 06/25/21 Levetiracetam [Keppra] 2.5 tab PO QDBREAKFAST 06/25/21 06/25/21 Levetiracetam [Keppra] 3 tab PO QPM 06/25/21 06/25/21 HYDROcod/ACETAM 5/325 [Ruffin 5/325] 1 - 2 tab PO Q6H PRN #15 tablet 10/03/21 - Allergies Allergies/Adverse Reactions: Allergies Allergy/AdvReac Type Severity Reaction Status Date / Time apple Allergy Severe Anaphylaxis Verified 10/03/21 13:42 melon Allergy Severe Anaphylaxis Verified 10/03/21 13:42 latex Allergy Hives Verified 10/03/21 13:42 Raisin [Raisins] Allergy Anaphylaxis Verified 10/03/21 13:42 grape AdvReac Severe Anaphylaxis Verified 10/03/21 13:42 acetaminophen AdvReac Anaphylaxis Verified 10/03/21 13:42 azithromycin AdvReac See Note Verified 10/03/21 13:42 diphenhydramine AdvReac Anaphylaxis Verified 10/03/21 13:42 oxycodone AdvReac Anaphylaxis Verified 10/03/21 13:42 tramadol AdvReac Anaphylaxis Verified 10/03/21 13:42 - Social History Does the pt smoke?: No Smoking Status: Never smoker Does the pt drink ETOH?: No - Immunizations Immunizations are current?: Yes - POLST Patient has POLST: No POLST Status: Full Code PD ED PE NORMAL - Vitals Vital signs reviewed: Yes - General General: Alert and oriented X 3, No acute distress - Cardiac Cardiac: RRR, No murmur - Respiratory Respiratory: No respiratory distress, Clear bilaterally - Abdomen Abdomen: Normal bowel sounds, Soft, Other (Mild epigastric and left upper quadrant tenderness without surgical signs) - Derm Derm: Normal color, Warm and dry - Extremities Extremities: No edema, No calf tenderness / cord - Neuro Neuro: Alert and oriented X 3, Normal speech Results - Vitals Vitals: Vital Signs - 24 hr 10/03/21 10/03/21 13:42 15:45 Temperature 36.2 C L Heart Rate 79 72 Respiratory 18 18 Rate Blood Pressure 136/88 H 111/75 O2 Saturation 100 98 Oxygen O2 Source Room air - Labs Labs: Laboratory Tests 10/03/21 10/03/21 10/03/21 14:10 14:21 14:21 WBC 11.9 H RBC 4.73 Hgb 13.3 Hct 41.5 MCV 87.7 MCH 28.1 MCHC 32.0 RDW 12.3 Plt Count 281 MPV 10.0 Neut # (Auto) 6.9 H Lymph # (Auto) 3.9 H [place] # (Auto) 0.8 Eos # (Auto) 0.4 Baso # (Auto) 0.0 Absolute Nucleated RBC 0.00 Nucleated RBC % 0.0 Sodium 141 Potassium 4.3 Chloride 104 Carbon Dioxide 28 Anion Gap 9.0 BUN 11 Creatinine 0.7 Estimated GFR (MDRD) 101 Glucose 92 Calcium 9.6 Total Bilirubin 0.4 AST 16 ALT 20 Alkaline Phosphatase 82 Total Protein 7.5 Albumin 4.0 Globulin 3.5 Albumin/Globulin Ratio 1.1 Lipase 30 Urine Color YELLOW Urine Clarity CLEAR Urine pH 7.5 Ur Specific [place] 1.020 Urine Protein NEGATIVE Urine Glucose (UA) NEGATIVE Urine Ketones NEGATIVE Urine Occult Blood NEGATIVE Urine Nitrite NEGATIVE Urine Bilirubin NEGATIVE Urine Urobilinogen 0.2 (NORMAL) Ur Leukocyte Esterase NEGATIVE Ur Microscopic Review NOT INDICATED Urine Culture Comments NOT INDICATED Urine HCG, Qual NEGATIVE PD MEDICAL DECISION MAKING - ED course ED course: 26-year-old woman presents with left upper and epigastric pain immediately after eating. Presumed gastritis is that was most consistent. That said we gave her a GI cocktail and she had no relief. She was administered some Toradol and Zofran IV and a CT with contrast was ordered. CT showing diverticulosis, given the location of the pain I wonder if she has mild, CT occult diverticulitis. Given the circumstances read seems reasonable to treat for that with clear liquid diet followed by low residue diet and further dietary instructions. I do not think she needs antibiotics but given return precautions. Departure - Departure Disposition: 01 Home, Self Care Clinical Impression: Abdominal pain Condition: Good Record reviewed to determine appropriate education?: Yes Instructions: ED Abdominal Pain Female Non-Specific Abdominal Pain Prescriptions: HYDROcod/ACETAM 5/325 [Ruffin 5/325] 1 - 2 tab PO Q6H PRN #15 tablet PRN Reason: Pain Comments: Scription sent electronically to [facility] in [place]. As discussed I think you have a mild case of diverticulitis. I want you to do a clear liquid diet for the next 36 hours, okay to drink water, clear juices, clear broth, coffee etc. After that go to a low residue diet for another day, this can include any of the clear liquids, but can also include white rice, white bread, yogurt. In the long run it would be best to eat a very high fiber diet though with lots of fruits and vegetables and water. Return if worsening or if not better in the next 24 hours. Follow-up with your doctor regardless. I am prescribing a short course of narcotic pain medication for you. These are potentially dangerous and addictive medications that should be used carefully. These medications may constipate you. Take an [id number]-zoaackl stool softener (docusate) twice daily with plenty of water while taking these medications. If you go 24 hours without a bowel movement, take [id number]-[id number] miralax, per package instructions. Do not drink or drive while taking these medications. If you received narcotic or sedating medications while in the emergency department, do not drive for 24 hours. Store this medication in a safe, secure place and out of reach of children. It is a violation of federal law to give or sell this medication to another person or to use in a manner other than prescribed. The ED will not refill narcotic prescriptions, including prescriptions lost or stolen. To dispose of unwanted medications: 1. [facility] at [address] in [place] has a medication drop box. They accept prescription medications (in pill form) Saturday through Saturday 9:00 a.m. to 5:00 p.m. 2. The [facility] accepts prescription medications (in pill form only) for disposal year round. Call for more information. 3. Contact the [facility] for the next [facility] sponsored prescription drug collection event. , [phone], or [phone]; Note that many narcotic pain relievers also contain Tylenol/acetaminophen. Please ensure that your total dose of acetaminophen from all sources does not exceed 3 g (3000 mg) per day.
[2021-10-03 14:41] LABS: ALBUMIN/GLOBULIN RATIO 1.1 (1.0-2.2); BILIRUBIN,TOTAL 0.4 mg/dL (0.2-1.0); CALCIUM 9.6 mg/dL (8.5-10.3); CREATININE 0.7 mg/dL (0.4-1.0); POTASSIUM 4.3 mmol/L (3.5-5.0); TOTAL PROTEIN 7.5 g/dL (6.7-8.2)
[2021-10-03] MEDS ORDERED: KETOROLAC 30 MG/ML VIAL IVP STA (14:55)
[2021-10-03] MEDS ORDERED: ONDANSETRON 4 MG/2 ML VIAL IVP STA (14:55)
[2021-10-03] MEDS ORDERED: IOVERSOL 320 100 ML VIAL IVP ONE ×2 (15:41→21:28)
--- NOTE | 2021-10-03 16:28 | CT Report ---
PROCEDURE: Abdomen/Pelvis W INDICATIONS: Left-sided abdominal pain CONTRAST: IV CONTRAST: Optiray 320 ml: 100 PO CONTRAST: *NO PO CONTRAST TECHNIQUE: After the administration of intravenous contrast, 5 mm thick sections acquired from the diaphragms to the symphysis. 5 mm thick coronal and sagittal reformats were acquired. For radiation dose reducti on, the following was used: automated exposure control, adjustment of mA and/or kV according to macy ent size. COMPARISON: CT abdomen pelvis 02/24/2019. FINDINGS: Image quality: Excellent. ABDOMEN: Lung bases: There is an indistinct groundglass opacity posteriorly in the right lower lobe likely rep resenting atelectasis. Heart size is normal. Solid organs: Evaluation of the liver demonstrates no focal hepatic lesions. Gallbladder is surgical ly absent. Biliary system is non dilated. The spleen is normal in size. Pancreas enhances normally w ithout peripancreatic fat stranding or fluid collections. No adrenal nodules. Kidneys demonstrate n o hydronephrosis. Peritoneum and bowel: Bowel loops demonstrate normal wall thickness and caliber. There are surgical sutures along the cecum likely reflecting prior appendectomy. No pericecal inflammatory changes. The re is diverticulosis throughout the colon without acute diverticulitis. No free fluid or air. Nodes and vessels: No retroperitoneal or mesenteric adenopathy by size criteria. Aorta and inferior vena cava are normal in size. Miscellaneous: No ventral hernias. PELVIS: Genitourinary: Bladder wall thickness is normal. Miscellaneous: No inguinal hernias or adenopathy. Bones: No suspicious bony lesions. No vertebral body compression fractures. IMPRESSION: 1. No definite acute intra-abdominal abnormality. 2. Colonic diverticulosis without acute diverticulitis. 3. No evidence of obstructive uropathy. Reviewed by: Francois Aragon MD on 10/03/2021 4:26 PM PST Approved by: Francois Aragon MD on 10/03/2021 4:26 PM PST Station ID: [id number]
[2021-10-03 17:05] VITALS: BP 116/70
== END 2021-10-03 17:05 | disposition home or self-care (01) ==
LOC: ED 13:34
DX: R10.12 Left upper quadrant pain (principal); R10.13 Epigastric pain
CPT/HCPCS: 36415; 74177; 80053; 81003; 81025; 83690; 85025; 96374; 99283; 99284; A9270; Q9967; 81001; 87086

== ENCOUNTER 2021-10-05 10:06 | Emergency (ER) | payer OTHER ==
--- NOTE | 2021-10-05 11:35 | ED Physician Documentation ---
PD HPI NVD - Stated complaint Stated Complaint: ABD PX,VOMITING,NAUSEA - Chief complaint Chief Complaint: Abd Pain - History obtained from History obtained from: Patient - History of Present Illness Timing - onset: How many days ago (few) Timing - duration: Days (few) Timing - details: Gradual onset, Still present (increased the past day) Associated symptoms: Abdominal pain (LLQ pain for few days. Had some nausea with it, but increased nausea the past day. Had taken hydrocodone Rx for pain the past day as well.) Contributing factors: No: Recent antibiotics Similar symptoms before: Has not had sx before Recently seen: Emergency Dept (couple days ago for similar and CT showed lots diverticula and stool. Presumed early diverticulitis by symptoms. Rx with clear liquids, hydrocodone. To return if worse. She is feeling worse.) Review of Systems Constitutional: denies: Fever, Chills Nose: denies: Rhinorrhea / runny nose, Congestion Throat: denies: Sore throat Respiratory: denies: Cough GI: reports: Abdominal Pain, Nausea, Vomiting. 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: Ovarian cysts : None Psych: Anxiety Musculoskeletal: None Derm: None - Past Surgical History Past Surgical History: No General: Cholecystectomy HEENT: Tonsil/Adenoidectomy, Other - Present Medications Home Medications: Ambulatory Orders Medication Instructions Recorded Confirmed Citalopram [CeleXA] 1 tab QPM 02/16/21 02/16/21 Amoxicillin 500 mg PO BID #19 06/25/21 Levetiracetam [Keppra] 2.5 tab PO QDBREAKFAST 06/25/21 06/25/21 Levetiracetam [Keppra] 3 tab PO QPM 06/25/21 06/25/21 HYDROcod/ACETAM 5/325 [[place] 5/325] 1 - 2 tab PO Q6H PRN #15 tablet 10/03/21 Naproxen 250 mg PO TID 5 Days #15 tablet 10/05/21 Ondansetron Odt [Zofran] 4 mg TL Q6H PRN #20 tablet 10/05/21 cephALEXin [Keflex] 500 mg PO TID 5 Days #15 cap 10/05/21 metroNIDAZOLE [Flagyl] 250 mg PO TID 5 Days #15 tablet 10/05/21 traMADol [Ultram] 50 mg PO Q6H PRN #12 tablet 10/05/21 - Allergies Allergies/Adverse Reactions: Allergies Allergy/AdvReac Type Severity Reaction Status Date / Time apple Allergy Severe Anaphylaxis Verified 10/05/21 10:47 melon Allergy Severe Anaphylaxis Verified 10/05/21 10:47 latex Allergy Hives Verified 10/05/21 10:47 Raisin [Raisins] Allergy Anaphylaxis Verified 10/05/21 10:47 grape AdvReac Severe Anaphylaxis Verified 10/05/21 10:47 acetaminophen AdvReac Anaphylaxis Verified 10/05/21 10:47 azithromycin AdvReac See Note Verified 10/05/21 10:47 diphenhydramine AdvReac Anaphylaxis Verified 10/05/21 10:47 oxycodone AdvReac Anaphylaxis Verified 10/05/21 10:47 tramadol AdvReac Anaphylaxis Verified 10/05/21 10:47 - Social History Does the pt smoke?: No Smoking Status: Never smoker Does the pt drink ETOH?: No - Family History Family history: reports: Other (no FH of diverticulitis, ulcerative colitis, crohns that she is aware. ) - Immunizations Immunizations are current?: Yes - POLST Patient has POLST: No POLST Status: Full Code PD ED PE NORMAL - Vitals Vital signs reviewed: Yes - General General: Alert and oriented X 3, Well developed/nourished - HEENT HEENT: Pharynx benign - Neck Neck: Supple, no meningeal sign, No adenopathy - Cardiac Cardiac: RRR, No murmur - Respiratory Respiratory: Clear bilaterally - Abdomen Abdomen: Soft, Non distended, No organomegaly, Other (obese. Tender LLQ with local guarding. No percussion tenderness. No referred tender from other areas. ). No: Normal bowel sounds (decreased) - Female Female : Deferred - Rectal Rectal: Deferred - Back Back: No CVA TTP - Derm Derm: Normal color, Warm and dry Results - Vitals Vitals: Vital Signs - 24 hr 10/05/21 10/05/21 10/05/21 10:44 12:23 14:00 Temperature 36.5 C 98.1 C H 36.5 C Heart Rate 88 71 76 Respiratory 15 18 14 Rate Blood Pressure 138/82 H 146/78 H 142/64 H O2 Saturation 98 96 100 10/05/21 14:05 Temperature Heart Rate 78 Respiratory 18 Rate Blood Pressure 110/62 O2 Saturation 97 Oxygen O2 Source Room air - Labs Labs: Laboratory Tests 10/05/21 10/05/21 10/05/21 11:40 11:40 11:40 WBC 10.6 RBC 4.68 Hgb 12.9 Hct 40.4 MCV 86.3 MCH 27.6 MCHC 31.9 L RDW 12.4 Plt Count 259 MPV 10.2 Neut # (Auto) 7.0 H Lymph # (Auto) 2.9 [place] # (Auto) 0.5 Eos # (Auto) 0.2 Baso # (Auto) 0.0 Absolute Nucleated RBC 0.00 Nucleated RBC % 0.0 Sodium 136 Potassium 3.8 Chloride 103 Carbon Dioxide 26 Anion Gap 7.0 BUN 7 Creatinine 0.5 Estimated GFR (MDRD) 149 Glucose 89 Calcium 9.1 Total Bilirubin 1.0 AST 17 ALT 20 Alkaline Phosphatase 85 Total Protein 8.0 Albumin 4.0 Globulin 4.0 Albumin/Globulin Ratio 1.0 Lipase 31 Urine Color LIGHT YELLOW Urine Clarity CLEAR Urine pH 7.0 Ur Specific [place] 1.010 Urine Protein NEGATIVE Urine Glucose (UA) NEGATIVE Urine Ketones NEGATIVE Urine Occult Blood NEGATIVE Urine Nitrite NEGATIVE Urine Bilirubin NEGATIVE Urine Urobilinogen 0.2 (NORMAL) Ur Leukocyte Esterase TRACE H Urine RBC 0-5 Urine WBC 0-3 Ur Squamous Epith Cells FEW Squamous Urine Bacteria Few Ur Microscopic Review INDICATED Urine Culture Comments INDICATED Urine HCG, Qual NEGATIVE PD MEDICAL DECISION MAKING - ED course Complexity details: reviewed old records (visit 2 days ago), re-evaluated patient (feeling improved with fluids/meds. Not nauseated now. grinder tender LLQ. No peritoneal/general tenderness. I do not feel repeat CT needed. will change from hydrocodone. She states itching allergy to oxycodone. She states she can take Tramadol. ), considered differential (ED visit 2 days ago with Dx of possible early diverticulitis. Increased pain and nausea. Nausea could relate to hydrocodone Rx. No fever. Exam not peritoneal but has local tenderness lower left. Presume more clinically relevant colitis/diverticulitis and can augment Rx. Change from hydrocodone.), d/w patient Departure - Departure Disposition: 01 Home, Self Care Clinical Impression: Left lower quadrant abdominal pain, Diverticulitis of gastrointestinal tract Condition: Stable Record reviewed to determine appropriate education?: Yes Instructions: ED Abdominal Pain Female Non-Specific Abdominal Pain Follow-Up: ALISA Cano [Provider Group] Prescriptions: metroNIDAZOLE [Flagyl] 250 mg PO TID 5 Days #15 tablet cephALEXin [Keflex] 500 mg PO TID 5 Days #15 cap Naproxen 250 mg PO TID 5 Days #15 tablet traMADol [Ultram] 50 mg PO Q6H PRN #12 tablet PRN Reason: Pain Ondansetron Odt [Zofran] 4 mg TL Q6H PRN #20 tablet PRN Reason: Nausea / Vomiting Comments: Your vomiting now with the nausea may relate to a side effect of the hydrocodone. You could also be just the progression of your intestinal symptoms. I would have you hold the hydrocodone. Change to Tylenol 4 times a day over the next several days. To that add tramadol if needed for worse pain. This is intended short-term. Use ondansetron if needed for nausea every 4-6 hours. Given the suspicion for diverticulitis on your recent visit and now increasing symptoms, it is reasonable to add an anti-inflammatory and also short course antibiotics. [facility] [address] I am prescribing a short course of narcotic pain medication for you. These are potentially dangerous and addictive medications that should be used carefully. These medications may constipate you. Take an [id number] stool softener such as docusate twice daily with plenty of water while taking these medications. If you go 24 hours without a bowel movement, take [id number] MiraLAX, per package instructions. Do not drink or drive while taking these medications. If you received narcotic or sedating medications while in the emergency department do not drive for 24 hours. Store this medication in a safe, secure place and out of reach of children. It is a violation of federal law to give or sell this medication to another person or to use in a manner other than prescribed. The ED will not refill narcotic prescriptions, including prescriptions lost or stolen. You can dispose of unwanted medications at the [facility]'s office or at several pharmacies such as [facility]. Discharge Date/Time: 10/05/21 14:06
[2021-10-05 11:49] LABS: BILIRUBIN,URINE NEGATIVE (NEGATIVE); GLUCOSE, URINE (UA) NEGATIVE (NEGATIVE); KETONES,URINE (UA) NEGATIVE (NEGATIVE); LEUKOCYTE ESTERASE, URINE TRACE (NEGATIVE); NITRITE,URINE NEGATIVE (NEGATIVE); OCCULT BLOOD,URINE NEGATIVE (NEGATIVE); PROTEIN,URINE NEGATIVE (NEGATIVE); UROBILINOGEN,URINE 0.2 (NORMAL) E.U./dL (NORMAL)
[2021-10-05 11:50] LABS: BASOPHILS % (AUTO) 0.1 %; EOSINOPHILS # (AUTO) 0.2 10^3/uL (0.0-0.7); EOSINOPHILS % (AUTO) 1.7 %; HCT - HEMATOCRIT 40.4 % (37.0-47.0); HGB - HEMOGLOBIN 12.9 g/dL (12.0-16.0); LYMPHOCYTES # (AUTO) 2.9 10^3/uL (1.5-3.5); LYMPHOCYTES % (AUTO) 26.8 %; MEAN CORPUSCULAR HEMOGLOBIN 27.6 pg (27.0-31.0); MEAN CORPUSCULAR HGB CONC 31.9 g/dL (32.0-36.0); MEAN CORPUSCULAR VOLUME 86.3 fL (81.0-99.0); MEAN PLATELET VOLUME 10.2 fL (7.9-10.8); MONOCYTES # (AUTO) 0.5 10^3/uL (0.0-1.0); MONOCYTES % (AUTO) 5.1 %; NEUTROPHILS % (AUTO) 65.9 %; PLT - PLATELET COUNT 259 10^3/uL (130-450); RED BLOOD COUNT 4.68 10^6/uL (4.20-5.40); RED CELL DISTRIBUTION WIDTH 12.4 % (12.0-15.0); WHITE BLOOD COUNT 10.6 x10^3/uL (4.8-10.8)
[2021-10-05 11:53] LABS: CLARITY,URINE CLEAR (CLEAR); HCG UR QUAL NEGATIVE
[2021-10-05] MEDS ORDERED: ONDANSETRON 4 MG/2 ML VIAL IVP STA (11:53)
[2021-10-05] MEDS ORDERED: cefTRIAXone 1 GM VIAL IVP STA (11:53)
[2021-10-05] MEDS ORDERED: HYDROmorphone 1 MG/ML CARPUJECT IVP STA (11:53)
[2021-10-05] MEDS ORDERED: SODIUM CHLORIDE 0.9% 1,000 ML IV STA (11:53)
[2021-10-05] MEDS ORDERED: KETOROLAC 30 MG/ML VIAL IVP STA (11:53)
[2021-10-05 12:01] LABS: CALCIUM 9.1 mg/dL (8.5-10.3); CREATININE 0.5 mg/dL (0.4-1.0); POTASSIUM 3.8 mmol/L (3.5-5.0)
[2021-10-05 12:06] LABS: BACTERIA,URINE Few /HPF (None Seen); RBC,URINE 0-5 /HPF (0-5); SQUAMOUS EPITHELIAL CELL,UR FEW Squamous (<= Few); WBC,URINE 0-3 /HPF (0-5)
[2021-10-05 14:07] VITALS: BP 110/62
== END 2021-10-05 14:06 | disposition home or self-care (01) ==
LOC: ED 10:06
DX: K57.92 Diverticulitis of intestine, part unspecified, without perforation or abscess without bleeding (principal); I10 Essential (primary) hypertension; Z88.5 Allergy status to narcotic agent
CPT/HCPCS: 36415; 80053; 81001; 81025; 83690; 85025; 87086; 96374; 96375; 99284; J1170; 81003

== ENCOUNTER 2022-10-10 07:49 | Outpatient (CLI) | payer OTHER ==
--- NOTE | 2022-10-10 10:41 | MRI Report ---
PROCEDURE: CERVICAL SPINE WO INDICATIONS: CERVICALGIA TECHNIQUE: Noncontrast sagittal T1 spin echo and T2 fast spin echo, sagittal STIR, foraminal oblique sagittal T2 fast spin echo, and axial gradient echo or T2 fast spin echo through the cervical spine. COMPARISON: None. FINDINGS: Image quality: Motion artifact is noted. Alignment and Curvature: There is overall straightening of the normal cervical lordosis. No signifi cant AP alignment abnormality can be seen. Bone Marrow: Marrow demonstrates normal overall signal. Spinal Cord: Visualized spinal cord has normal size and signal. No cerebellar tonsillar herniation. Paraspinous Soft Tissues: No paravertebral masses. Prevertebral soft tissues are normal in thicknes s. C2-C3: Normal in appearance. C3-C4: Normal in appearance. C4-C5: Normal in appearance. C5-C6: Normal in appearance. C6-C7: Normal in appearance. C7-T1: Normal in appearance. IMPRESSION: Straightening of the normal cervical lordosis is seen, which is commonly observed in patients with mu scular spasm. The significant disc pathology, central canal narrowing, or neuroforaminal narrowing can be seen. Reviewed by: Sivakumar Henderson MD on 10/10/2022 9:40 AM [facility] Approved by: Sivakumar Henderson MD on 10/10/2022 9:40 AM [facility] Station ID: [id number]
== END 2022-10-10 07:50 | disposition home or self-care (01) ==
LOC: DI 07:49
PROVIDERS: ATTEND Physician Assistant
DX: M54.2 Cervicalgia (principal)

== ENCOUNTER 2022-10-11 10:21 | Emergency (ER) | payer OTHER ==
[2022-10-11 11:01] VITALS: BP 138/109
[2022-10-11] MEDS ORDERED: diazePAM 5 MG TABLET PO STA (12:21)
--- NOTE | 2022-10-11 12:44 | ED Physician Documentation ---
History of Present Illness - Stated complaint Stated Complaint: NECK/HEAD PX - Chief complaint Chief Complaint: General - History obtained from History obtained from: Patient - History of Present Illness Timing: How many weeks ago (4) Pain level max: 8 Pain level now: 8 - Additonal information Additional information: Patient is a 27-year-old female who presents to the emergency department for weeks worth of neck pain. Worse with movement, better with rest. No fevers. No chills. No trauma. Had an MRI yesterday that shows straightening of the cervical lordosis. No disc herniation or bony injuries. No fever. No chills. Worse with movement, better with rest. She saw her doctor yesterday and was placed on Flexeril and Motrin. Took Flexeril once without relief. 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 REMOVER: Ovarian cysts : None Psych: Anxiety Musculoskeletal: None Derm: None - Past Surgical History Past Surgical History: No General: Cholecystectomy HEENT: Tonsil/Adenoidectomy, Other - Present Medications Home Medications: Ambulatory Orders Medication Instructions Recorded Confirmed Citalopram [CeleXA] 1 tab QPM 02/16/21 02/16/21 Amoxicillin 500 mg PO BID #19 06/25/21 Levetiracetam [Keppra] 2.5 tab PO QDBREAKFAST 06/25/21 06/25/21 Levetiracetam [Keppra] 3 tab PO QPM 06/25/21 06/25/21 HYDROcod/ACETAM 5/325 [[place] 5/325] 1 - 2 tab PO Q6H PRN #15 tablet 10/03/21 Naproxen 250 mg PO TID 5 Days #15 tablet 10/05/21 Ondansetron Odt [Zofran] 4 mg TL Q6H PRN #20 tablet 10/05/21 cephALEXin [Keflex] 500 mg PO TID 5 Days #15 cap 10/05/21 metroNIDAZOLE [Flagyl] 250 mg PO TID 5 Days #15 tablet 10/05/21 traMADol [Ultram] 50 mg PO Q6H PRN #12 tablet 10/05/21 diazePAM [Valium] 5 - 10 mg PO TID PRN #20 tablet 10/11/22 - Allergies Allergies/Adverse Reactions: Allergies Allergy/AdvReac Type Severity Reaction Status Date / Time apple Allergy Severe Anaphylaxis Verified 10/05/21 10:47 melon Allergy Severe Anaphylaxis Verified 10/05/21 10:47 latex Allergy Hives Verified 10/05/21 10:47 Raisin [Raisins] Allergy Anaphylaxis Verified 10/05/21 10:47 grape AdvReac Severe Anaphylaxis Verified 10/05/21 10:47 acetaminophen AdvReac Anaphylaxis Verified 10/05/21 10:47 azithromycin AdvReac See Note Verified 10/05/21 10:47 diphenhydramine AdvReac Anaphylaxis Verified 10/05/21 10:47 oxycodone AdvReac Anaphylaxis Verified 10/05/21 10:47 tramadol AdvReac Anaphylaxis Verified 10/05/21 10:47 - Social History Does the pt smoke?: No Smoking Status: Never smoker Does the pt drink ETOH?: No - Immunizations Immunizations are current?: Yes - POLST Patient has POLST: No POLST Status: Full Code PD ED PE NORMAL - Vitals Vital signs reviewed: Yes - General General: Alert and oriented X 3, No acute distress, Well developed/nourished - HEENT HEENT: PERRL, Ears normal, Moist mucous membranes, Pharynx benign - Neck Neck: Supple, no meningeal sign, No bony TTP, Other (Mild paraspinal cervical spasm. No midline tenderness to palpation or percussion. No step-off or deformity.) - Cardiac Cardiac: RRR, Strong equal pulses - Respiratory Respiratory: No respiratory distress, Clear bilaterally - Abdomen Abdomen: Soft, Non tender, Non distended - Back Back: No spinal TTP - Derm Derm: Warm and dry - Extremities Extremities: No edema, No calf tenderness / cord - Neuro Neuro: Alert and oriented X 3, newscast director 2-12 intact, No motor deficit, No sensory deficit, Normal speech, Other (Normal cerebellar testing) Eye Opening: Spontaneous Motor: Obeys Commands Verbal: Oriented GCS Score: 15 - Psych Psych: Normal mood, Normal affect Results - Vitals Vitals: Vital Signs - 24 hr 10/11/22 10/11/22 10:53 13:11 Temperature 37.1 C Heart Rate 97 79 Respiratory 16 16 Rate Blood Pressure 138/109 H O2 Saturation 98 97 Oxygen O2 Source Room air - Labs Labs: Laboratory Tests 10/11/22 12:33 Last Dose Date 10/11/22 Last Dose Time 0600 [place] 0.95 PD MEDICAL DECISION MAKING - ED course Complexity details: reviewed old records, re-evaluated patient, considered differential (No meningitis, no encephalitis, no carotid artery dissection. No vertebral artery dissection.), d/w patient ED course: Patient feels much better after Valium. Moving her neck much more freely. [place] level is nontoxic. We will prescribe Valium for home and have her follow-up with her doctor for further care. She has multiple medication allergies, therefore no other pain medication was given. Neurovascularly intact. Patient counseled regarding signs and symptoms for which I believe and urgent re-evaluation would be necessary. Patient with good understanding of and agreement to plan and is comfortable going home at this time This document was made in part using voice recognition software. While efforts are made to proofread this document, sound alike and grammatical errors may occur. Departure - Departure Disposition: 01 Home, Self Care Clinical Impression: Cervicalgia, Neck muscle spasm Condition: Good Instructions: ED Spasm Neck No Injury Follow-Up: ADE BECKWITH, DO [Primary Care Provider] - Prescriptions: diazePAM [Valium] 5 - 10 mg PO TID PRN #20 tablet PRN Reason: Spasms Comments: We will change your Flexeril to Valium as this seems to work better for you. Please continue to gently stretch her neck at home this will help to decrease the spasming in your neck and help with the overall pain. Please follow-up with your doctor for further care. Your prescription was sent to [facility] in [place] Discharge Date/Time: 10/11/22 14:22
[2022-10-11 13:18] LABS: LITHIUM 0.95 mmol/L
[2022-10-11] MEDS ORDERED: DEXAMETHASONE 10 MG/ML VIAL PO STA (13:34)
[2022-10-11] MEDS ORDERED: CHERRY SYRUP 10 ML UDC PO ONE (13:55)
== END 2022-10-11 14:22 | disposition home or self-care (01) ==
LOC: ED 10:21
DX: M54.2 Cervicalgia (principal); M62.838 Other muscle spasm
CPT/HCPCS: 36415; 80178; 99282; 99283; A9270

== ENCOUNTER 2022-11-19 12:09 | Outpatient (CLI) | payer OTHER | END 2022-11-19 12:10 | disposition critical access hospital (66) | LOC: EMS 12:09 | DX: R07.9 Chest pain, unspecified (principal); M25.512 Pain in left shoulder | CPT/HCPCS: A0425; A0427 ==

== ENCOUNTER 2022-11-19 12:35 | Emergency (ER) | payer OTHER ==
--- OUTSIDE RECORDS SUMMARY | 2022-11-19 13:01 | EXTERNAL MEDICAL SUMMARY RPT | Continuity of Care Document ---
:1995 Author Organization [facility] Address [address] [place] [address] Phone Care Team Providers Name Role Phone Debbie Joiner Unavailable Unavailable Allergies and Intolerances date description facility type (no date) acetaminophen [facility] (unknown) (no date) latex [facility] (unknown) (no date) oxycodone [facility] (unknown) Encounters No information. Functional Status No information. Immunizations No information. Medications date description facility 2022-10-15 00:00 Diazepam [facility] 2022-10-15 00:00 Ibuprofen [facility] 2022-10-15 00:00 Zimmerman Carbonate [facility] 2022-10-15 00:00 Zimmerman Carbonate [facility] 2022-10-15 00:00 Levetiracetam [facility] 2022-10-15 00:00 Cyclobenzaprine [facility] Problems date description facility 2022-10-15 00:00 Headache [facility] 2022-10-15 00:00 Seizure [facility] Procedures date description facility 2022-10-15 00:00 Computed tomography of head or brain [facility] contrast Results/Labs test date author facility value unit interpret ation Result panel 1 (unknown) (no date) ([facility] Result panel 2 (unknown) (no date) (unknown[facility]) Result panel 3 (unknown) (no date) (unknown[facility]) Result panel 4 (unknown) (no date) (unknown[facility]) Result panel 5 (unknown) (no date) (unknown[facility]) Result panel 6 (unknown) (no date) (unknown[facility]) Result panel 7 (unknown) (no date) (unknown[facility]) Result panel 8 (unknown) (no date) (unknown[facility]) Result panel 9 (unknown) (no date) (unknown[facility]) Result panel 10 (unknown) (no date) (unknown[facility]) Result panel 11 (unknown) (no date) (unknown[facility]) Result panel 12 (unknown) (no date) (unknown[facility]) Result panel 13 (unknown) (no date) (unknown[facility]) Result panel 14 (unknown) (no date) (unknown[facility]) Result panel 15 (unknown) (no date) (unknown[facility]) Result panel 16 (unknown) (no date) (unknown[facility]) Result panel 17 (unknown) (no date) (unknown[facility]) Result panel 18 (unknown) (no date) (unknown[facility]) Result panel 19 (unknown) (no date) (unknown[facility]) Result panel 20 (unknown) (no date) (unknown[facility]) Result panel 21 (unknown) (no date) (unknown[facility]) Result panel 22 (unknown) (no date) (unknown[facility]) Result panel 23 (unknown) (no date) (unknown[facility]) Result panel 24 (unknown) (no date) (unknown[facility]) Result panel 25 (unknown) (no date) (unknown[facility]) Result panel 26 (unknown) (no date) (unknown[facility]) Result panel 27 (unknown) (no date) (unknown[facility]) Result panel 28 (unknown) (no date) (unknown[facility]) Result panel 29 (unknown) (no date) (unknown[facility]) Result panel 30 (unknown) (no date) (unknown[facility]) Result panel 31 (unknown) (no date) (unknown[facility]) Result panel 32 (unknown) (no date) (unknown[facility]) Result panel 33 (unknown) (no date) (unknown[facility]) Result panel 34 (unknown) (no date) (unknown[facility]) Result panel 35 (unknown) (no date) (unknown[facility]) Result panel 36 (unknown) (no date) (unknown[facility]) Result panel 37 (unknown) (no date) (unknown[facility]) Result panel 38 (unknown) (no date) (unknown[facility]) Result panel 39 (unknown) (no date) (unknown[facility]) Result panel 40 (unknown) (no date) (unknown[facility]) Result panel 41 (unknown) (no date) (unknown[facility]) Result panel 42 (unknown) (no date) (unknown[facility]) Result panel 43 (unknown) (no date) (unknown[facility]) Result panel 44 (unknown) (no date) (unknown[facility]) Result panel 45 (unknown) (no date) (unknown[facility]) Result panel 46 (unknown) (no date) (unknown[facility]) Result panel 47 (unknown) (no date) (unknown[facility]) Result panel 48 (unknown) (no date) (unknown[facility]) Result panel 49 (unknown) (no date) (unknown[facility]) Result panel 50 (unknown) (no date) (unknown[facility]) Result panel 51 (unknown) (no date) (unknown[facility]) Result panel 52 (unknown) (no date) (unknown[facility]) Result panel 53 (unknown) (no date) (unknown[facility]) Result panel 54 (unknown) (no date) (unknown[facility]) Result panel 55 (unknown) (no date) (unknown[facility]) Result panel 56 (unknown) (no date) (unknown[facility]) Result panel 57 (unknown) (no date) (unknown[facility]) Result panel 58 (unknown) (no date) (unknown[facility]) Result panel 59 (unknown) (no date) (unknown[facility]) Result panel 60 (unknown) (no date) (unknown[facility]) Result panel 61 (unknown) (no date) (unknown[facility]) Result panel 62 (unknown) (no date) (unknown[facility]) Result panel 63 (unknown) (no date) (unknown[facility]) Result panel 64 (unknown) (no date) (unknown[facility]) Result panel 65 (unknown) (no date) (unknown[facility]) Result panel 66 (unknown) (no date) (unknown[facility]) Result panel 67 (unknown) (no date) (unknown[facility]) Result panel 68 (unknown) (no date) (unknown[facility]) Result panel 69 (unknown) (no date) (unknown[facility]) Result panel 70 (unknown) (no date) (unknown[facility]) Result panel 71 (unknown) (no date) (unknown[facility]) Result panel 72 (unknown) (no date) (unknown[facility]) Result panel 73 (unknown) (no date) (unknown[facility]) Result panel 74 (unknown) (no date) (unknown[facility]) Result panel 75 (unknown) (no date) (unknown[facility]) Result panel 76 (unknown) (no date) (unknown[facility] Result panel 77 (unknown) (no date) (unknown) [facility] unknown) Result panel 78 (unknown) (no date) (unknown) [facility] unknown) Result panel 79 (unknown) (no (unknown) (unknown) (no value) ([facility] date) unknown) (unknown) (no (unknown) (unknown) 0.5 % (unkno wn) date) (unknown) (no (unknown) (unknown) [id number] (units (unkn own) date) unknown) (unknown) (no (unknown) (unknown) 1.8 % (unkno wn) date) (unknown) (no (unknown) (unknown) 10 mg PO TID PRN (units (unknown) date) (Reason: Muscle unknown) Spasm) (unknown) (no (unknown) (unknown) 100 /ul (unkno wn) date) (unknown) (no (unknown) (unknown) 10/15/22 14:18 (units (unknown) date) unknown) (unknown) (no (unknown) (unknown) 10/15/22 14:34 (units (unknown) date) unknown) (unknown) (no (unknown) (unknown) 10/15/22 (units (unkno wn) date) unknown) (unknown) (no (unknown) (unknown) 13.1 % (unkno wn) date) (unknown) (no (unknown) (unknown) 13.9 g/dl (unkno wn) date) (unknown) (no (unknown) (unknown) 13:53 (units (unkno wn) date) unknown) (unknown) (no (unknown) (unknown) 14.3 % (unkno wn) date) (unknown) (no (unknown) (unknown) 11434 /ul (unkno wn) date) (unknown) (no (unknown) (unknown) 19.7 x10 3/ul (unkno wn) date) (unknown) (no (unknown) (unknown) 2.5 tabs q am and (units (unknown) date) 3 tabs q pm unknown) (unknown) (no (unknown) (unknown) 27.4 pg (unkno wn) date) (unknown) (no (unknown) (unknown) 2800 /ul (unkno wn) date) (unknown) (no (unknown) (unknown) 295 x10 3/ul (unkno wn) date) (unknown) (no (unknown) (unknown) 3.9 % (unkno wn) date) (unknown) (no (unknown) (unknown) 300 mg PO BID (units ( unknown) date) unknown) (unknown) (no (unknown) (unknown) 300 /ul (unkno wn) date) (unknown) (no (unknown) (unknown) 33.5 % (unkno wn) date) (unknown) (no (unknown) (unknown) 41.6 % (unkno wn) date) (unknown) (no (unknown) (unknown) 450 mg PO BID (units ( unknown) date) unknown) (unknown) (no (unknown) (unknown) 450+300mg = 750 (units (unknown) date) mg bid unknown) (unknown) (no (unknown) (unknown) 5 - 10 mg PO TID (units (unknown) date) PRN (Reason: unknown) Muscle Spasm) (unknown) (no (unknown) (unknown) 5.09 x10 6/ul (unkno wn) date) (unknown) (no (unknown) (unknown) 79.5 % (unkno wn) date) (unknown) (no (unknown) (unknown) 800 mg PO Q6HR (units (unknown) date) PRN (Reason: Pain unknown) (Scale Score 4-6)) (unknown) (no (unknown) (unknown) 800 /ul (unkno wn) date) (unknown) (no (unknown) (unknown) 81.7 fl (unkno wn) date) (unknown) (no (unknown) (unknown) Age/Sex: 27 / F (units (unknown) date) unknown) (unknown) (no (unknown) (unknown) Allergies (units (unkn own) date) unknown) (unknown) (no (unknown) (unknown) Allergy/AdvReac (units (unknown) date) Type Severity unknown) Reaction Status Date / Time (unknown) (no (unknown) (unknown) Blood Pressure (units (unknown) date) 141/82 H 10/15/22 unknown) 13:53 (unknown) (no (unknown) (unknown) Blood Pressure (units (unknown) date) 141/82 H unknown) (unknown) (no (unknown) (unknown) Chief Complaint: (units (unknown) date) Seizure unknown) (unknown) (no (unknown) (unknown) Complete Blood (units (unknown) date) Count AUTO DIFF unknown) Stat (unknown) (no (unknown) (unknown) Comprehensive (units ( unknown) date) Metabolic Panel unknown) Stat (unknown) (no (unknown) (unknown) Course (units (unkno wn) date) unknown) (unknown) (no (unknown) (unknown) Covid-19 + FLU (units (unknown) date) A/B + RSV - PCR unknown) Stat (unknown) (no (unknown) (unknown) : 1995 (units (unknown) date) Acct:[id number] unknown) (unknown) (no (unknown) (unknown) Date of Service: (units (unknown) date) 10/15/22 unknown) (unknown) (no (unknown) (unknown) Departure (units (unkn own) date) unknown) (unknown) (no (unknown) (unknown) Discharge Plan (units (unknown) date) unknown) (unknown) (no (unknown) (unknown) Discontinued (units (u nknown) date) Medications unknown) (unknown) (no (unknown) (unknown) ED Orders (units (unkn own) date) unknown) (unknown) (no (unknown) (unknown) ER Physician: (units ( unknown) date) Edmar Butler unknown) D.O. (unknown) (no (unknown) (unknown) Emergency Report (units (unknown) date) unknown) (unknown) (no (unknown) (unknown) Exam (units (unkno wn) date) unknown) (unknown) (no (unknown) (unknown) General (units (unkno wn) date) unknown) (unknown) (no (unknown) (unknown) HPI - Seizure (units ( unknown) date) unknown) (unknown) (no (unknown) (unknown) Home Medications (units (unknown) date) unknown) (unknown) (no (unknown) (unknown) Initial Vital (units ( unknown) date) Signs unknown) (unknown) (no (unknown) (unknown) Initial Vital (units ( unknown) date) Signs: unknown) (unknown) (no (unknown) (unknown) [facility] (units (unknown) date) [address] unknown) [place] [address] (unknown) (no (unknown) (unknown) Lab Data (units (unkno wn) date) unknown) (unknown) (no (unknown) (unknown) Label Comments: (units (unknown) date) unknown) (unknown) (no (unknown) (unknown) Lipase Stat (units (un known) date) unknown) (unknown) (no (unknown) (unknown) MDM - Seizure (units ( unknown) date) unknown) (unknown) (no (unknown) (unknown) Medication (units (unk nown) date) Instructions unknown) Recorded Confirmed (unknown) (no (unknown) (unknown) Mode of arrival: (units (unknown) date) Wheelchair unknown) (unknown) (no (unknown) (unknown) No Action (units (unkn own) date) unknown) (unknown) (no (unknown) (unknown) Ondansetron HCl (units (unknown) date) (Ondansetron 4 unknown) Mg/2 Ml Inj) 4 mg IV NOW ONE (unknown) (no (unknown) (unknown) Ordered: (units (unkno wn) date) unknown) (unknown) (no (unknown) (unknown) Orders (units (unkno wn) date) unknown) (unknown) (no (unknown) (unknown) Oxygen Delivery (units (unknown) date) Method 10/15/22 unknown) 13:53 (unknown) (no (unknown) (unknown) Oxygen Delivery (units (unknown) date) Method Room Air unknown) (unknown) (no (unknown) (unknown) Patient History (units (unknown) date) unknown) (unknown) (no (unknown) (unknown) Patient: (units (unkno wn) date) GarciaJoshuaMaxx K unknown) MR#: M (unknown) (no (unknown) (unknown) Prescriptions: (units (unknown) date) unknown) (unknown) (no (unknown) (unknown) Provider,Herve (units (unknown) date) ALISA [Primary Care unknown) Provider] (unknown) (no (unknown) (unknown) Pulse Oximetry (units (unknown) date) 100 10/15/22 13:53 unknown) (unknown) (no (unknown) (unknown) Pulse Oximetry (units (unknown) date) 100 unknown) (unknown) (no (unknown) (unknown) Pulse Rate 103 H (units (unknown) date) 10/15/22 13:53 unknown) (unknown) (no (unknown) (unknown) Pulse Rate 103 H (units (unknown) date) unknown) (unknown) (no (unknown) (unknown) Referrals: (units (unk nown) date) unknown) (unknown) (no (unknown) (unknown) Related Data (units (u nknown) date) unknown) (unknown) (no (unknown) (unknown) Respiratory Rate (units (unknown) date) 20 10/15/22 13:53 unknown) (unknown) (no (unknown) (unknown) Respiratory Rate (units (unknown) date) 20 unknown) (unknown) (no (unknown) (unknown) Result diagrams: (units (unknown) date) unknown) (unknown) (no (unknown) (unknown) Rx Instructions: (units (unknown) date) unknown) (unknown) (no (unknown) (unknown) Score 4-6) (units (unk nown) date) unknown) (unknown) (no (unknown) (unknown) See Rx (units (unkno wn) date) Instructions unknown) .ROUTE .COMPLEX (unknown) (no (unknown) (unknown) Signed By: (units (unk nown) date) unknown) (unknown) (no (unknown) (unknown) Smoking Status: (units (unknown) date) Never smoker unknown) (unknown) (no (unknown) (unknown) Social History (units (unknown) date) (Reviewed 06/15/20 unknown) @ 14:05 by Zaheer Talbert MD) (unknown) (no (unknown) (unknown) Sodium Chloride (units (unknown) date) (Normal Saline unknown) 0.9%) 1,000 mls @ 1,000 mls/hr IV BOLUS ONE (unknown) (no (unknown) (unknown) Source: patient (units (unknown) date) unknown) (unknown) (no (unknown) (unknown) Stated Complaint: (units (unknown) date) seizure/severe unknown) headache/ (unknown) (no (unknown) (unknown) Stop: 10/15/22 (units (unknown) date) 14:21 unknown) (unknown) (no (unknown) (unknown) Stop: 10/15/22 (units (unknown) date) 15:20 unknown) (unknown) (no (unknown) (unknown) Substance Use (units ( unknown) date) Type: does not use unknown) (unknown) (no (unknown) (unknown) TAKE 1 TABLET BY (units (unknown) date) MOUTH TWICE DAILY unknown) (unknown) (no (unknown) (unknown) TAKE 1 TO 2 (units (un known) date) TABLETS BY MOUTH unknown) THREE TIMES DAILY NEEDED FOR SPASMS (unknown) (no (unknown) (unknown) Temperature 99.1 (units (unknown) date) F 10/15/22 13:53 unknown) (unknown) (no (unknown) (unknown) Temperature 99.1 (units (unknown) date) F unknown) (unknown) (no (unknown) (unknown) Time Seen by (units (u nknown) date) Provider: 10/15/22 unknown) 14:30 (unknown) (no (unknown) (unknown) Vital Signs - 8 (units (unknown) date) hr unknown) (unknown) (no (unknown) (unknown) Vital Signs (units (un known) date) unknown) (unknown) (no (unknown) (unknown) Vital signs: (units (u nknown) date) unknown) (unknown) (no (unknown) (unknown) [Embedded Image (units (unknown) date) Not Available] unknown) (unknown) (no (unknown) (unknown) acetaminophen (units ( unknown) date) [From TYLENOL] unknown) Allergy Unknown Verified 10/15/22 14:21 (unknown) (no (unknown) (unknown) cyclobenzaprine (units (unknown) date) 10 mg tablet 10 mg unknown) PO TID PRN Muscle Spasm 10/15/22 10/15/22 (unknown) (no (unknown) (unknown) cyclobenzaprine (units (unknown) date) 10 mg tablet unknown) (unknown) (no (unknown) (unknown) diazepam 5 mg (units ( unknown) date) tablet 5 - 10 mg unknown) PO TID PRN Muscle Spasm 10/15/22 10/15/22 (unknown) (no (unknown) (unknown) diazepam 5 mg (units ( unknown) date) tablet unknown) (unknown) (no (unknown) (unknown) ibuprofen 800 mg (units (unknown) date) tablet 800 mg PO unknown) Q6HR PRN Pain (Scale 10/15/22 10/15/22 (unknown) (no (unknown) (unknown) ibuprofen 800 mg (units (unknown) date) tablet unknown) (unknown) (no (unknown) (unknown) latex [LATEX] (units ( unknown) date) Allergy Unknown unknown) Verified 10/15/22 14:21 (unknown) (no (unknown) (unknown) levetiracetam 750 (units (unknown) date) mg tablet See Rx unknown) Instructions .Route .COMPLEX 10/15/22 (unknown) (no (unknown) (unknown) levetiracetam 750 (units (unknown) date) mg tablet unknown) (unknown) (no (unknown) (unknown) lithium carbonate (units (unknown) date) 300 mg 300 mg PO unknown) BID 10/15/22 10/15/22 (unknown) (no (unknown) (unknown) lithium carbonate (units (unknown) date) 300 mg tablet unknown) extended release (unknown) (no (unknown) (unknown) lithium carbonate (units (unknown) date) 450 mg 450 mg PO unknown) BID 10/15/22 10/15/22 (unknown) (no (unknown) (unknown) lithium carbonate (units (unknown) date) 450 mg tablet unknown) extended release (unknown) (no (unknown) (unknown) oxycodone (units (unkn own) date) [OXYCODONE] unknown) Allergy Unknown Verified 10/15/22 14:21 (unknown) (no (unknown) (unknown) tablet,extended (units (unknown) date) release unknown) Result panel 80 (unknown) (no date) (unknown) (unknown) Flu A (units (unkn own) NEGATIVE unknown) (unknown) (no date) (unknown) (unknown) Flu A (units (unkn own) NEGATIVE unknown) (unknown) (no date) (unknown) (unknown) Flu B (units (unkn own) NEGATIVE unknown) (unknown) (no date) (unknown) (unknown) Negative (units (unkn own) unknown) (unknown) (no date) (unknown) (unknown) Negative (units (unkn own) unknown) Result panel 81 (unknown) (no (unknown) (unknown) (no value) (units (unk nown) date) unknown) (unknown) (no (unknown) (unknown) [id number] (units (unkn own) date) unknown) (unknown) (no (unknown) (unknown) 10 mg PO TID PRN (units (unknown) date) (Reason: Muscle unknown) Spasm) (unknown) (no (unknown) (unknown) 10/15/22 10/15/22 (units (unknown) date) 10/15/22 unknown) Range/Units (unknown) (no (unknown) (unknown) 10/15/22 14:34 (units (unknown) date) unknown) (unknown) (no (unknown) (unknown) 10/15/22 14:41 (units (unknown) date) unknown) (unknown) (no (unknown) (unknown) 10/15/22 15:10 (units (unknown) date) unknown) (unknown) (no (unknown) (unknown) 10/15/22 (units (unkno wn) date) unknown) (unknown) (no (unknown) (unknown) [address] [place] [address] (units (unknown) date) unknown) (unknown) (no (unknown) (unknown) 13:53 (units (unkno wn) date) unknown) (unknown) (no (unknown) (unknown) 14:34 14:34 15:10 (units (unknown) date) unknown) (unknown) (no (unknown) (unknown) 2.5 tabs q am and (units (unknown) date) 3 tabs q pm unknown) (unknown) (no (unknown) (unknown) 300 mg PO BID (units ( unknown) date) unknown) (unknown) (no (unknown) (unknown) 450 mg PO BID (units ( unknown) date) unknown) (unknown) (no (unknown) (unknown) 450+300mg = 750 (units (unknown) date) mg bid unknown) (unknown) (no (unknown) (unknown) 5 - 10 mg PO TID (units (unknown) date) PRN (Reason: unknown) Muscle Spasm) (unknown) (no (unknown) (unknown) 800 mg PO Q6HR (units (unknown) date) PRN (Reason: Pain unknown) (Scale Score 4-6)) (unknown) (no (unknown) (unknown) ? (units (unkno wn) date) unknown) (unknown) (no (unknown) (unknown) ALT 44 H (<35) (units (unknown) date) IU/L unknown) (unknown) (no (unknown) (unknown) AST 25 (14-36) (units (unknown) date) IU/L unknown) (unknown) (no (unknown) (unknown) Accession Number: (units (unknown) date) [id number] ?? unknown) (unknown) (no (unknown) (unknown) Acct:[id number] (units (unknown) date) unknown) (unknown) (no (unknown) (unknown) Age/Sex: 27 / F (units (unknown) date) unknown) (unknown) (no (unknown) (unknown) Albumin 4.4 (units (un known) date) (3.5-5.0) g/dL unknown) (unknown) (no (unknown) (unknown) Albumin/Globulin (units (unknown) date) Ratio 1.1 unknown) (1.0-2.8) (unknown) (no (unknown) (unknown) Alkaline (units (unkno wn) date) Phosphatase 89 unknown) (38-126) U/L (unknown) (no (unknown) (unknown) Allergies (units (unkn own) date) unknown) (unknown) (no (unknown) (unknown) Allergy/AdvReac (units (unknown) date) Type Severity unknown) Reaction Status Date / Time (unknown) (no (unknown) (unknown) [place] (units ( unknown) date) [id number] unknown) (unknown) (no (unknown) (unknown) Approved by: (units (u nknown) date) kelvin Garcia M.D. on 10/15/2022 at 14:27? (unknown) (no (unknown) (unknown) Attestation: I (units (unknown) date) reviewed the unknown) patient's lab results. (unknown) (no (unknown) (unknown) BUN 9 (7-17) (units (u nknown) date) mg/dL unknown) (unknown) (no (unknown) (unknown) BUN/Creatinine (units (unknown) date) Ratio 13.8 (6-22) unknown) (unknown) (no (unknown) (unknown) Baso # (Auto) 100 (units (unknown) date) (0-100) /uL unknown) (unknown) (no (unknown) (unknown) Baso % (Auto) 0.5 (units (unknown) date) (0-2) % unknown) (unknown) (no (unknown) (unknown) Bedside Urine (units ( unknown) date) Bilirubin - unknown) Negative (unknown) (no (unknown) (unknown) Bedside Urine (units ( unknown) date) Glucose Negative unknown) (unknown) (no (unknown) (unknown) Bedside Urine (units ( unknown) date) Ketone - Negative unknown) (unknown) (no (unknown) (unknown) Bedside Urine (units ( unknown) date) Leukocytes - unknown) Negative (unknown) (no (unknown) (unknown) Bedside Urine (units ( unknown) date) Occult Blood - unknown) Negative (unknown) (no (unknown) (unknown) Bedside Urine (units ( unknown) date) Protein - Negative unknown) (unknown) (no (unknown) (unknown) Bedside Urine (units ( unknown) date) Urobilinogen - unknown) Negative (unknown) (no (unknown) (unknown) Bedside Urine pH (units (unknown) date) 7.5 unknown) (unknown) (no (unknown) (unknown) Blood Pressure (units (unknown) date) 141/82 H 10/15/22 unknown) 13:53 (unknown) (no (unknown) (unknown) Blood Pressure (units (unknown) date) 141/82 H unknown) (unknown) (no (unknown) (unknown) Brain:? No (units (unk nown) date) midline shift.? No unknown) intracranial masses or hemorrhage.? Barrett-white (unknown) (no (unknown) (unknown) COMPARISON:? (units (u nknown) date) None. unknown) (unknown) (no (unknown) (unknown) CSF spaces:? (units (u nknown) date) Basal cisterns are unknown) patent.? No extra-axial fluid collections.? (unknown) (no (unknown) (unknown) CT Scan Report (units (unknown) date) unknown) (unknown) (no (unknown) (unknown) CT head/brain wo (units (unknown) date) con Stat unknown) (unknown) (no (unknown) (unknown) CT scan - head: (units (unknown) date) unknown) (unknown) (no (unknown) (unknown) Calcium 9.2 (units (un known) date) (8.4-10.2) mg/dL unknown) (unknown) (no (unknown) (unknown) Carbon Dioxide 28 (units (unknown) date) (22-32) mmol/L unknown) (unknown) (no (unknown) (unknown) Chief Complaint: (units (unknown) date) Seizure unknown) (unknown) (no (unknown) (unknown) Chloride 102 (units (u nknown) date) (98-107) mmol/L unknown) (unknown) (no (unknown) (unknown) Complete Blood (units (unknown) date) Count AUTO DIFF unknown) Stat (unknown) (no (unknown) (unknown) Comprehensive (units ( unknown) date) Metabolic Panel unknown) Stat (unknown) (no (unknown) (unknown) Course (units (unkno wn) date) unknown) (unknown) (no (unknown) (unknown) Covid-19 + FLU (units (unknown) date) A/B + RSV - PCR unknown) Stat (unknown) (no (unknown) (unknown) Creatinine 0.65 (units (unknown) date) (0.52-1.04) mg/dL unknown) (unknown) (no (unknown) (unknown) : 1995 (units (unknown) date) Acct:[id number] unknown) (unknown) (no (unknown) (unknown) : 1995 (units (unknown) date) unknown) (unknown) (no (unknown) (unknown) Date of Service: (units (unknown) date) 10/15/22 unknown) (unknown) (no (unknown) (unknown) Departure (units (unkn own) date) unknown) (unknown) (no (unknown) (unknown) Dictated by: (units (u nknown) date) kelvin Garcia M.D. on 10/15/2022 at 14:26 ? ? (unknown) (no (unknown) (unknown) Discharge Plan (units (unknown) date) unknown) (unknown) (no (unknown) (unknown) Discontinued (units (u nknown) date) Medications unknown) (unknown) (no (unknown) (unknown) Documented By: (units (unknown) date) KLS unknown) (unknown) (no (unknown) (unknown) ED Orders (units (unkn own) date) unknown) (unknown) (no (unknown) (unknown) ER Physician: (units ( unknown) date) Edmar Butler unknown) D.O. (unknown) (no (unknown) (unknown) Emergency Report (units (unknown) date) unknown) (unknown) (no (unknown) (unknown) Eos # (Auto) 300 (units (unknown) date) (0-450) /uL unknown) (unknown) (no (unknown) (unknown) Eos % (Auto) 1.8 (units (unknown) date) L (2-4) % unknown) (unknown) (no (unknown) (unknown) Esterase (units (unkno wn) date) unknown) (unknown) (no (unknown) (unknown) Estimated GFR > (units (unknown) date) 60 (>60) mL/min unknown) (unknown) (no (unknown) (unknown) Exam (units (unkno wn) date) unknown) (unknown) (no (unknown) (unknown) FINDINGS:? (units (unk nown) date) unknown) (unknown) (no (unknown) (unknown) General (units (unkno wn) date) unknown) (unknown) (no (unknown) (unknown) Globulin 3.9 (units (u nknown) date) (1.7-4.1) g/dL unknown) (unknown) (no (unknown) (unknown) Glucose 94 (units (unk nown) date) (70-100) mg/dL unknown) (unknown) (no (unknown) (unknown) HPI - Seizure (units ( unknown) date) unknown) (unknown) (no (unknown) (unknown) Hct 41.6 (36-46) (units (unknown) date) % unknown) (unknown) (no (unknown) (unknown) Hgb 13.9 (units (unkno wn) date) (12.0-16.0) g/dL unknown) (unknown) (no (unknown) (unknown) Home Medications (units (unknown) date) unknown) (unknown) (no (unknown) (unknown) IMPRESSION:? No (units (unknown) date) significant unknown) noncontrast head CT abnormality can be seen. (unknown) (no (unknown) (unknown) INDICATIONS:? (units ( unknown) date) seizure, headache, unknown) hx of brain cyst (unknown) (no (unknown) (unknown) Image quality:? (units (unknown) date) Excellent.? unknown) (unknown) (no (unknown) (unknown) Imaging Data (units (u nknown) date) unknown) (unknown) (no (unknown) (unknown) Influenza A (units (un known) date) (RT-PCR) Flu a unknown) negative (NEGATIVE) (unknown) (no (unknown) (unknown) Influenza B (units (un known) date) (RT-PCR) Flu b unknown) negative (NEGATIVE) (unknown) (no (unknown) (unknown) Initial Vital (units ( unknown) date) Signs unknown) (unknown) (no (unknown) (unknown) Initial Vital (units ( unknown) date) Signs: unknown) (unknown) (no (unknown) (unknown) [facility] (units (unknown) date) [address] [place] [address] unknown) [place] [address] (unknown) (no (unknown) (unknown) [facility] (units (unknown) date) unknown) (unknown) (no (unknown) (unknown) Ketorolac (units (unkn own) date) Tromethamine unknown) (Ketorolac 30 Mg/Ml Vial) 30 mg IV NOW ONE (unknown) (no (unknown) (unknown) Lab Data (units (unkno wn) date) unknown) (unknown) (no (unknown) (unknown) Lab Results (units (un known) date) unknown) (unknown) (no (unknown) (unknown) Label Comments: (units (unknown) date) unknown) (unknown) (no (unknown) (unknown) Labs: (units (unkno wn) date) unknown) (unknown) (no (unknown) (unknown) Last Admin: (units (un known) date) 10/15/22 14:53 unknown) Dose: 1,000 mls/hr (unknown) (no (unknown) (unknown) Last Admin: (units (un known) date) 10/15/22 14:53 unknown) Dose: 30 mg (unknown) (no (unknown) (unknown) Last Admin: (units (un known) date) 10/15/22 14:54 unknown) Dose: 4 mg (unknown) (no (unknown) (unknown) Lipase 55 (units (unkn own) date) (23-300) U/L unknown) (unknown) (no (unknown) (unknown) Lipase Stat (units (un known) date) unknown) (unknown) (no (unknown) (unknown) Loc: ED (units (unkno wn) date) unknown) (unknown) (no (unknown) (unknown) Lymph # (Auto) (units (unknown) date) 2800 (9915-6192) unknown) /uL (unknown) (no (unknown) (unknown) Lymph % (Auto) (units (unknown) date) 14.3 L (25-40) % unknown) (unknown) (no (unknown) (unknown) MCH 27.4 (26-34) (units (unknown) date) PG unknown) (unknown) (no (unknown) (unknown) MCHC 33.5 (30-36) (units (unknown) date) % unknown) (unknown) (no (unknown) (unknown) MCV 81.7 (80-100) (units (unknown) date) fL unknown) (unknown) (no (unknown) (unknown) MDM - Seizure (units ( unknown) date) unknown) (unknown) (no (unknown) (unknown) MR#: [id number] (units (unknown) date) unknown) (unknown) (no (unknown) (unknown) Medication (units (unk nown) date) Instructions unknown) Recorded Confirmed (unknown) (no (unknown) (unknown) Mode of arrival: (units (unknown) date) Wheelchair unknown) (unknown) (no (unknown) (unknown) Daniels # (Auto) 800 (units (unknown) date) (0-900) /uL unknown) (unknown) (no (unknown) (unknown) Daniels % (Auto) 3.9 (units (unknown) date) (3-14) % unknown) (unknown) (no (unknown) (unknown) Neut # (Auto) (units ( unknown) date) 39641 H unknown) (0771-2850) /uL (unknown) (no (unknown) (unknown) Neut % (Auto) (units ( unknown) date) 79.5 H (50-75) % unknown) (unknown) (no (unknown) (unknown) No Action (units (unkn own) date) unknown) (unknown) (no (unknown) (unknown) No acute (units (unkno wn) date) intracranial unknown) hemorrhage is seen.? (unknown) (no (unknown) (unknown) Noncontrast 4.5 (units (unknown) date) mm thick angled unknown) axial sections acquired from the foramen magnum (unknown) (no (unknown) (unknown) Ondansetron HCl (units (unknown) date) (Ondansetron 4 unknown) Mg/2 Ml Inj) 4 mg IV NOW ONE (unknown) (no (unknown) (unknown) Ordered: (units (unkno wn) date) unknown) (unknown) (no (unknown) (unknown) Ordering (units (unkno wn) date) Provider: unknown) Edmar Butler D.O. (unknown) (no (unknown) (unknown) Orders (units (unkno wn) date) unknown) (unknown) (no (unknown) (unknown) Oxygen Delivery (units (unknown) date) Method 10/15/22 unknown) 13:53 (unknown) (no (unknown) (unknown) Oxygen Delivery (units (unknown) date) Method Room Air unknown) (unknown) (no (unknown) (unknown) PROCEDURE:? CT (units (unknown) date) HEAD/BRAIN WO CON unknown) (unknown) (no (unknown) (unknown) Patient History (units (unknown) date) unknown) (unknown) (no (unknown) (unknown) Patient: (units (unkno wn) date) Maxx Garcia unknown) MR#: M (unknown) (no (unknown) (unknown) Patient: (units (unkno wn) date) GarciaMaxx dejesus unknown) (unknown) (no (unknown) (unknown) Plt Count 295 (units ( unknown) date) (150-400) X103/uL unknown) (unknown) (no (unknown) (unknown) Point of Care (units ( unknown) date) Testing unknown) (unknown) (no (unknown) (unknown) Potassium 3.8 (units ( unknown) date) (3.4-5.1) mmol/L unknown) (unknown) (no (unknown) (unknown) Test (units (unknown) date) Results Negative unknown) (unknown) (no (unknown) (unknown) Prescriptions: (units (unknown) date) unknown) (unknown) (no (unknown) (unknown) Procedure: CT (units ( unknown) date) head/brain wo con unknown) (unknown) (no (unknown) (unknown) Provider,Herve (units (unknown) date) ALISA [Primary Care unknown) Provider] (unknown) (no (unknown) (unknown) Pulse Oximetry (units (unknown) date) 100 10/15/22 13:53 unknown) (unknown) (no (unknown) (unknown) Pulse Oximetry (units (unknown) date) 100 unknown) (unknown) (no (unknown) (unknown) Pulse Rate 103 H (units (unknown) date) 10/15/22 13:53 unknown) (unknown) (no (unknown) (unknown) Pulse Rate 103 H (units (unknown) date) unknown) (unknown) (no (unknown) (unknown) RBC 5.09 (units (unkno wn) date) (4.0-5.2) X106/uL unknown) (unknown) (no (unknown) (unknown) RDW 13.1 (units (unkno wn) date) (11.6-14.8) % unknown) (unknown) (no (unknown) (unknown) RSV (PCR) (units (unkn own) date) Negative unknown) (Negative) (unknown) (no (unknown) (unknown) Radiologist's (units ( unknown) date) Impression: unknown) (unknown) (no (unknown) (unknown) Referrals: (units (unk nown) date) unknown) (unknown) (no (unknown) (unknown) Related Data (units (u nknown) date) unknown) (unknown) (no (unknown) (unknown) Respiratory Rate (units (unknown) date) 20 10/15/22 13:53 unknown) (unknown) (no (unknown) (unknown) Respiratory Rate (units (unknown) date) 20 unknown) (unknown) (no (unknown) (unknown) Result diagrams: (units (unknown) date) unknown) (unknown) (no (unknown) (unknown) Right-sided (units (un known) date) paranasal sinus unknown) disease is partially seen. (unknown) (no (unknown) (unknown) Rx Instructions: (units (unknown) date) unknown) (unknown) (no (unknown) (unknown) SARS-CoV-2 (PCR) (units (unknown) date) Negative unknown) (Negative) (unknown) (no (unknown) (unknown) Score 4-6) (units (unk nown) date) unknown) (unknown) (no (unknown) (unknown) See Rx (units (unkno wn) date) Instructions unknown) .ROUTE .COMPLEX (unknown) (no (unknown) (unknown) Signed By: (units (unk nown) date) unknown) (unknown) (no (unknown) (unknown) Signed (units (unkno wn) date) unknown) (unknown) (no (unknown) (unknown) Sinuses:? There is (units (unknown) date) partial unknown) visualization of opacification of the right maxillary (unknown) (no (unknown) (unknown) Skull and face:? (units (unknown) date) Calvarium and unknown) visualized facial bones are intact, without (unknown) (no (unknown) (unknown) Smoking Status: (units (unknown) date) Never smoker unknown) (unknown) (no (unknown) (unknown) Social History (units (unknown) date) (Reviewed 06/15/20 unknown) @ 14:05 by Zaheer Talbert MD) (unknown) (no (unknown) (unknown) Sodium 137 (units (unk nown) date) (137-145) mmol/L unknown) (unknown) (no (unknown) (unknown) Sodium Chloride (units (unknown) date) (Normal Saline unknown) 0.9%) 1,000 mls @ 1,000 mls/hr IV BOLUS ONE (unknown) (no (unknown) (unknown) Source: patient (units (unknown) date) unknown) (unknown) (no (unknown) (unknown) Stated Complaint: (units (unknown) date) seizure/severe unknown) headache/ (unknown) (no (unknown) (unknown) Stop: 10/15/22 (units (unknown) date) 14:21 unknown) (unknown) (no (unknown) (unknown) Stop: 10/15/22 (units (unknown) date) 14:42 unknown) (unknown) (no (unknown) (unknown) Stop: 10/15/22 (units (unknown) date) 15:20 unknown) (unknown) (no (unknown) (unknown) Substance Use (units ( unknown) date) Type: does not use unknown) (unknown) (no (unknown) (unknown) TAKE 1 TABLET BY (units (unknown) date) MOUTH TWICE DAILY unknown) (unknown) (no (unknown) (unknown) TAKE 1 TO 2 (units (un known) date) TABLETS BY MOUTH unknown) THREE TIMES DAILY NEEDED FOR SPASMS (unknown) (no (unknown) (unknown) TECHNIQUE:? (units (un known) date) unknown) (unknown) (no (unknown) (unknown) Temperature 99.1 (units (unknown) date) F 10/15/22 13:53 unknown) (unknown) (no (unknown) (unknown) Temperature 99.1 (units (unknown) date) F unknown) (unknown) (no (unknown) (unknown) Time Seen by (units (u nknown) date) Provider: 10/15/22 unknown) 14:30 (unknown) (no (unknown) (unknown) Total Bilirubin (units (unknown) date) 0.5 (0.2-1.3) unknown) mg/dL (unknown) (no (unknown) (unknown) Total Protein 8.3 (units (unknown) date) H (6.3-8.2) g/dL unknown) (unknown) (no (unknown) (unknown) Urine Dip (units (unkn own) date) unknown) (unknown) (no (unknown) (unknown) Urine Specific (units (unknown) date) [place] 1.010 unknown) (unknown) (no (unknown) (unknown) [place] (units (unk nown) date) unknown) (unknown) (no (unknown) (unknown) Vital Signs - 8 (units (unknown) date) hr unknown) (unknown) (no (unknown) (unknown) Vital Signs (units (un known) date) unknown) (unknown) (no (unknown) (unknown) Vital signs: (units (u nknown) date) unknown) (unknown) (no (unknown) (unknown) WBC 19.7 H (units (unk nown) date) (4.5-11.0) X103/uL unknown) (unknown) (no (unknown) (unknown) Within the (units (unk nown) date) posterior left unknown) ethmoid air cells, there is [id number] (unknown) (no (unknown) (unknown) [Embedded Image (units (unknown) date) Not Available] unknown) (unknown) (no (unknown) (unknown) acetaminophen (units ( unknown) date) [From TYLENOL] unknown) Allergy Unknown Verified 10/15/22 14:21 (unknown) (no (unknown) (unknown) are normal in (units ( unknown) date) size and shape.? unknown) (unknown) (no (unknown) (unknown) cyclobenzaprine (units (unknown) date) 10 mg tablet 10 mg unknown) PO TID PRN Muscle Spasm 10/15/22 10/15/22 (unknown) (no (unknown) (unknown) cyclobenzaprine (units (unknown) date) 10 mg tablet unknown) (unknown) (no (unknown) (unknown) diazepam 5 mg (units ( unknown) date) tablet 5 - 10 mg unknown) PO TID PRN Muscle Spasm 10/15/22 10/15/22 (unknown) (no (unknown) (unknown) diazepam 5 mg (units ( unknown) date) tablet unknown) (unknown) (no (unknown) (unknown) following (units (unkn own) date) unknown) (unknown) (no (unknown) (unknown) ibuprofen 800 mg (units (unknown) date) tablet 800 mg PO unknown) Q6HR PRN Pain (Scale 10/15/22 10/15/22 (unknown) (no (unknown) (unknown) ibuprofen 800 mg (units (unknown) date) tablet unknown) (unknown) (no (unknown) (unknown) interface is (units (un known) date) normal.? Mild unknown) cystic fullness can be seen within the pineal region, (unknown) (no (unknown) (unknown) latex [LATEX] (units ( unknown) date) Allergy Unknown unknown) Verified 10/15/22 14:21 (unknown) (no (unknown) (unknown) lesions.? (units (unkn own) date) unknown) (unknown) (no (unknown) (unknown) levetiracetam 750 (units (unknown) date) mg tablet See Rx unknown) Instructions .Route .COMPLEX 10/15/22 (unknown) (no (unknown) (unknown) levetiracetam 750 (units (unknown) date) mg tablet unknown) (unknown) (no (unknown) (unknown) lithium carbonate (units (unknown) date) 300 mg 300 mg PO unknown) BID 10/15/22 10/15/22 (unknown) (no (unknown) (unknown) lithium carbonate (units (unknown) date) 300 mg tablet unknown) extended release (unknown) (no (unknown) (unknown) lithium carbonate (units (unknown) date) 450 mg 450 mg PO unknown) BID 10/15/22 10/15/22 (unknown) (no (unknown) (unknown) lithium carbonate (units (unknown) date) 450 mg tablet unknown) extended release (unknown) (no (unknown) (unknown) matter (units (unkno wn) date) unknown) (unknown) (no (unknown) (unknown) opacification (units ( unknown) date) unknown) (unknown) (no (unknown) (unknown) oxycodone (units (unkn own) date) [OXYCODONE] unknown) Allergy Unknown Verified 10/15/22 14:21 (unknown) (no (unknown) (unknown) patient (units (unkno wn) date) unknown) (unknown) (no (unknown) (unknown) seen. No abnormal (units (unknown) date) fluid is seen unknown) within the mastoid air cells. (unknown) (no (unknown) (unknown) sinus.? (units (unkno wn) date) unknown) (unknown) (no (unknown) (unknown) size.? (units (unkno wn) date) unknown) (unknown) (no (unknown) (unknown) suspicious (units (unk nown) date) unknown) (unknown) (no (unknown) (unknown) tablet,extended (units (unknown) date) release unknown) (unknown) (no (unknown) (unknown) to the (units (unkno wn) date) unknown) (unknown) (no (unknown) (unknown) vertex, with (units (u nknown) date) coronal and unknown) sagittal reformats.? For radiation dose reduction, the (unknown) (no (unknown) (unknown) was used:? (units (unk nown) date) automated exposure unknown) control, adjustment of mA and/or kV according to (unknown) (no (unknown) (unknown) without a focal (units (unknown) date) cyst identified on unknown) these images. (unknown) (no (unknown) (unknown) yet (units (unkno wn) date) unknown) Social History date description facility 2022-10-15 00:00 Never smoked tobacco (finding) [facility] Vital Signs date measurement value units 2022-10-15 00:00 BMI 43.2 kg/m2 2022-10-15 00:00 BP_diastolic 74 mmHg 2022-10-15 00:00 BP_systolic 132 mmHg 2022-10-15 00:00 heart_rate 92 /min 2022-10-15 00:00 height_metric 165.1 cm 2022-10-15 00:00 height_standard 65 in 2022-10-15 00:00 o2_saturation 100 % 2022-10-15 00:00 respiration_rate 12 /min 2022-10-15 00:00 temperature_metric 37.28 C 2022-10-15 00:00 temperature_standard 99.1 F 2022-10-15 00:00 weight_metric 117.93 kg 2022-10-15 00:00 weight_standard 259.99 lb
[2022-11-19 13:09] LABS: BASOPHILS % (AUTO) 0.3 %; EOSINOPHILS # (AUTO) 0.4 10^3/uL (0.0-0.7); HCT - HEMATOCRIT 41.3 % (37.0-47.0); HGB - HEMOGLOBIN 13.1 g/dL (12.0-16.0); MEAN CORPUSCULAR HGB CONC 31.7 g/dL (32.0-36.0); MEAN PLATELET VOLUME 10.1 fL (7.9-10.8); MONOCYTES # (AUTO) 0.7 10^3/uL (0.0-1.0); NEUTROPHILS % (AUTO) 68.4 %; PLT - PLATELET COUNT 275 10^3/uL (130-450); RED BLOOD COUNT 4.86 10^6/uL (4.20-5.40); RED CELL DISTRIBUTION WIDTH 12.3 % (12.0-15.0); WHITE BLOOD COUNT 13.2 x10^3/uL (4.8-10.8)
--- NOTE | 2022-11-19 13:24 | XRAY Report ---
PROCEDURE: Chest 1 View X-Ray INDICATIONS: Chest pain TECHNIQUE: One view of the chest was acquired. COMPARISON: 06/25/2021 FINDINGS: Surgical changes and devices: None. Lungs and pleura: An incomplete inspiratory result is noted, with low lung volumes and crowding of t he vascular markings. No focal infiltrates are seen. No large pneumothorax or large pleural effusion can be seen. Mediastinum: Mediastinal contours appear normal. Heart size is normal. Bones and chest wall: No suspicious bony lesions. Overlying soft tissues appear unremarkable. IMPRESSION: Portable chest within normal limits for age. Reviewed by: Sivakumar Henderson MD on 11/19/2022 12:[address] [facility] Approved by: Sivakumar Henderson MD on 11/19/2022 12:[address] [facility] Station ID: [id number]
[2022-11-19 13:30] LABS: ALBUMIN 3.7 g/dL (3.2-5.5); ALBUMIN/GLOBULIN RATIO 1.2 (1.0-2.2); CALCIUM 9.3 mg/dL (8.5-10.3); CREATININE 0.6 mg/dL (0.4-1.0); POTASSIUM 3.8 mmol/L (3.5-5.0); TOTAL PROTEIN 6.9 g/dL (6.7-8.2)
--- NOTE | 2022-11-19 13:30 | ED Physician Documentation ---
PD HPI CHEST PAIN - Stated complaint Stated Complaint: CHEST PAIN - Chief complaint Chief Complaint: Cardiac - History obtained from History obtained from: Patient - History of Present Illness Timing - details: No: Abrupt onset, Gradual onset, Still present, Now resolved, Constant, Intermittant, Waxing and waning, Still present in ED Pain level max: 0 Pain level now: 0 Quality: Pressure, Sharp Location: Substernal Radiation: No: Jaw, Neck, Back, Abdominal, Left upper extremity, Right upper extremity - Additional information Additional information: Patient is a 27-year-old female who presents to the emergency department with chest pain. She states that this started yesterday about 4 PM. Last for few minutes at a time, she states that it "goes away for some time" and then comes back. She states it is a pressure/sharp pain. Nothing seems to make it better or worse. No fever. No cough. No congestion. Did feel mildly short of breath during one of the episodes. No history of blood clots. She is on Keppra and lithium at home. Nonradiating. Had 1 episode of nausea as well. No history of cardiac disease. Review of Systems Constitutional: denies: Fever, Chills GI: denies: Vomiting, Diarrhea Skin: denies: Rash Musculoskeletal: denies: Neck pain, Back pain Neurologic: denies: Headache PD PAST MEDICAL HISTORY - Past Medical History Past Medical History: Yes Cardiovascular: Hypertension, Murmur Respiratory: Asthma, Sleep apnea Neuro: Headaches, Seizure disorder, Other Endocrine/Autoimmune: None GI: GERD, Cholelithiasis LEGAL REFEREE: Ovarian cysts : None Psych: Anxiety Musculoskeletal: None Derm: None - Past Surgical History Past Surgical History: No General: Cholecystectomy HEENT: Tonsil/Adenoidectomy, Other - Present Medications Home Medications: Ambulatory Orders Medication Instructions Recorded Confirmed Citalopram [CeleXA] 1 tab QPM 02/16/21 02/16/21 Amoxicillin 500 mg PO BID #19 06/25/21 Levetiracetam [Keppra] 2.5 tab PO QDBREAKFAST 06/25/21 06/25/21 Levetiracetam [Keppra] 3 tab PO QPM 06/25/21 06/25/21 HYDROcod/ACETAM 5/325 [[place] 5/325] 1 - 2 tab PO Q6H PRN #15 tablet 10/03/21 Naproxen 250 mg PO TID 5 Days #15 tablet 10/05/21 Ondansetron Odt [Zofran] 4 mg TL Q6H PRN #20 tablet 10/05/21 cephALEXin [Keflex] 500 mg PO TID 5 Days #15 cap 10/05/21 metroNIDAZOLE [Flagyl] 250 mg PO TID 5 Days #15 tablet 10/05/21 traMADol [Ultram] 50 mg PO Q6H PRN #12 tablet 10/05/21 diazePAM [Valium] 5 - 10 mg PO TID PRN #20 tablet 10/12/22 - Allergies Allergies/Adverse Reactions: Allergies Allergy/AdvReac Type Severity Reaction Status Date / Time apple Allergy Severe Anaphylaxis Verified 11/19/22 12:48 melon Allergy Severe Anaphylaxis Verified 11/19/22 12:48 latex Allergy Hives Verified 11/19/22 12:48 Raisin [Raisins] Allergy Anaphylaxis Verified 11/19/22 12:48 grape AdvReac Severe Anaphylaxis Verified 11/19/22 12:48 acetaminophen AdvReac Anaphylaxis Verified 11/19/22 12:48 azithromycin AdvReac See Note Verified 11/19/22 12:48 diphenhydramine AdvReac Anaphylaxis Verified 11/19/22 12:48 oxycodone AdvReac Anaphylaxis Verified 11/19/22 12:48 tramadol AdvReac Anaphylaxis Verified 11/19/22 12:48 - Social History Does the pt smoke?: No Smoking Status: Never smoker Does the pt drink ETOH?: No - Immunizations Immunizations are current?: Yes - POLST Patient has POLST: No POLST Status: Full Code PD ED PE NORMAL - Vitals Vital signs reviewed: Yes - General General: Alert and oriented X 3, No acute distress - HEENT HEENT: PERRL, Moist mucous membranes - Neck Neck: Supple, no meningeal sign - Cardiac Cardiac: RRR, No murmur, Strong equal pulses, Other (No tenderness to palpation over the chest wall.) - Respiratory Respiratory: No respiratory distress, Clear bilaterally - Abdomen Abdomen: Soft, Non tender, Non distended - Derm Derm: Warm and dry - Extremities Extremities: No edema, No calf tenderness / cord - Neuro Neuro: Alert and oriented X 3 - Psych Psych: Normal mood, Normal affect Results - Vitals Vitals: Vital Signs - 24 hr 11/19/22 11/19/22 11/19/22 12:41 15:20 15:45 Temperature 98.4 C H Heart Rate 81 82 77 Respiratory 16 14 15 Rate Blood Pressure 149/85 H 139/82 H 122/66 O2 Saturation 98 99 98 Oxygen O2 Source Room air - EKG (time done) 1255 Rate: Rate (enter#) (76) Rhythm: NSR [place]: Normal Intervals: Normal RI QRS: Normal Ischemia: Other (Inverted T wave, V3, V4) Compare to prior EKG: Old EKG unavailable - Labs Labs: Laboratory Tests 11/19/22 11/19/22 11/19/22 13:04 13:04 13:04 WBC 13.2 H RBC 4.86 Hgb 13.1 Hct 41.3 MCV 85.0 MCH 27.0 MCHC 31.7 L RDW 12.3 Plt Count 275 MPV 10.1 Neut # (Auto) 9.0 H Lymph # (Auto) 3.0 Ramsey # (Auto) 0.7 Eos # (Auto) 0.4 Baso # (Auto) 0.0 Absolute Nucleated RBC 0.00 Nucleated RBC % 0.0 Sodium 138 Potassium 3.8 Chloride 102 Carbon Dioxide 29 Anion Gap 7.0 BUN 6 Creatinine 0.6 Estimated GFR (MDRD) 120 Glucose 100 Calcium 9.3 Total Bilirubin 1.0 AST 25 ALT 42 Alkaline Phosphatase 68 Troponin I High Sens < 2.3 L Total Protein 6.9 Albumin 3.7 Globulin 3.2 Albumin/Globulin Ratio 1.2 Lipase 28 Last Dose Date Last Dose Time [place] 11/19/22 13:47 WBC RBC Hgb Hct MCV MCH MCHC RDW Plt Count MPV Neut # (Auto) Lymph # (Auto) Ramsey # (Auto) Eos # (Auto) Baso # (Auto) Absolute Nucleated RBC Nucleated RBC % Sodium Potassium Chloride Carbon Dioxide Anion Gap BUN Creatinine Estimated GFR (MDRD) Glucose Calcium Total Bilirubin AST ALT Alkaline Phosphatase Troponin I High Sens Total Protein Albumin Globulin Albumin/Globulin Ratio Lipase Last Dose Date UNKNOWN Last Dose Time UNKNOWN [place] 1.21 - Rads (name of study) Chest x-ray Radiology: Final report received, See rad report PD Medical Decision Making - ED course Complexity details: reviewed results, re-evaluated patient, considered differential (No ST elevation PA, no aortic dissection, no PE, no tension pneumothorax, no aortic aneurysm), d/w patient ED course: No acute findings on chest x-ray, CBC, troponin, electrolytes. No acute findings on EKG. Patient is eating and drinking without difficulty here. No arrhythmias on telemetry. No calf swelling or tenderness. No evidence of PE. We will have her follow-up with her doctor for further evaluation and care. Patient counseled regarding signs and symptoms for which I believe and urgent re-evaluation would be necessary. Patient with good understanding of and agreement to plan and is comfortable going home at this time This document was made in part using voice recognition software. While efforts are made to proofread this document, sound alike and grammatical errors may occur. Departure - Departure Disposition: Home, Self Care Clinical Impression: Atypical chest pain Chest pain Qualifiers: Chest pain type: unspecified Qualified Code(s): R07.9 - Chest pain, unspecified Condition: Good Instructions: ED Chest Pain Atypical Unkn Cause Follow-Up: your,doctor in 1 week [Other] Comments: Continue your current medications at home. Please follow-up with your doctor for further care. Your chest x-ray, EKG and laboratory testing did not reveal any acute abnormalities today. Use Motrin at home as needed for pain. Return if you worsen Discharge Date/Time: 11/19/22 16:04
[2022-11-19 14:31] LABS: LITHIUM 1.21 mmol/L
[2022-11-19] MEDS ORDERED: KETOROLAC 15 MG/ML VIAL IVP STA (14:42)
[2022-11-19] MEDS ORDERED: PROMETHAZINE INJ 25 MG in SODIUM CHLORIDE 0.9% 50 ML IV STA (14:42)
[2022-11-19 15:45] VITALS: BP 122/66
== END 2022-11-19 16:04 | disposition home or self-care (01) ==
LOC: EDUNIT# → ED 12:35
DX: R07.89 Other chest pain (principal); I10 Essential (primary) hypertension
CPT/HCPCS: 36415; 71045; 80053; 80178; 83690; 84484; 85025; 93005; 96374; 99284; J7040

== ENCOUNTER 2022-12-20 15:28 | Outpatient (CLI) | payer OTHER ==
--- NOTE | 2022-12-20 16:33 | SLEEP CARE CONSULTATION ---
Information from patient questionnaire entered by Heidy Sanchez. I have reviewed and concur with the information entered by Heidy Sanchez. This document represents the service I personally performed and the decisions made by me, Latasha Brannon ARNP. History of Present Illness Service Date and Time: 12/20/2022 1528 Reason for Visit: New patient Chief Complaint: reports: Insomnia, Unrefreshed sleep, Snoring, Observed pauses in breathing, Fatigue, Frequent awakenings at night Date of Onset: MOST OF LIFE Usual bedtime: 7PM Time it takes to fall asleep: 30-60MIN Snores at night: Yes Observed to quit breathing while asleep: Yes Sleeps alone due to snoring: No Number of times waking at night: 5-6 Reasons for waking at night: reports: Choking, Snoring, Gasping for air, Bathroom, Other (UNKNOWN) Toss, Turn, or Twitch while sleeping: Yes Recalls having dreams: No Usually gets out of bed at: 7AM Feels refreshed in the morning: No Morning headache: Yes (4/7 days a week; They last about 90% of day) Sleepy or fatigued during the day: Yes Ever fallen asleep while driving: No Takes day naps: No Dreams during day naps: No Prior sleep studies: No Additional HPI information: I had the pleasure of seeing MAXX FRANCO today regarding the possibility of her having a sleep disorder. Her current complaints are fatigue, frequent night awakenings, observed pauses in breathing, snoring and unrefreshed sleep. She states she does not feel she gets enough sleep despite trying to get more sleep. She states she snores loudly and her has seen her stop breathing in her sleep. She states her mother told her she did the same thing when she was a baby. She states it can take 2 or more hours to fall asleep. She was recently prescribed hydroxyzine that helps her fall asleep in about an hour. She will then wake up on average 5+ times a night. She sometimes does not know what is waking her up, sometimes using the bathroom or is uncomfortable. Sometimes she cannot go back to sleep readily. She states she goes to be around 7 PM and tries to sleep until 7 AM. She states if she does not get enough sleep it causes problems with her epilepsy. She has tried restricting time in bed but this made things worse for her sleep. - Parasomnia Symptoms Ever been unable to move upon waking from sleep: No Walks in sleep: No Talks in sleep: Yes Ever acted out dreams in sleep: No Ever felt weak in the knees when startled or emotional: No Bothered by creepy, crawly, restless sensations in legs: Yes (has been told she has RLS) Problems with memory or concentration: Yes (both, mostly memory) Subjective Initial [place] Sleepiness Scale score: 10 (12/20/22) Past Medical History Past Medical History: reports: Anemia, Anxiety, Asthma, Depression, Mood disorder (cyclothymic disorder), Other (TREMORS, EPILEPSY ) Social History The patient's occupation is a [employer]. Patient is and lives in . Have you smoked in the past 12 months: No Alcohol use: No Caffeine use: Yes Caffeine amount and frequency: 9-6 CANS DAILY Family History Family history of sleep disordered breathing: Yes Family Hx Sleep Apnea: Mother: Snoring, Grandparent: Sleep apnea - Treated Allergies and Home Medications Known drug allergies: Yes (PERCOCET LATEX) Drug allergies reviewed: Yes Home medication list reviewed: Yes Allergy and home medication list: Medications: Hydroxyzine Keppra [place] OTC Advil, prn Review of Systems Weight gain over past 5 years: 15-20 pound fluctuations normal Cardiovascular: denies: high blood pressure Gastrointestinal: reports: nausea, diarrhea, abdominal pain Urinary: reports: frequency Neurological: reports: headaches, seizure, gait or balance problems Psychiatric: reports: anxiety, depression, mood disorder Ear/Nose/Throat: reports: nasal congestion, dry mouth/throat, tonsillectomy, wisdom teeth removed Endocrine: reports: sluggishness, too hot or cold, excessive thirst Musculoskeletal: reports: neck pain, back pain Immunologic: reports: allergies to food or environment Physical Exam Vital signs obtained and entered by: HEIDY Mcneal MA Blood Pressure: 126/72 (LEFT ARM) Cuff size: regular Heart Rate: 91 O2 Saturation: 99 Height: 5 ft 5 in Weight: 258 lb 12.8 oz Body Mass Index: 43.0 BMI Classification: Morbidly Obese Neck circumference: 16.5 Mouth and throat: narrow oropharynx Soft palate: long Hard palate: normal Uvula: normal Uvula visualization: 25% Mallampati Class III Tongue: enlarged in size with teeth ann on lateral edges Tonsils: absent bilaterally Neck: normal w/o lymphadenopathy or thyromegaly Heart: regular rate and rhythm Lungs: clear bilaterally Impression and Plan 1. Suspected Obstructive Sleep Apnea-Hypopnea Syndrome, as suggested by a history of loud and irregular snoring, observed cessation of breath while asleep, gasping or choking in sleep, morning headache, frequent awakening during the night, unrefreshed sleep, cognitive impairment, and excessive daytime sleepiness. Narrow oropharynx and obesity are common predisposing factors for obstructive sleep apnea-hypopnea syndrome. I recommend proceeding to polysomnography to confirm the diagnosis and to assess severity. If the patient has significant sleep disordered breathing, a manual CPAP titration study will also be performed to find the optimal treatment pressure. I informed the patient of what the sleep studies involve and after some discussion, obtained agreement to proceed. The pathophysiology of obstructive sleep apnea-hypopnea syndrome was discussed with the patient and health risks of cardiovascular and cerebrovascular disease if not treated. Risks of drowsy driving discussed in detail and patient advised to avoid long distance driving and to jawbone puller at the first sign of drowsiness. Patient agreed to plan. * Schedule polysomnography * Avoid long distance driving or driving when feeling sleepy. * Avoid alcohol, sedative and muscle relaxant around bedtime. * Attempt to lose weight. * Review instructions provided by trained office staff on how to prepare for the sleep study. * Return for follow-up after sleep study completed. Counseling Topics: Weight loss health impact Visit Type: In Office Time Spent with Patient (minutes): 32 Provider Statement: I spent 100% of the Face to Face Visit with the patient with greater than 50% spent counseling the patient and coordination of care.
[2022-12-20 16:34] VITALS: BP 126/72
== END 2022-12-20 15:29 | disposition home or self-care (01) ==
LOC: SC 15:28
PROVIDERS: ATTEND Nurse Practitioner Family
DX: R06.83 Snoring (principal); G47.8 Other sleep disorders; R06.81 Apnea, not elsewhere classified; G47.10 Hypersomnia, unspecified; R53.83 Other fatigue; F32.A Depression, unspecified; R56.9 Unspecified convulsions; E66.01 Morbid (severe) obesity due to excess calories; Z68.42 Body mass index [BMI] 45.0-49.9, adult
CPT/HCPCS: 99203; 99212

== ENCOUNTER 2023-01-28 19:09 | Outpatient (CLI) | payer OTHER | END 2023-01-28 19:10 | disposition home or self-care (01) | LOC: SC 19:09 | PROVIDERS: ATTEND Nurse Practitioner Family | DX: G47.33 Obstructive sleep apnea (adult) (pediatric) (principal); E66.01 Morbid (severe) obesity due to excess calories; Z68.41 Body mass index [BMI] 40.0-44.9, adult | CPT/HCPCS: 95810 ==

== ENCOUNTER → 2023-02-15 | Outpatient (CLI) | payer OTHER ==
--- NOTE | 2023-02-15 11:47 | SLEEP CARE CONSULTATION ---
Information from patient questionnaire entered by Sabi Sanchez. I have reviewed and concur with the information entered by Sabi Sanchez. This document represents the service I personally performed and the decisions made by , Latasha Brannon ARNP. History of Present Illness Service Date and Time: 02/15/2023 1140 Initial [place] Sleepiness Scale score: 10 (12/20/22) Current [place] Sleepiness Scale score: 8 (02/15/23) Additional HPI information: MAXX FRANCO returns via video telehealth visit for follow up and results of the recently performed polysomnography. I explained the pathophysiology behind obstructive sleep apnea. We then spent quite a bit of time discussing different treatment options. For mild obstructive sleep apnea, surgery and oral appliance are alternatives to nasal CPAP therapy but in moderate or severe cases, nasal CPAP is the most effective and reliable treatment. I reviewed the impact of weight changes on sleep apnea and strongly recommended losing weight. After some discussion, the patient opted to go with the nasal CPAP therapy. Nasal autoCPAP set at 4-15 cmH20 will be ordered with rationale explained. A manual titration study will be ordered if unable to find optimal pressure with office adjustments. I explained how CPAP machine works and what to expect when using the machine. Using CPAP every night in order to get used to it was emphasized. Patient advised to put CPAP mask on before getting into bed so as not to fall asleep without CPAP. To assist acclimation to CPAP use, it could also be used for a short time during day while reading or watching TV. The patient was instructed to call the CPAP supplier to discuss any mechanical problem that may occur. If the mask given is uncomfortable or is difficult to keep on through the night even with adjustment, contact the CPAP supplier as many will replace with another mask style if notified before 30 days. If snoring or perceives is not getting enough air or too much air from the machine, notify this office. Patient does not drink alcohol. Patient was cautioned about risks of drowsy driving until sleepiness symptoms resolve. Patient denies drowsy driving. Sleep Study - Results Type of Sleep Study: Polysomnography (COMPLETED 01/28/23) Prior sleep studies: No Polysomnography/Home Sleep Study results: IMPRESSION: The quality of the study is good. The patient had normal sleep efficiency. The sleep architecture was abnormal for sleep fragmentation and reduced amount of time spent in REM and slow wave sleep (N3). Respiratory monitoring showed mild obstructive sleep apnea-hypopnea (AHI = 5.4) associated with frequent arousals, oxyhemoglobin desaturation and moderate hypoxia (trini oxygen saturation of 79%). The respiratory events occurred almost exclusively during REM sleep. The patient slept mostly supine (supine AHI = 6.8; nonsupine = 0.00). Snore was infrequent and light in intensity. There was no significant periodic leg movement of sleep. Cardiac rhythm was normal sinus rhythm without significant arrhythmia. No abnormal behavior (parasomnia) observed during the night. Allergies and Home Medications Known drug allergies: Yes (as listed) Drug allergies reviewed: Yes Home medication list reviewed: Yes (no changes) Allergy and home medication list: Allergies apple Allergy (Severe, Verified 02/14/23 16:49) Anaphylaxis melon Allergy (Severe, Verified 02/14/23 16:49) Anaphylaxis pt states severe rxn to cantaloupe latex Allergy (Verified 02/14/23 16:49) Hives Raisin [Raisins] Allergy (Verified 02/14/23 16:49) Anaphylaxis grape Adverse Reaction (Severe, Verified 02/14/23 16:49) Anaphylaxis acetaminophen Adverse Reaction (Verified 02/14/23 16:49) Anaphylaxis azithromycin Adverse Reaction (Verified 02/14/23 16:49) See Note Pain with IV infusion diphenhydramine Adverse Reaction (Verified 02/14/23 16:49) Anaphylaxis oxycodone Adverse Reaction (Verified 02/14/23 16:49) Anaphylaxis tramadol Adverse Reaction (Verified 02/14/23 16:49) Anaphylaxis Review of Systems Review of systems same as previous: Yes (no changes) Physical Exam Vital signs obtained and entered by: SABI Mcneal MA Height: 5 ft 5 in (PER PT) Weight: 250 lb (PER PT) Body Mass Index: 41.5 BMI Classification: Morbidly Obese Impression and Plan 1. Obstructive Sleep Apnea-Hypopnea Syndrome, mild, with lowest oxygen saturation of 75%. Obviously this is the cause of the patients symptoms of unrefreshed sleep, and excessive daytime sleepiness. Positive pressure therapy could benefit anxiety, depression, asthma, mood disorder and epilepsy. As mentioned above, the patient will be started on nasal autoCPAP therapy with pressure set at 4-15 cmH2O. Compliance guidelines also reviewed. A copy of compliance guidelines will be given for reference at check out. Because the apnea is more severe supine, I instructed to avoid sleeping supine using pillow positioning until able to start CPAP use. 2. Hypoxemia, moderate, with a trini oxygen saturation of 75% and 3.5 minutes spent under 90%. Her baseline oxygen saturation was normal with an average oxyg en saturation of 95%. * Nasal auto CPAP therapy, pressure at 4-15 cm H2O. * Attempt to lose weight. * Avoid alcohol consumption near bedtime. * Avoid supine sleep until using CPAP. * The patient is again cautioned about driving until sleepiness completely resolves. * Return one month after CPAP obtained. I will assess response to therapy and compliance at that time. Counseling Topics: Weight loss health impact Visit Type: Telehealth Video Video Type: Doximity Patient Location: Home Location of Provider: Office Patient agrees and consents to this telehealth visit type: Yes Patient agrees to have their insurance billed: Yes Time Spent with Patient (minutes): 16 Provider Statement: I spent 100% of the Telehealth Video Call with the patient with greater than 50% spent counseling the patient and coordination of care.
== END ==
LOC: SC 11:40
PROVIDERS: ATTEND Nurse Practitioner Family
DX: G47.33 Obstructive sleep apnea (adult) (pediatric) (principal); R09.02 Hypoxemia; E66.01 Morbid (severe) obesity due to excess calories; Z68.41 Body mass index [BMI] 40.0-44.9, adult

== ENCOUNTER 2023-04-04 09:54 | Outpatient (CLI) | payer OTHER ==
--- NOTE | 2023-04-04 10:34 | Sleep Patient Instructions ---
Sleep Center Visit Summary - Patient Visit Information Reason for Visit: First compliance visit for CPAP therapy followup - Patient Instructions Additional Instructions: You were here for follow up of CPAP therapy. You will be continued on CPAP therapy with pressure changed to 7-10 cmH2O. Please let us know if the pressure change is uncomfortable and we can make further adjustments of the pressure. You should follow up with sleep care in 1-2 months. You may contact us sooner for any questions or concerns. - Clinic Information Contact: [facility] [address] [place] [address] [email or web address] T: [phone]
[2023-04-04 10:39] VITALS: BP 128/78
--- NOTE | 2023-04-04 10:39 | SLEEP CARE CONSULTATION ---
Information from patient questionnaire entered by Heidy Sanchez. I have reviewed and concur with the information entered by Heidy Sanchez. This document represents the service I personally performed and the decisions made by me, Latasha Brannon ARNP. History of Present Illness Service Date and Time: 04/04/2023 0954 Previous diagnosis: Mild, Obstructive Sleep Apnea-Hypopnea Syndrome AHI: 5.4 (in 2022) Reason for follow up: first compliance Accompanied by: child Equipment type: CPAP (ResMed Airsense 11; s/u 02/2023) Mask style: Full face Backup mask available: Yes (other mask) Last cushion change: 2-3 weeks Prior sleep studies: No Type of Sleep Study: Polysomnography (COMPLETED 01/28/23) HPI additional information: MAXX FRANCO was diagnosed to have mild, AHI 5.4, obstructive sleep apnea- hypopnea syndrome and returned today for CPAP therapy first compliance follow- up. Sleep Study - Results Type of Sleep Study: Polysomnography (COMPLETED 01/28/23) Prior sleep studies: No CPAP Compliance Data - Data Reviewed with Patient Average duration of nightly device use: 6 HRS 59 MINS Compliance rate %: 70 (03/04/23-04/02/23; /30 days used) Current pressure setting (cmH2O): 4-15 (median 6.9, avg 9.3, max 10.3) Average residual AHI: 0.7 Central apnea: 0.1 Obstructive apnea: 0.5 Subjective Missed days of use due to: reports: mask issues Patient concerns: reports: air blowing in eyes, mask leak noise, dry mouth, nose, throat. denies: aerophagia, condensation in mask/hose, nasal congestion, epistaxis Observed to snore while using device: No Current pressure setting perceived as: comfortable On therapy, patient: reports: sleeping better, awakening more refreshed, being more awake and alert during the day, more rested overall. denies: drowsiness while driving Initial [place] Sleepiness Scale score: 10 (12/20/22) Current [place] Sleepiness Scale score: 2 (04/04/23) Allergies and Home Medications Known drug allergies: Yes (as listed) Drug allergies reviewed: Yes Home medication list reviewed: Yes (no changes) Allergy and home medication list: Allergies apple Allergy (Severe, Verified 04/03/23 15:06) Anaphylaxis melon Allergy (Severe, Verified 04/03/23 15:06) Anaphylaxis pt states severe rxn to cantaloupe latex Allergy (Verified 04/03/23 15:06) Hives Raisin [Raisins] Allergy (Verified 04/03/23 15:06) Anaphylaxis grape Adverse Reaction (Severe, Verified 04/03/23 15:06) Anaphylaxis acetaminophen Adverse Reaction (Verified 04/03/23 15:06) Anaphylaxis azithromycin Adverse Reaction (Verified 04/03/23 15:06) See Note Pain with IV infusion diphenhydramine Adverse Reaction (Verified 04/03/23 15:06) Anaphylaxis oxycodone Adverse Reaction (Verified 04/03/23 15:06) Anaphylaxis tramadol Adverse Reaction (Verified 04/03/23 15:06) Anaphylaxis Review of Systems Review of systems same as previous: Yes (no changes) Physical Exam Vital signs obtained and entered by: HEIDY Mcneal MA Blood Pressure: 128/78 (LEFT ARM) Cuff size: regular Heart Rate: 82 O2 Saturation: 98 Height: 5 ft 5 in (PER PT) Weight: 262 lb 3.2 oz Body Mass Index: 43.6 BMI Classification: Morbidly Obese Impression and Plan 1. Obstructive Sleep Apnea-Hypopnea Syndrome, mild, with good treatment compliance and good apnea control. On CPAP therapy, the patient has better sleep quality and is more rested overall. She states she tried a nasal mask but was unable to wear it well because her mouth would come open. She changed to a full face ResMed Airfit F30i and likes it better. She is not sure she is using the right size cushion because she gets some air leaking into her eyes. She has tried the large and medium sized cushions. I had her put her mask on and changed her to the small cushion which seemed to fit better. She will try this one tonight. The patients pressure will be changed to autoCPAP 7-10 cmH20 to reflect pressures being used. Patient advised to contact me if pressure change is uncomfortable so that it can be adjusted. Goals for apnea control discussed. Patient's apnea severity and rationale for treatment to reduce apnea, improve sleep quality and reduce cardiovascular and cerebrovascular events was reviewed. I also reviewed the benefit of consistent device use of CPAP for depression, anxiety, asthma, mood disorder and epilepsy. 2. Obesity, unspecified. Currently patients BMI is 43.6. Obesity increases the risk of apnea, CPAP pressure requirements and overall health risks especially cardiovascular and diabetes. Thus patient is advised to lose weight. * Change auto CPAP pressure to 7-10 cmH2O * Notify me if snoring with mask or feeling that the pressure is too much or too little * Attempt to lose weight * Call this office if any problems using CPAP * Return for follow up in 1-2 months, or sooner if concerns arise Counseling Topics: Spare mask, Weight loss health impact Visit Type: In Office Time Spent with Patient (minutes): 22 Provider Statement: I spent 100% of the Face to Face Visit with the patient with greater than 50% spent counseling the patient and coordination of care.
== END 2023-04-04 09:55 | disposition home or self-care (01) ==
LOC: SC 09:54
PROVIDERS: ATTEND Nurse Practitioner Family
DX: G47.33 Obstructive sleep apnea (adult) (pediatric) (principal); E66.01 Morbid (severe) obesity due to excess calories; Z68.41 Body mass index [BMI] 40.0-44.9, adult
CPT/HCPCS: 99212; 99213

== ENCOUNTER 2023-07-30 12:35 | Outpatient (CLI) | payer OTHER ==
--- NOTE | 2023-07-30 15:47 | MRI Report ---
PROCEDURE: BRAIN WO INDICATIONS: TREMOR TECHNIQUE: Noncontrast axial T1 spin echo, axial T2 fast spin echo, sagittal and axial FLAIR, coronal T2 fast sp in echo, axial gradient echo, axial diffusion and ADC through the brain. COMPARISON: None. FINDINGS: Image quality: Excellent. CSF Spaces: Basal cisterns are patent. No extra-axial fluid collections. Ventricles are normal in size and shape. Brain: No intracranial hemorrhage. The pineal gland is enlarged measuring 1.1 cm. It demonstrates in creased T2 signal. Incidental note of empty sella, consistent with congenital variant. Barrett/white mat ter interface is normal. Brainstem appears normal. Diffusion-weighted images demonstrate no acute i schemic insult. No chronic ischemic insults. Normal intravascular flow voids are present. Skull and face: Calvarium has normal marrow signal. Orbits appear normal. Sinuses: Sinuses demonstrate scattered areas of post thickening without fluid level. IMPRESSION: 1. No acute intracranial process. 2. 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 Recommend 6 month interval MRI follow-up with contrast to document stability. Reviewed by: Taylor Jimenez MD on 07/30/2023 3:45 PM PDT Approved by: Taylor Jimenez MD on 07/30/2023 3:45 PM PDT Station ID: [id number]
== END 2023-07-30 12:36 | disposition home or self-care (01) ==
LOC: DI 12:35
PROVIDERS: ATTEND Pediatrics
DX: G40.309 Generalized idiopathic epilepsy and epileptic syndromes, not intractable, without status epilepticus (principal); R25.1 Tremor, unspecified; R90.89 Other abnormal findings on diagnostic imaging of central nervous system

== ENCOUNTER 2023-08-29 12:39 | Outpatient (CLI) | payer OTHER ==
--- NOTE | 2023-08-29 12:56 | Sleep Patient Instructions ---
Sleep Center Visit Summary - Patient Visit Information Reason for Visit: Five month followup for PAP therapy - Patient Instructions Additional Instructions: You were here for follow up of CPAP therapy. You will be continued on CPAP therapy with pressure at 7-10 cmH2O. You should follow up with sleep care in 12 months. You may contact us sooner for any questions or concerns. - Clinic Information Contact: [facility] [address] [place] [address] [email or web address] T: [phone]
--- NOTE | 2023-08-29 12:59 | SLEEP CARE CONSULTATION ---
Information from patient questionnaire entered by Heidy Sanchez. I have reviewed and concur with the information entered by Heidy Sanchez. This document represents the service I personally performed and the decisions made by , Latasha Brannon ARNP. History of Present Illness Service Date and Time: 08/29/2023 1239 Previous diagnosis: Mild, Obstructive Sleep Apnea-Hypopnea Syndrome AHI: 5.4 (in 2022) Reason for follow up: other (5 month f/u) Accompanied by: daughter Equipment type: CPAP (ResMed Airsense 11; s/u 02/2023) Equipment obtained from: [employer] ([employer]) Mask style: Full face Mask brand: Resmed (F30i) Backup mask available: Yes (old mask) Prior sleep studies: No Type of Sleep Study: Polysomnography (COMPLETED 01/28/23) HPI additional information: MAXX FRANCO was diagnosed to have mild, AHI 5.4, obstructive sleep apnea- hypopnea syndrome and returned today for CPAP therapy five month follow-up. Sleep Study - Results Type of Sleep Study: Polysomnography (COMPLETED 01/28/23) Prior sleep studies: No CPAP Compliance Data - Data Reviewed with Patient Average duration of nightly device use: 8 hours 25 mins Compliance rate %: 100 (07/28/23-08/26/23; days used) Current pressure setting (cmH2O): 7-10 Average residual AHI: 1.1 Central apnea: 0.2 Obstructive apnea: 0.8 Hypopnea: 0.1 Average large leak: 2.4 L/min Subjective Patient concerns: denies: aerophagia, mask discomfort, air blowing in eyes, mask leak noise, condensation in mask/hose, nasal congestion, dry mouth, nose, throat, epistaxis Observed to snore while using device: No Current pressure setting perceived as: comfortable On therapy, patient: reports: sleeping better, awakening more refreshed, being more awake and alert during the day, more rested overall. denies: drowsiness while driving Initial [place] Sleepiness Scale score: 10 (12/20/22) Current [place] Sleepiness Scale score: 0 (08/29/23) Allergies and Home Medications Known drug allergies: Yes (as listed) Drug allergies reviewed: Yes Home medication list reviewed: Yes (no changes) Allergy and home medication list: Allergies apple Allergy (Severe, Verified 08/28/23 09:10) Anaphylaxis melon Allergy (Severe, Verified 08/28/23 09:10) Anaphylaxis pt states severe rxn to cantaloupe latex Allergy (Verified 08/28/23 09:10) Hives Raisin [Raisins] Allergy (Verified 08/28/23 09:10) Anaphylaxis grape Adverse Reaction (Severe, Verified 08/28/23 09:10) Anaphylaxis acetaminophen Adverse Reaction (Verified 08/28/23 09:10) Anaphylaxis azithromycin Adverse Reaction (Verified 08/28/23 09:10) See Note Pain with IV infusion diphenhydramine Adverse Reaction (Verified 08/28/23 09:10) Anaphylaxis oxycodone Adverse Reaction (Verified 08/28/23 09:10) Anaphylaxis tramadol Adverse Reaction (Verified 08/28/23 09:10) Anaphylaxis Review of Systems Review of systems same as previous: Yes (NO CHANGE) Physical Exam Vital signs obtained and entered by: HEIDY Mcneal MA Blood Pressure: 124/76 (LEFT ARM) Cuff size: long Heart Rate: 72 O2 Saturation: 98 Height: 5 ft 5 in (PER PT) Weight: 274 lb 6.4 oz Body Mass Index: 45.6 BMI Classification: Morbidly Obese Impression and Plan 1. Obstructive Sleep Apnea-Hypopnea Syndrome, mild, with good treatment compliance and good apnea control. On CPAP therapy, the patient has better sleep quality and is more rested overall. Patient has significant improvement of their sleep apnea and is satisfied with current CPAP therapy. Patient denies problems with oral dryness, nasal congestion, epistaxis, skin irritation or aerophagia. She is comfortable with CPAP use and we will followup with her next year. Patient's apnea severity and rationale for treatment to reduce apnea, improve sleep quality and reduce cardiovascular and cerebrovascular events was reviewed. I also reviewed the benefit of consistent device use of CPAP for depression/anxiety, asthma, mood disorder and epilepsy. 2. Obesity, unspecified. Currently patients BMI is 45.6. Obesity increases the risk of apnea, CPAP pressure requirements and overall health risks especially cardiovascular and diabetes. Thus patient is advised to lose weight. * Continue auto CPAP pressure at 7-10 cmH2O * Notify me if snoring with mask or feeling that the pressure is too much or too little * Attempt to lose weight * Call this office if any problems using CPAP * Return for follow up in 1 year, or sooner if concerns arise Counseling Topics: Spare mask, Weight loss health impact Follow up with Sleep Care in: 1 year Visit Type: In Office Time Spent with Patient (minutes): 13 Provider Statement: I spent 100% of the Face to Face Visit with the patient with greater than 50% spent counseling the patient and coordination of care.
[2023-08-29 13:11] VITALS: BP 124/76; O2SAT 98
== END 2023-08-29 12:40 | disposition home or self-care (01) ==
LOC: SC 12:39
PROVIDERS: ATTEND Nurse Practitioner Family
DX: G47.33 Obstructive sleep apnea (adult) (pediatric) (principal); E66.01 Morbid (severe) obesity due to excess calories; Z68.42 Body mass index [BMI] 45.0-49.9, adult
CPT/HCPCS: 99212

== ENCOUNTER 2024-01-03 12:26 | Outpatient (CLI) | payer OTHER ==
[2024-01-03] MEDS ORDERED: GADOTERATE MEGLUMINE 10 MMOL/20 ML VIAL ONE (12:40)
[2024-01-03] MEDS ORDERED: GADOTERATE MEGLUMINE 5 MMOL/10 ML VIAL ONE (12:40)
[2024-01-03] MEDS: GADOTERATE MEGLUMINE 10 MMOL/20 ML VIAL IVP ONE (13:27)
--- NOTE | 2024-01-06 16:25 | MRI Report ---
PROCEDURE: Brain W/WO INDICATIONS: ABN BRAIN MRI CONTRAST: CLARISCAN 24.4 ML TECHNIQUE: Noncontrast axial T1 spin echo, axial T2 fast spin echo, sagittal and axial FLAIR, coronal T2 fast sp in echo, axial gradient echo, axial diffusion and ADC through the brain. After the administration of contrast, axial and coronal T1 spin echo with fat saturation through the brain. COMPARISON: MRI brain 07/30/2023 FINDINGS: Image quality: Excellent. CSF spaces: Basal cisterns are patent. No extra-axial fluid collections. Ventricles are normal in size and shape. Brain: No midline shift. No intracranial bleeds. Pineal gland enlargement is unchanged. No abnorma l intracranial enhancement. There is cerebral volume loss for age. There is periventricular white m atter chronic small vessel ischemic change. The brainstem appears normal. Diffusion-weighted images demonstrate no acute ischemic insults. No chronic ischemic insults. Normal intravascular flow void s are present. Skull and face: Calvarial marrow is normal in signal. Orbits appear normal. Sinuses: Sinuses demonstrate mucosal thickening. 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 Reviewed by: Taylor Jimenez MD on 01/06/2024 4:23 PM PST Approved by: Taylor Jimenez MD on 01/06/2024 4:23 PM PST Station ID: [id number]
== END 2024-01-03 12:27 | disposition home or self-care (01) ==
LOC: DI 12:26
PROVIDERS: ATTEND Pediatrics
DX: R90.89 Other abnormal findings on diagnostic imaging of central nervous system (principal); E34.8 Other specified endocrine disorders
CPT/HCPCS: 70553; A9575

== ENCOUNTER 2024-07-23 17:32 | Emergency (ER) | payer OTHER ==
[2024-07-23 18:10] LABS: BASOPHILS # (AUTO) 0.1 10^3/uL (0.0-0.1); BASOPHILS % (AUTO) 0.5 %; EOSINOPHILS # (AUTO) 0.5 10^3/uL (0.0-0.7); HCT - HEMATOCRIT 41.2 % (37.0-47.0); HGB - HEMOGLOBIN 13.8 g/dL (12.0-16.0); LYMPHOCYTES % (AUTO) 41.2 %; MEAN CORPUSCULAR HEMOGLOBIN 27.4 pg (27.0-31.0); MEAN CORPUSCULAR HGB CONC 33.5 g/dL (32.0-36.0); MEAN CORPUSCULAR VOLUME 81.9 fL (81.0-99.0); MEAN PLATELET VOLUME 10.3 fL (7.9-10.8); MONOCYTES # (AUTO) 0.9 10^3/uL (0.0-1.0); MONOCYTES % (AUTO) 7.6 %; NEUTROPHILS # (AUTO) 5.6 10^3/uL (1.5-6.6); NEUTROPHILS % (AUTO) 46.5 %; PLT - PLATELET COUNT 299 10^3/uL (130-450); RED BLOOD COUNT 5.03 10^6/uL (4.20-5.40); RED CELL DISTRIBUTION WIDTH 12.2 % (12.0-15.0); WHITE BLOOD COUNT 12.1 x10^3/uL (4.8-10.8)
--- NOTE | 2024-07-23 18:13 | XRAY Report ---
PROCEDURE: Chest 1V INDICATIONS: Chest pain TECHNIQUE: One view of the chest was acquired. COMPARISON: Chest x-ray 11/19/2022. FINDINGS: Surgical changes and devices: None. Lungs and pleura: No pleural effusions or pneumothorax. Lungs are clear. Mediastinum: Mediastinal contours appear normal. Heart size is normal. Bones and chest wall: No suspicious bony lesions. Overlying soft tissues appear unremarkable. IMPRESSION: No acute cardiopulmonary process. Reviewed by: Narda Spencer MD, PhD on 07/23/2024 6:12 PM PDT Approved by: Narda Spencer MD, PhD on 07/23/2024 6:12 PM PDT Station ID: [id number]
[2024-07-23 18:28] LABS: ALBUMIN 4.3 g/dL (3.2-5.5); ALBUMIN/GLOBULIN RATIO 1.4 (1.0-2.2); ALKALINE PHOSPHATASE 68 IU/L (42-121); ALT ALANINE AMINOTRANSFERASE 30 IU/L (10-60); AST ASPARTATE AMINOTRANSFERASE 23 IU/L (10-42); BILIRUBIN,TOTAL 0.4 mg/dL (0.2-1.0); BUN - BLOOD UREA NITROGEN 8 mg/dL (6-20); CALCIUM 10.1 mg/dL (8.5-10.3); CARBON DIOXIDE - CO2 27 mmol/L (21-32); CHLORIDE 104 mmol/L (101-111); CREATININE 0.8 mg/dL (0.6-1.3); GFR - MDRD 85 (>89); GLUCOSE 91 mg/dL (74-104); LIPASE 18 U/L (11-82); POTASSIUM 3.9 mmol/L (3.5-4.5); SODIUM 140 mmol/L (135-145); TOTAL PROTEIN 7.3 g/dL (6.4-8.9)
[2024-07-23 18:30] LABS: TROPONIN I HIGH SENSITIVITY < 2.3 ng/L (2.3-14.8)
--- NOTE | 2024-07-23 19:35 | ED Physician Documentation ---
PD HPI CHEST PAIN - Stated complaint Stated Complaint: CHEST PX - Chief complaint Chief Complaint: Cardiac - History obtained from History obtained from: Patient - Additional information Additional information: 29-year-old woman with past medical history of seizure disorder, Presents with chest pain around 1630 tinnitus with associated shortness of breath. Patient denies fever, cough, hemoptysis, leg swelling, nausea vomiting diarrhea, abdominal pain, back pain. 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 : None Psych: Anxiety Musculoskeletal: None Derm: None - Past Surgical History Past Surgical History: No General: Cholecystectomy HEENT: Tonsil/Adenoidectomy, Other - Present Medications Home Medications: Ambulatory Orders Medication Instructions Recorded Confirmed Levetiracetam [Keppra] See Rx Instructions .ROUTE .COMPLEX 12/20/22 08/29/23 [place] Aspartate [Lithate] See Rx Instructions .ROUTE .COMPLEX 12/20/22 08/29/23 [place] Carbonate See Rx Instructions .ROUTE .COMPLEX 12/20/22 08/29/23 hydrOXYzine HCL [Hydroxyzine HCl] See Rx Instructions .ROUTE .COMPLEX 12/20/22 08/29/23 - Allergies Allergies/Adverse Reactions: Allergies Allergy/AdvReac Type Severity Reaction Status Date / Time apple Allergy Severe Anaphylaxis Verified 07/23/24 17:36 melon Allergy Severe Anaphylaxis Verified 07/23/24 17:36 latex Allergy Hives Verified 07/23/24 17:36 Raisin [Raisins] Allergy Anaphylaxis Verified 07/23/24 17:36 grape AdvReac Severe Anaphylaxis Verified 07/23/24 17:36 acetaminophen AdvReac Anaphylaxis Verified 07/23/24 17:36 azithromycin AdvReac See Note Verified 07/23/24 17:36 diphenhydramine AdvReac Anaphylaxis Verified 07/23/24 17:36 oxycodone AdvReac Anaphylaxis Verified 07/23/24 17:36 tramadol AdvReac Anaphylaxis Verified 07/23/24 17:36 - Social History Does the pt smoke?: No Smoking Status: Never smoker Does the pt drink ETOH?: No Does the pt have substance abuse?: No - Immunizations Immunizations are current?: Yes - POLST Patient has POLST: No POLST Status: Full Code PD ED PE NORMAL - Vitals Vital signs reviewed: Yes - General General: Alert and oriented X 3, No acute distress, Well developed/nourished - HEENT HEENT: Atraumatic, PERRL, EOMI - Neck Neck: Supple, no meningeal sign - Cardiac Cardiac: RRR - Respiratory Respiratory: No respiratory distress, Clear bilaterally - Abdomen Abdomen: Non tender, Non distended Results - Vitals Vitals: Vital Signs - 24 hr 07/23/24 07/23/24 07/23/24 17:36 18:59 19:52 Temperature 36.5 C Heart Rate 95 101 H 69 Respiratory 16 20 17 Rate Blood Pressure 150/100 H 143/108 H 127/86 H O2 Saturation 99 97 96 Oxygen O2 Source Room air - EKG (time done) 1744 EKG releavant findings:: EKG personally interpreted by author of this note. Relevant findings are: Rate: Rate (enter#) (101) Rhythm: Sinus tachycardia Ischemia: Other (profound baseline artifact) - Labs Labs: Laboratory Tests 07/23/24 07/23/24 18:05 18:05 WBC 12.1 H RBC 5.03 Hgb 13.8 Hct 41.2 MCV 81.9 MCH 27.4 MCHC 33.5 RDW 12.2 Plt Count 299 MPV 10.3 Neut # (Auto) 5.6 Lymph # (Auto) 5.0 H [place] # (Auto) 0.9 Eos # (Auto) 0.5 Baso # (Auto) 0.1 Absolute Nucleated RBC 0.00 Nucleated RBC % 0.0 Sodium 140 Potassium 3.9 Chloride 104 Carbon Dioxide 27 Anion Gap 9.0 BUN 8 Creatinine 0.8 Estimated GFR (MDRD) 85 L Glucose 91 Calcium 10.1 Total Bilirubin 0.4 AST 23 ALT 30 Alkaline Phosphatase 68 Troponin I High Sens < 2.3 L Total Protein 7.3 Albumin 4.3 Globulin 3.0 Albumin/Globulin Ratio 1.4 Lipase 18 PD Medical Decision Making - ED course ED course: 29-year-old woman presented with low risk chest pain in the emergency department tonight, with normal lab work, chest x-ray and benign EKG. Symptomatic care discussed and return precautions given. Plan to follow-up with her primary care provider. Departure - Departure Disposition: 01 Home, Self Care Clinical Impression: Chest pain Condition: Stable Instructions: ED Chest Pain NonCardiac Comments: You were seen in the emergency department for chest pain. Your workup in the emergency department uncovered no emergent issues. Please follow up with your primary care provider or walk in clinic if symptoms persist. Please follow-up with your primary care provider and return to the emergency department if you have any new or worsening symptoms or other concerns. Forms: PCP List Discharge Date/Time: 07/23/24 19:59
[2024-07-23] MEDS: KETOROLAC 10 MG TABLET PO STA (19:53)
[2024-07-23 20:02] VITALS: BP 127/86; O2SAT 96
== END 2024-07-23 19:59 | disposition home or self-care (01) ==
LOC: ED 17:32
DX: R07.9 Chest pain, unspecified (principal)
CPT/HCPCS: 36415; 71045; 80053; 83690; 84484; 85025; 93005; 99283; 99284; A9270